=== PATIENT | female | born 1975 | race Caucasian/White ===

== ENCOUNTER 2016-09-03 16:06 | Inpatient (IN) | payer MEDICARE, MEDICAID ==
[2016-09-03] MEDS ORDERED: Tuberculin 5 TU/0.1 mL UD ID ONE ×2 (16:50→17:32)
--- NOTE | 2016-09-03 16:59 | ED Physician Chart ---
Chief Complaint/HPI - Patient Information Date Seen:: 09/03/16 Time Seen:: 16:53 Chief Complaint:: multiple complaints History of Present Illness:: pt has profound MR. was sent from facility for concern about PEG site redness and worry that peg tube is malpositioned?? also staff noted recent blood tinged cough. pt is severe MR and nonverbal and cant communicated through nonverbal means. sev dev limitations. no known fever or weakness. no known melena. red around peg tube site. pt of dr long Allergies:: Allergies Allergy/AdvReac Type Severity Reaction Status Date / Time ceftriaxone Allergy Verified 06/14/16 04:59 tetanus toxoid, adsorbed Allergy Verified 06/14/16 04:59 valproic acid Allergy Verified 06/14/16 04:59 Vitals:: Vital Signs - 8 hr 09/03/16 16:06 Temp 96.6 F HR 62 RR 16 BP 96/60 O2 Sat % 93 Historian:: Medical Records Review:: Transfer documents Reviewed, Patient unable to respond Review of Systems - Review of Systems General/Constitutional: No fever, No chills, No weight loss, No weakness, No diaphoresis, No edema, Other (nonverbal pt w sev limited ros/pmh availability) Skin: Skin lesions, No rash, No bruising Head: No headache, No light-headedness Eyes: No loss of vision, No pain, No diplopia ENT: No earache, No nasal drainage, No sore throat Neck: No neck pain, No swelling, No thyromegaly, No stiffness, No mass noted Cardio Vascular: No chest pain, No palpitations, No PND, No orthopnea, No edema Pulmonary: No SOB, Cough, Sputum, No wheezing, Other (hemoptysis) GI: No nausea, No vomiting, No diarrhea, No pain, No melena, No hematochezia, No constipation, Hematemesis (?) G/U: No dysuria, No frequency, No hematuria Musculoskeletal: No bone or joint pain, No back pain, No muscle pain Endocrine: No polyuria, No polydipsia Psychiatric: No prior psych history, No depression, No anxiety, No suicidal ideation Hematopoietic: No bruising, No lymphadenopathy Allergic/Immuno: No urticaria, No angioedema Neurological: No syncope, No focal symptoms, No weakness, No paresthesia, No headache, No seizure, No dizziness, Confusion, No vertigo Past Medical History - Past Medical History Past Medical History: HTN, PUD/GERD (dysphagia), Seizures, Other (MR, "spastic quad"?, blind, anemia, ) Social History: Care Facility Surgical History: PEG/GTube Medication: Reviewed Family Medical History - Family Member Mother History Unknown: Yes Ethnicity: Unknown Physical Exam - Physical Examination General/Constitutional: Awake, Well-developed, well-nourished, Alert, No distress, Non-toxic appearing Other Gen/Cons comments:: spastic choreoathetoid mvts/resltlessness. nonverbal. nonseptic. alert. no cough heard. no resp distress at present. lungs clear. mild 1 inch redness around peg tube site in luq abd. no active seepage now. Head: Atraumatic Other Head comments:: micorocephalic Eyes: Lids, conjuctiva normal, PERRL, EOMI Skin: Nl inspection, No rash, No skin lesions, No ecchymosis, Well hydrated, No lymphadenopathy ENMT: External ears, nose nl, Nasal exam nl, Lips, teeth, gums nl Neck: Nontender, Full ROM w/o pain, No JVD, No nuchal rigidity, No bruit, No mass, No stridor Respiratory: Nl effort/Exclusion, Clear to Auscultation, No Wheeze/Rhonchi/Rales Cardio Vascular: RRR, No murmur, gallop, rubs, NL S1 S2 GI: No tenderness/rebounding/guarding, No organomegaly, No hernia, Normal BS's, Nondistended, No mass/bruits, No McBurney tenderness : No CVA tenderness Extremities: No tenderness or effusion, Full ROM, normal strength in all extremities, No edema, Normal digits & nails Neuro/Psych: DTR's symmetric Other Neuro/Psych comments:: spastic mvts all limbs/ contractures. nonverbal. Misc: normal gait, Normal back, No paraspinal tenderness Labs/Radiology/EKG Results - Lab Results Results: Laboratory Tests 09/03/16 09/03/16 09/03/16 17:15 17:15 17:15 WBC 9.9 D RBC 5.00 Hgb 14.4 D Hct 43.4 D MCV 86.8 MCH 28.8 MCHC Differential 33.1 RDW 12.4 Plt Count 253 D MPV 8.5 Neutrophils % 67.4 Lymphocytes % 15.0 L Monocytes % 10.1 H Eosinophils % 5.7 H Basophils % 1.8 Sodium 134 L Potassium 4.0 Chloride 102 Carbon Dioxide 22.8 Anion Gap 13.2 BUN 22 Creatinine 0.6 Est GFR ( Amer) > 60.0 Est GFR (Non-Af Amer) > 60.0 BUN/Creatinine Ratio 36.7 Glucose 88 Whole Bld Lactic Acid 2.14 H* Calcium 9.7 Total Bilirubin 0.3 AST 19 ALT 26 Alkaline Phosphatase 94 Total Protein 8.6 H Albumin 4.2 Globulin 4.4 Albumin/Globulin Ratio 1.0 Carbamazepine 09/03/16 17:15 WBC RBC Hgb Hct MCV MCH MCHC Differential RDW Plt Count MPV Neutrophils % Lymphocytes % Monocytes % Eosinophils % Basophils % Sodium Potassium Chloride Carbon Dioxide Anion Gap BUN Creatinine Est GFR ( Amer) Est GFR (Non-Af Amer) BUN/Creatinine Ratio Glucose Whole Bld Lactic Acid Calcium Total Bilirubin AST ALT Alkaline Phosphatase Total Protein Albumin Globulin Albumin/Globulin Ratio Carbamazepine 4.5 - Radiology Results Results: cxr chronic change but no acute process ED Septic Shock - . Is Septic Shock (SBP<90, OR Lactate>4 mmol\\L) present?: No - <6hrs of presentation: Vital Signs: Vital Signs - 8 hr 09/03/16 16:06 Temp 96.6 F HR 62 RR 16 BP 96/60 O2 Sat % 93 Reassessment (Disposition) - Reassessment Reassessment:: brian Long...will admit for upper endoscopy and GI consult to replace presumptively-leaky peg tube. Reassessment Condition:: Unchanged - Diagnosis Diagnosis:: 1 hemoptysis vs upper GI bleed 2 CP patient//severe MR 3 PEG tube problem - Patient Disposition Admitted to:: Med/Surg Condition at Disposition:: Unchanged
[2016-09-03 17:32] LABS: % BASOPHILS 1.8 % (0.0-2.0); % EOSINOPHILS 5.7 % (0.0-5.0); % MONOCYTES 10.1 % (2.0-10.0); % NEUTROPHILS 67.4 % (40.0-80.0); MEAN CELL VOLUME 86.8 fl (81-100); MEAN CORPUSCULAR HEMOGLOBIN 28.8 pg (27.0-31.0); MEAN CORPUSCULAR HGB CONC 33.1 pg (28.0-36.0); MEAN PLATELET VOLUME 8.5 fl; NEUTROPHILE ABSOLUTE 6.6 Th/cmm (1.8-8.0); RED CELL DISTRIBUTION WIDTH 12.4 % (11.5-20.0)
[2016-09-03 17:34] LABS: HEMATOCRIT 43.4 % (35.0-45.0); HEMOGLOBIN 14.4 gm/dL (11.7-15.5); WHITE BLOOD COUNT 9.9 Th/cmm (4.8-10.8)
[2016-09-03 17:35] LABS: PLATELET COUNT 253 Th/cmm (150-400)
[2016-09-03 17:52] LABS: ALKALINE PHOSPHATASE 94 U/L (34-104); ANION GAP 13.2 (7.0-16.0); BILIRUBIN,TOTAL 0.3 mg/dL (0.3-1.0); BUN - UREA NITROGEN 22 mg/dL (7-25); BUN/CREATININE RATIO 36.7; CALCIUM SERUM 9.7 mg/dL (8.6-10.3); CARBON DIOXIDE 22.8 mEq/L (21.0-31.0); CHLORIDE 102 mEq/L (98-107); CREATININE - SERUM 0.6 mg/dL (0.6-1.2); GLUCOSE 88 mg/dL (70-105); SGOT 19 U/L (13-39); SGPT/ALT 26 U/L (7-52); SODIUM SERUM 134 mEq/L (136-145)
--- NOTE | 2016-09-03 22:45 | Admit Criteria Form ---
Admit Criteria Forms - Admit Criteria Diagnosis: GASTROINTESTINAL BLEEDING, UPPER Clinical Indications for Admission to Inpatient Care ( Place 'X' for any and all applicable criteria): Admission is indicated for ANY ONE of the following(1)(2)(3)(4)(5)(6): [ ]I. Active bleeding (eg, fresh voluminous blood in emesis or nasogastric aspirate) [ ]II. Associated conditions requiring hospitalization (eg, perforation, obstruction from ulcer) [X ]III. Inpatient admission required rather than observation care (Also use Gastrointestinal Bleeding, Upper: Observation Care as appropriate) because of ANY ONE of the following: [ ]a) Hemodynamic instability that is severe or persistent [ ]b) Anemia requiring inpatient admission as indicated by ALL of the following: [ ]1) Presence of significant clinical finding indicated by ANY ONE of the following: [ ]A. Tachycardia for age [ ]B. Orthostatic vital sign changes [ ]C. Cognitive impairment [ ]D. Heart failure [ ]E. Chest pain [ ]F. Exertional dyspnea [ ]G. Other findings suggesting inadequate perfusion (eg, peripheral or myocardial ischemia, end organ dysfunction) [ ]2) Initial (eg, emergency department, observation care) treatment with transfusion or volume replacement is judged inappropriate (due to severity of the finding) or has been ineffective [ ]c) Severe pain requiring acute inpatient management [ ]d) High-risk low platelet count [ ]e) IV fluid to replace significant ongoing losses (greater than 3 L/m2 per day) [ ]f) Immediate inpatient surgery [ X]g) Other condition, treatment or monitoring requiring inpatient admission [ ]IV. Severe liver disease (eg, cirrhosis) [ ]V. Significant active comorbid disease [ ]. Anticoagulation therapy [ ]VII. High-risk endoscopic features (arterial bleeding, adherent clot, nonbleeding visible vessel, varices, flat red spots, ulcer size greater than 2 cm, or portal hypertensive gastropathy) [ ]VIII. Previous aortic graft placement or known aortic aneurysm [ ]IX. Coagulopathy [ ]X. Syncope Extended stay beyond goal length of stay may be needed for(1)(2): [ ]a) Emergency surgery [ ]b) Varices [ ]c) Coagulation abnormalities [ ]d) Recurrent, obscure, or persistent bleeding or continued Hemodynamic instability [ ]e) Associated conditions requiring surgery (eg, perforated gastric ulcer, gastric outlet obstruction) [ ]f) Active comorbidities (eg, renal insufficiency, heart failure, pre- existing liver disease) The original [facility] [employer] content created by [facility] [employer] has been revised. The portions of the content which have been revised are identified through the use of italic text or in bold, and [facility] has neither reviewed nor approved the modified material. All other unmodified content is copyright [facility] [employer]. Please see references footnoted in the original [facility] [employer] edition 2016
[2016-09-03] MEDS ORDERED: Fleet Enema 135 mL RC PRN (22:53)
[2016-09-03] MEDS ORDERED: Maalox 30 mL Cup PO PRN (22:56)
[2016-09-03] MEDS: D5-0.45NS 1,000 ML IV SCH (23:27)
[2016-09-04] MEDS: Levofloxacin 500mg/100mL 500 MG/100 ML BAG IV SCH ×2 (02:51→23:43)
[2016-09-04 07:32] LABS: HEMOGLOBIN 13.2 gm/dL (11.7-15.5); MEAN CELL VOLUME 84.6 fl (81-100); MEAN CORPUSCULAR HEMOGLOBIN 28.9 pg (27.0-31.0); MEAN CORPUSCULAR HGB CONC 34.1 pg (28.0-36.0); MEAN PLATELET VOLUME 8.9 fl; PLATELET COUNT 271 Th/cmm (150-400); RED BLOOD COUNT 4.55 Mil/cmm (3.80-5.10); RED CELL DISTRIBUTION WIDTH 12.6 % (11.5-20.0); WHITE BLOOD COUNT 11.2 Th/cmm (4.8-10.8)
[2016-09-04 07:35] LABS: HEMATOCRIT 38.5 % (35.0-45.0)
[2016-09-04] MEDS ORDERED: Ipratropium Neb 0.5 mg/2.5 mL UD HHN PRN (07:35)
[2016-09-04] MEDS ORDERED: Albuterol Nebulizer 2.5mg/3mL HHN PRN (07:35)
[2016-09-04 07:43] LABS: INR 1.1 (0.5-1.4)
[2016-09-04 07:49] LABS: ANION GAP 11.5 (7.0-16.0); BUN - UREA NITROGEN 23 mg/dL (7-25); BUN/CREATININE RATIO 38.3; CALCIUM SERUM 9.3 mg/dL (8.6-10.3); CARBON DIOXIDE 24.2 mEq/L (21.0-31.0); CHLORIDE 102 mEq/L (98-107); CREATININE - SERUM 0.6 mg/dL (0.6-1.2); GLUCOSE 143 mg/dL (70-105); MAGNESIUM 2.2 mg/dL (1.9-2.7); POTASSIUM SERUM 3.7 mEq/L (3.5-5.1); SODIUM SERUM 134 mEq/L (136-145)
[2016-09-04 08:21] LABS: BAND NEUTROPHILE 3 % (0-10); EOSINOPHIL 6 % (0-5); NEUTROPHILS 76 % (40-80); PLATELET ESTIMATE ADEQUATE (NORMAL); TOTAL CELLS COUNTED 100
[2016-09-04 08:22] LABS: PLATELET MORPHOLOGY NORMAL (NORMAL)
[2016-09-04 08:27] LABS: BNP 8.6 pg/mL (5.0-100.0)
[2016-09-04 08:56] LABS: TSH 2.05 uIU/ml (0.34-5.60)
[2016-09-04] MEDS: Multivitamin w/ Minerals Tab GT SCH (08:56)
[2016-09-04] MEDS: Benztropine 1 MG TAB GT SCH ×2 (08:56→16:38)
[2016-09-04] MEDS: carBAMazepine 200 mg/10 mL UDC GT SCH ×3 (08:57→21:56)
[2016-09-04] MEDS: Levetiracetam 500 mg/5mL 5mL UDC GT SCH ×2 (08:57→16:37)
[2016-09-04] MEDS: Potassium Chloride Elixir 20 mEq /15 mL UDC GT SCH (08:57)
[2016-09-04] MEDS: Ferrous Sulfate 300 MG/5 ML UDC GT SCH ×2 (08:57→16:37)
[2016-09-04] MEDS: POLYETHYLENE GLYCOL 3350 17 GM PACK GT SCH (08:58)
[2016-09-04] MEDS ORDERED: Ascorbic Acid 500 mg/5 mL UDC GT SCH (09:00)
--- NOTE | 2016-09-04 09:39 | Diagnostic Imaging Report ---
CHEST X-RAY: AP view INDICATION: Hemoptysis COMPARISON: 06/14/2016 FINDINGS: Mild chronic changes are seen. No focal consolidation or pleural effusions. Heart size is normal. Degenerative changes of the spine are noted. IMPRESSION: Mild chronic lung changes with no focal consolidation identified.
--- NOTE | 2016-09-04 14:13 | Internal Medicine Prog Note ---
Internal Medicine Subjective - Subjective Service Date: 09/04/16 (dc summary [id number]) Internal Medicine Objective - Results Result Diagrams: 09/04/16 06:50 09/04/16 06:50 Recent Labs: Laboratory Last Values WBC 11.2 Th/cmm (4.8-10.8) H 09/04/16 06:50 RBC 4.55 Mil/cmm (3.80-5.10) 09/04/16 06:50 Hgb 13.2 gm/dL (11.7-15.5) 09/04/16 06:50 Hct 38.5 % (35.0-45.0) D 09/04/16 06:50 MCV 84.6 fl (81-100) 09/04/16 06:50 MCH 28.9 pg (27.0-31.0) 09/04/16 06:50 MCHC Differential 34.1 pg (28.0-36.0) 09/04/16 06:50 RDW 12.6 % (11.5-20.0) 09/04/16 06:50 Plt Count 271 Th/cmm (150-400) 09/04/16 06:50 MPV 8.9 fl 09/04/16 06:50 Neutrophils % 67.4 % (40.0-80.0) 09/03/16 17:15 Band Neutrophils % 3 % (0-10) 09/04/16 06:50 Lymphocytes % 15.0 % (20.0-50.0) L 09/03/16 17:15 Monocytes % 10.1 % (2.0-10.0) H 09/03/16 17:15 Eosinophils % 5.7 % (0.0-5.0) H 09/03/16 17:15 Basophils % 1.8 % (0.0-2.0) 09/03/16 17:15 Neutrophils (Manual) 76 % (40-80) 09/04/16 06:50 Lymphocytes 4 % (20-50) L 09/04/16 06:50 Monocytes 11 % (2-10) H 09/04/16 06:50 Eosinophils 6 % (0-5) H 09/04/16 06:50 Platelet Estimate ADEQUATE (NORMAL) 09/04/16 06:50 Platelet Morphology NORMAL (NORMAL) 09/04/16 06:50 RBC Morph Micro Appear NORMAL (NORMAL) 09/04/16 06:50 PT 11.0 SECONDS (9.5-11.5) 09/04/16 06:50 INR 1.10 (0.5-1.4) 09/04/16 06:50 PTT (Actin FS) 26.3 SECONDS (26.0-38.0) 09/04/16 06:50 Sodium 134 mEq/L (136-145) L 09/04/16 06:50 Potassium 3.7 mEq/L (3.5-5.1) 09/04/16 06:50 Chloride 102 mEq/L (98-107) 09/04/16 06:50 Carbon Dioxide 24.2 mEq/L (21.0-31.0) 09/04/16 06:50 Anion Gap 11.5 (7.0-16.0) 09/04/16 06:50 BUN 23 mg/dL (7-25) 09/04/16 06:50 Creatinine 0.6 mg/dL (0.6-1.2) 09/04/16 06:50 Est GFR ( Amer) > 60.0 ml/min 09/04/16 06:50 Est GFR (Non-Af Amer) > 60.0 ml/min 09/04/16 06:50 BUN/Creatinine Ratio 38.3 09/04/16 06:50 Glucose 143 mg/dL (70-105) H 09/04/16 06:50 Whole Bld Lactic Acid 1.00 mmol/L (0.60-2.00) 09/04/16 06:50 Calcium 9.3 mg/dL (8.6-10.3) 09/04/16 06:50 Magnesium 2.2 mg/dL (1.9-2.7) 09/04/16 06:50 Total Bilirubin 0.3 mg/dL (0.3-1.0) 09/03/16 17:15 AST 19 U/L (13-39) 09/03/16 17:15 ALT 26 U/L (7-52) 09/03/16 17:15 Alkaline Phosphatase 94 U/L (34-104) 09/03/16 17:15 Ammonia 58 umol/L (16-53) H 09/04/16 06:50 B-Natriuretic Peptide 8.6 pg/mL (5.0-100.0) 09/04/16 06:50 Total Protein 8.6 gm/dL (6.0-8.3) H 09/03/16 17:15 Albumin 4.2 gm/dL (3.7-5.3) 09/03/16 17:15 Globulin 4.4 gm/dL 09/03/16 17:15 Albumin/Globulin Ratio 1.0 (1.0-1.8) 09/03/16 17:15 TSH 2.05 uIU/ml (0.34-5.60) 09/04/16 06:50 Carbamazepine 4.5 ug/ml (4.0-12.0) 09/03/16 17:15 - Physical Exam Vitals and I&O: Vital Signs Temp 97.8 F 09/04/16 12:23 Pulse 64 09/04/16 12:23 Resp 17 09/04/16 12:23 BP 110/57 09/04/16 12:23 Pulse Ox 95 09/04/16 12:23 Intake & Output 09/03/16 09/04/16 09/04/16 18:59 06:59 18:59 Intake Total 100 Balance 100 Weight (lbs) 87 lb Intake: Intake, IV Amount 100 Levofloxacin 500mg/100mL 100 500 mg In 100 ml @ 100 mls/hr IV Q24HR [facility] Rx#: [id number] Oral 0 Other: # Voids 3 # Bowel Movements 1 Active Medications: Current Medications Acetaminophen (Tylenol) 650 mg GT Q4H PRN PRN Reason: Pain or Fever >101 Stop: 11/02/16 22:52 Al Hydrox/Mg Hydrox/Simethicone (Maalox) 30 ml PO Q6HR PRN PRN Reason: Constipation Stop: 11/02/16 22:55 Albuterol Sulfate (Albuterol 2.5mg/3ml Neb Ud) 2.5 mg HHN Q4H PRN PRN Reason: Shortness of Breath Stop: 11/03/16 07:34 Ascorbic Acid (Vitamin C) 500 mg GT DAILY [facility] Stop: 11/03/16 08:59 Last Admin: 09/04/16 11:05 Dose: Not Given Benztropine Mesylate (Cogentin) 1 mg GT BID [facility] Stop: 11/03/16 08:59 Last Admin: 09/04/16 08:56 Dose: 1 mg Bisacodyl (Dulcolax 10 Mg Supp) 10 mg RC DAILY PRN PRN Reason: Constipation Stop: 11/02/16 23:31 Calcium Carbonate (Tums) 500 mg GT BID JU[facility] Stop: 11/03/16 08:59 Last Admin: 09/04/16 08:56 Dose: 500 mg Carbamazepine (Tegretol) 200 mg GT TID JUANI PRN Reason: Protocol Stop: 11/03/16 08:59 Last Admin: 09/04/16 14:09 Dose: 200 mg Cholecalciferol (Vitamin D3) 1,000 iu GT DAILY [facility] Stop: 11/03/16 08:59 Last Admin: 09/04/16 08:56 Dose: 1,000 iu Ferrous Sulfate (Iron) 450 mg GT BID [facility] Stop: 11/03/16 08:59 Last Admin: 09/04/16 08:57 Dose: 450 mg Glycopyrrolate (Robinul) 2 mg GT DAILY [facility] Stop: 11/03/16 08:59 Last Admin: 09/04/16 08:56 Dose: 2 mg Dextrose/Sodium Chloride (D5-0.45ns) 1,000 mls @ 70 mls/hr IV .[id number] [facility] Stop: 11/02/16 22:59 Last Admin: 09/03/16 23:27 Dose: 70 mls/hr Levofloxacin (Levaquin Pb) 500 mg in 100 mls @ 100 mls/hr IV Q24HR [facility] Stop: 11/02/16 22:59 Last Infusion: 09/04/16 03:51 Dose: Infused Ipratropium Slater (Atrovent Neb 0.5mg/2.5ml) 0.5 mg HHN Q3H PRN PRN Reason: Shortness of Breath Stop: 11/03/16 07:34 Levetiracetam (Keppra) 1,000 mg GT BID [facility] Stop: 11/03/16 08:59 Last Admin: 09/04/16 08:57 Dose: 1,000 mg Loperamide HCl (Imodium 1mg/5ml Suspension) 3 mg GT Q6H PRN PRN Reason: Diarrhea Stop: 11/02/16 23:28 Metoprolol Tartrate (Lopressor) 25 mg GT DAILY [facility] Stop: 11/03/16 08:59 Last Admin: 09/04/16 08:56 Dose: 25 mg Ondansetron HCl (Zofran) 4 mg IV Q8H PRN PRN Reason: Nausea / Vomiting Stop: 11/02/16 22:55 Last Admin: 09/04/16 06:37 Dose: 4 mg Pantoprazole Sodium (Protonix) 40 mg IVP BID [facility]UANI Stop: 11/03/16 08:59 Last Admin: 09/04/16 08:57 Dose: 40 mg Polyethylene Glycol (Miralax) 17 gm GT DAILY [facility] Stop: 11/03/16 08:59 Last Admin: 09/04/16 08:58 Dose: 17 gm Potassium Chloride (Potassium Chloride Elixir) 10 meq GT DAILY [facility] Stop: 11/03/16 08:59 Last Admin: 09/04/16 08:57 Dose: 10 meq Sodium Phosphate (Fleet Enema) 135 ml RC DAILY PRN PRN Reason: Constipation Stop: 11/02/16 22:52 - Procedures Procedures: Procedures Procedure Code Date INSERT INDWELLING CATH 57.94 12/31/09 INSERT PICC CATH 60250 05/18/14 VENOUS CATHETERIZATION NEC 38.93 05/18/14 Internal Medicine Assmt/Plan - Assessment Assessment: Upper Gi Bleed Gtube malfunction fever possible sepsis spastic quadriplegia htn seizures
--- NOTE | 2016-09-04 15:30 | History & Physical ---
CHIEF COMPLAINT: G-tube malfunction. HISTORY OF PRESENT ILLNESS: This is a 41-year-old female who is a resident of [facility] who is brought here to [facility] for G-tube malfunction and also surrounding the G-tube site is noted with redness. Also, per nursing staff at [facility], the patient was noted with blood tinged cough. The patient had no fevers. For this reason, the patient is now admitted to the med/surg unit. PAST MEDICAL HISTORY: Hypertension, GERD, seizures, MR, spastic quadriplegia, anemia. SOCIAL HISTORY: The patient resides at [facility], requiring 24-hour nursing care. PAST SURGICAL HISTORY: PEG. MEDICATIONS: Please see medication reconciliation sheet. REVIEW OF SYSTEMS: Unable to obtain, patient is nonverbal. PHYSICAL EXAMINATION: GENERAL: The patient is well developed, well nourished, no acute distress. VITAL SIGNS: Temperature 97.8, heart rate 64, blood pressure 110/57, respirations 17, O2 95%. HEENT: Head; normocephalic, atraumatic. NECK: Supple. No mass. LUNGS: Few rhonchi bilaterally upon auscultation. CARDIOVASCULAR: Regular rate and rhythm. No murmurs or gallops. SKIN: Intact, warm and dry to touch. ABDOMEN: Soft, nontender, nondistended. Positive bowel sounds in all 4 quadrants. LABORATORY DATA: WBC 11.2, H and H 13.2 and 38.5, platelet of 271. Sodium 134, potassium 3.7, chloride of 102, carbon dioxide 24.2, BUN 23, creatinine 0.6. Whole lactic acid of 1.00. The patient said on admission her whole lactic acid was at 2.14. The patient had a chest x-ray done in the ER and the impression is mild chronic lung changes with no focal consolidation identified. ASSESSMENT: 1. Upper gastrointestinal bleed. 2. G-tube malfunction. 3. Fever, possible sepsis. 4. Hypertension. 5. Spastic quadriplegia. 6. Seizures. PLAN: The patient will be admitted to the med/surg unit. The patient will have a consultation with Dr. Roman. The patient will also have wound care. The patient to be on IV fluids for hydration. The patient will be on IV antibiotics of Levaquin, also Protonix 40 mg IV push. We will monitor the patient's H and H level. We will keep the patient hydrated. We will continue to monitor the patient. JOB# [id number]
[2016-09-04] MEDS: D5-0.45NS 1,000 ML IV SCH (16:48)
[2016-09-04 18:50] LABS: URINE BILIRUBIN NEGATIVE (NEGATIVE); URINE BLOOD TRACE (NEGATIVE); URINE COLOR YELLOW; URINE GLUCOSE (UA) NEGATIVE (NEGATIVE); URINE KETONE NEGATIVE (NEGATIVE)
[2016-09-04 18:51] LABS: URINE BACTERIA NONE SEEN /hpf (NONE SEEN); URINE EPITHELIAL CELLS NONE SEEN /lpf (FEW); URINE PROTEIN 30 mg/dL (NEGATIVE); URINE UROBILINOGEN 0.2 E.U./dL (0.2 - 1.0); URINE WBC NONE SEEN /hpf (0-5)
[2016-09-04] MEDS ORDERED: Menthol/Zinc Oxide Oint 113gm Tube TP PRN (18:57)
[2016-09-05 07:06] LABS: % EOSINOPHILS 3.5 % (0.0-5.0); % LYMPHOCYTES 12.8 % (20.0-50.0); % MONOCYTES 10.6 % (2.0-10.0); % NEUTROPHILS 73.1 % (40.0-80.0); HEMATOCRIT 36.3 % (35.0-45.0); HEMOGLOBIN 12.5 gm/dL (11.7-15.5); MEAN CELL VOLUME 86.9 fl (81-100); MEAN CORPUSCULAR HEMOGLOBIN 29.8 pg (27.0-31.0); MEAN CORPUSCULAR HGB CONC 34.3 pg (28.0-36.0); MEAN PLATELET VOLUME 8.6 fl; NEUTROPHILE ABSOLUTE 8.2 Th/cmm (1.8-8.0); PLATELET COUNT 243 Th/cmm (150-400); RED BLOOD COUNT 4.18 Mil/cmm (3.80-5.10); RED CELL DISTRIBUTION WIDTH 12.3 % (11.5-20.0); WHITE BLOOD COUNT 11.2 Th/cmm (4.8-10.8)
[2016-09-05 07:33] LABS: ANION GAP 11.4 (7.0-16.0); BUN - UREA NITROGEN 14 mg/dL (7-25); CARBON DIOXIDE 21.4 mEq/L (21.0-31.0); CHLORIDE 101 mEq/L (98-107); CREATININE - SERUM 0.5 mg/dL (0.6-1.2); GLUCOSE 118 mg/dL (70-105); POTASSIUM SERUM 3.8 mEq/L (3.5-5.1); SODIUM SERUM 130 mEq/L (136-145)
[2016-09-05 07:34] LABS: CALCIUM SERUM 8.8 mg/dL (8.6-10.3)
--- NOTE | 2016-09-05 09:31 | Consultation ---
REASON FOR CONSULTATION: Malfunctioning G-tube. HISTORY OF PRESENT ILLNESS: This consult was obtained through the courtesy of Dr. Long for this 41-year-old with history of mental retardation, seizure disorder, quadriplegia, anemia, hypertension, admitted to the hospital for malfunctioning G-tube. GI consult was called in for further evaluation. The patient is responsive, but nonverbal, not oriented, unable to provide any history. PAST MEDICAL HISTORY: Hypertension, seizure, mental retardation, spastic quadriplegia, anemia. PAST SURGICAL HISTORY: Not known other than the G-tube, this is endoscopically. SOCIAL HISTORY: Nonsmoker, nonalcoholic, non IV drug abuser. FAMILY HISTORY: Noncontributory. ALLERGIES: ROCEPHIN, TETANUS TOXOID, VALPROIC ACID. MEDICATIONS: Tylenol, Maalox, albuterol, vitamin C, Cogentin, Dulcolax, Tegretol, Tums, vitamin D, iron, Robinul, Atrovent, Keppra, Levaquin, Lopressor, Zofran, Protonix. REVIEW OF SYSTEMS: Unobtainable. PHYSICAL EXAMINATION: GENERAL: The patient is nonverbal. VITAL SIGNS: Blood pressure is 115/64, heart rate 89, respiratory rate 16, temperature is 98.1. HEAD AND NECK: Pupils reactive to light. Extraocular muscles could not be tested. Oral cavity, no lesion. NECK: Supple, no jugular venous distention, no carotid lymph node. CHEST: Good respiratory movements. LUNGS: Showed few rhonchi. CARDIOVASCULAR: Regular rate and rhythm. No murmur or gallop. ABDOMEN: Soft. There is a G-tube in place. EXTREMITIES: Lower extremities, no edema. CENTRAL NERVOUS SYSTEM: Unable to evaluate. LABORATORY DATA: H and H and platelets are normal. PT is normal. Liver enzymes are normal. IMPRESSION: A 41-year-old mentally challenged with malfunctioning gastrostomy tube. ASSESSMENT AND PLAN: Malfunctioning G-tube. The tube itself has a balloon, which seems to have been stuck into the duodenum , so we deflated the tube, pulled it back into the stomach. I then deflated and pulled it out and a new replacement 1 size 24 was inserted through the same hole, balloon was inflated, secured in place. The patient tolerated the procedure well. There were no immediate postoperative complications. RECOMMENDATIONS: Resume feeding. Thank you, Dr. Long, for allowing me to participate in the care of the patient. Regarding her other issues such as mental retardation, seizure disorder, etc. as per your management. JOB# [id number] [email or web address]
[2016-09-05] MEDS: Potassium Chloride Elixir 20 mEq /15 mL UDC GT SCH (10:06)
[2016-09-05] MEDS: Ferrous Sulfate 300 MG/5 ML UDC GT SCH ×2 (10:06→17:10)
[2016-09-05] MEDS: carBAMazepine 200 mg/10 mL UDC GT SCH ×3 (10:07→21:32)
[2016-09-05] MEDS: Multivitamin w/ Minerals Tab GT SCH (10:07)
[2016-09-05] MEDS: Levetiracetam 500 mg/5mL 5mL UDC GT SCH ×2 (10:07→17:10)
[2016-09-05] MEDS: POLYETHYLENE GLYCOL 3350 17 GM PACK GT SCH (10:07)
[2016-09-05] MEDS: Benztropine 1 MG TAB GT SCH ×2 (10:07→17:11)
[2016-09-05] MEDS: D5-0.45NS 1,000 ML IV SCH (10:08)
[2016-09-05 11:12] LABS: FOLIC ACID >20.0 ng/mL (>3.0)
[2016-09-05] MEDS ORDERED: D5-0.45NS 1,000 ML IV SCH (12:52)
--- NOTE | 2016-09-05 12:54 | Internal Medicine Prog Note ---
Internal Medicine Subjective - Subjective Service Date: 09/05/16 Patient seen and examined:: with staff Patient is:: awake Per staff patient is:: no adverse event Internal Medicine Objective - Results Result Diagrams: 09/05/16 06:51 09/05/16 06:51 Recent Labs: Laboratory Last Values WBC 11.2 Th/cmm (4.8-10.8) H 09/05/16 06:51 RBC 4.18 Mil/cmm (3.80-5.10) 09/05/16 06:51 Hgb 12.5 gm/dL (11.7-15.5) 09/05/16 06:51 Hct 36.3 % (35.0-45.0) 09/05/16 06:51 MCV 86.9 fl (81-100) 09/05/16 06:51 MCH 29.8 pg (27.0-31.0) 09/05/16 06:51 MCHC Differential 34.3 pg (28.0-36.0) 09/05/16 06:51 RDW 12.3 % (11.5-20.0) 09/05/16 06:51 Plt Count 243 Th/cmm (150-400) 09/05/16 06:51 MPV 8.6 fl 09/05/16 06:51 Neutrophils % 73.1 % (40.0-80.0) 09/05/16 06:51 Band Neutrophils % 3 % (0-10) 09/04/16 06:50 Lymphocytes % 12.8 % (20.0-50.0) L 09/05/16 06:51 Monocytes % 10.6 % (2.0-10.0) H 09/05/16 06:51 Eosinophils % 3.5 % (0.0-5.0) 09/05/16 06:51 Basophils % 0.0 % (0.0-2.0) 09/05/16 06:51 Neutrophils (Manual) 76 % (40-80) 09/04/16 06:50 Lymphocytes 4 % (20-50) L 09/04/16 06:50 Monocytes 11 % (2-10) H 09/04/16 06:50 Eosinophils 6 % (0-5) H 09/04/16 06:50 Platelet Estimate ADEQUATE (NORMAL) 09/04/16 06:50 Platelet Morphology NORMAL (NORMAL) 09/04/16 06:50 RBC Morph Micro Appear NORMAL (NORMAL) 09/04/16 06:50 PT 11.0 SECONDS (9.5-11.5) 09/04/16 06:50 INR 1.10 (0.5-1.4) 09/04/16 06:50 PTT (Actin FS) 26.3 SECONDS (26.0-38.0) 09/04/16 06:50 Sodium 130 mEq/L (136-145) L 09/05/16 06:51 Potassium 3.8 mEq/L (3.5-5.1) 09/05/16 06:51 Chloride 101 mEq/L (98-107) 09/05/16 06:51 Carbon Dioxide 21.4 mEq/L (21.0-31.0) 09/05/16 06:51 Anion Gap 11.4 (7.0-16.0) 09/05/16 06:51 BUN 14 mg/dL (7-25) 09/05/16 06:51 Creatinine 0.5 mg/dL (0.6-1.2) L 09/05/16 06:51 Est GFR ( Amer) > 60.0 ml/min 09/05/16 06:51 Est GFR (Non-Af Amer) > 60.0 ml/min 09/05/16 06:51 BUN/Creatinine Ratio 28.0 09/05/16 06:51 Glucose 118 mg/dL (70-105) H 09/05/16 06:51 Whole Bld Lactic Acid 1.00 mmol/L (0.60-2.00) 09/04/16 06:50 Calcium 8.8 mg/dL (8.6-10.3) 09/05/16 06:51 Magnesium 2.2 mg/dL (1.9-2.7) 09/04/16 06:50 Total Bilirubin 0.3 mg/dL (0.3-1.0) 09/03/16 17:15 AST 19 U/L (13-39) 09/03/16 17:15 ALT 26 U/L (7-52) 09/03/16 17:15 Alkaline Phosphatase 94 U/L (34-104) 09/03/16 17:15 Ammonia 58 umol/L (16-53) H 09/04/16 06:50 B-Natriuretic Peptide 8.6 pg/mL (5.0-100.0) 09/04/16 06:50 Total Protein 8.6 gm/dL (6.0-8.3) H 09/03/16 17:15 Albumin 4.2 gm/dL (3.7-5.3) 09/03/16 17:15 Globulin 4.4 gm/dL 09/03/16 17:15 Albumin/Globulin Ratio 1.0 (1.0-1.8) 09/03/16 17:15 Vitamin B12 956 pg/mL (211-946) H 09/04/16 06:50 Folic Acid >20.0 ng/mL (>3.0) 09/04/16 06:50 TSH 2.05 uIU/ml (0.34-5.60) 09/04/16 06:50 Urine Source CATH 09/04/16 17:40 Urine Color YELLOW 09/04/16 17:40 Urine Clarity CLEAR (CLEAR) 09/04/16 17:40 Urine pH 7.0 09/04/16 17:40 Ur Specific [place] 1.025 (1.005-1.030) 09/04/16 17:40 Urine Protein 30 mg/dL (NEGATIVE) H 09/04/16 17:40 Urine Glucose (UA) NEGATIVE mg/dL (NEGATIVE) 09/04/16 17:40 Urine Ketones NEGATIVE mg/dL (NEGATIVE) 09/04/16 17:40 Urine Blood TRACE (NEGATIVE) 09/04/16 17:40 Urine Nitrate NEGATIVE (NEGATIVE) 09/04/16 17:40 Urine Bilirubin NEGATIVE (NEGATIVE) 09/04/16 17:40 Urine Urobilinogen 0.2 E.U./dL (0.2 - 1.0) 09/04/16 17:40 Ur Leukocyte Esterase NEGATIVE (NEGATIVE) 09/04/16 17:40 Urine RBC 2-5 /hpf (0-5) 09/04/16 17:40 Urine WBC NONE SEEN /hpf (0-5) 09/04/16 17:40 Ur Epithelial Cells NONE SEEN /lpf (FEW) 09/04/16 17:40 Urine Bacteria NONE SEEN /hpf (NONE SEEN) 09/04/16 17:40 Carbamazepine 4.5 ug/ml (4.0-12.0) 09/03/16 17:15 - Physical Exam Vitals and I&O: Vital Signs Temp 98.4 F 09/05/16 12:14 Pulse 86 09/05/16 12:14 Resp 18 09/05/16 12:14 BP 123/66 09/05/16 12:14 Pulse Ox 99 09/05/16 12:14 Intake & Output 09/04/16 09/05/16 09/05/16 18:59 06:59 18:59 Intake Total 7191 301 5512 Balance 7953 874 9717 Intake: Intake, IV Amount 8020 083 7612 D5-0.45NS 1,000 ml @ 70 1000 1000 mls/hr IV .[id number] [facility] Rx #:[id number] Levofloxacin 500mg/100mL 100 500 mg In 100 ml @ 100 mls/hr IV Q24HR [facility] Rx#: [id number] Oral 0 Tube Feeding 800 Other: # Voids 4 # Bowel Movements 1 Active Medications: Current Medications Acetaminophen (Tylenol) 650 mg GT Q4H PRN PRN Reason: Pain or Fever >101 Stop: 11/02/16 22:52 Al Hydrox/Mg Hydrox/Simethicone (Maalox) 30 ml PO Q6HR PRN PRN Reason: Constipation Stop: 11/02/16 22:55 Albuterol Sulfate (Albuterol 2.5mg/3ml Neb Ud) 2.5 mg HHN Q4H PRN PRN Reason: Shortness of Breath Stop: 11/03/16 07:34 Ascorbic Acid (Vitamin C) 500 mg GT DAILY [facility] Stop: 11/04/16 10:29 Benztropine Mesylate (Cogentin) 1 mg GT BID [facility] Stop: 11/03/16 08:59 Last Admin: 09/05/16 10:07 Dose: 1 mg Bisacodyl (Dulcolax 10 Mg Supp) 10 mg RC DAILY PRN PRN Reason: Constipation Stop: 11/02/16 23:31 Calamine/Phenol (Calmoseptine) 1 appl TP QID PRN PRN Reason: Skin Irritation Stop: 11/03/16 18:56 Calcium Carbonate (Tums) 500 mg GT BID [facility] Stop: 11/03/16 08:59 Last Admin: 09/05/16 10:07 Dose: 500 mg Carbamazepine (Tegretol) 200 mg GT TID [facility] PRN Reason: Protocol Stop: 11/03/16 08:59 Last Admin: 09/05/16 10:07 Dose: 200 mg Cholecalciferol (Vitamin D3) 1,000 iu GT DAILY [facility] Stop: 11/03/16 08:59 Last Admin: 09/05/16 10:07 Dose: 1,000 iu Ferrous Sulfate (Iron) 450 mg GT BID [facility] Stop: 11/03/16 08:59 Last Admin: 09/05/16 10:06 Dose: 450 mg Glycopyrrolate (Robinul) 2 mg GT DAILY [facility] Stop: 11/03/16 08:59 Last Admin: 09/05/16 10:07 Dose: 2 mg Dextrose/Sodium Chloride (D5-0.45ns) 1,000 mls @ 70 mls/hr IV .[id number] [facility] Stop: 11/02/16 22:59 Last Admin: 09/05/16 10:08 Dose: 70 mls/hr Levofloxacin (Levaquin Pb) 500 mg in 100 mls @ 100 mls/hr IV Q24HR [facility] Stop: 11/02/16 22:59 Last Infusion: 09/05/16 01:47 Dose: Infused Ipratropium [place] (Atrovent Neb 0.5mg/2.5ml) 0.5 mg HHN Q3H PRN PRN Reason: Shortness of Breath Stop: 11/03/16 07:34 Levetiracetam (Keppra) 1,000 mg GT BID [facility] Stop: 11/03/16 08:59 Last Admin: 09/05/16 10:07 Dose: 1,000 mg Loperamide HCl (Imodium 1mg/5ml Suspension) 3 mg GT Q6H PRN PRN Reason: Diarrhea Stop: 11/02/16 23:28 Metoprolol Tartrate (Lopressor) 25 mg GT DAILY [facility] Stop: 11/03/16 08:59 Last Admin: 09/05/16 10:08 Dose: Not Given Ondansetron HCl (Zofran) 4 mg IV Q8H PRN PRN Reason: Nausea / Vomiting Stop: 11/02/16 22:55 Last Admin: 09/04/16 06:37 Dose: 4 mg Pantoprazole Sodium (Protonix) 40 mg IVP BID [facility] Stop: 11/03/16 08:59 Last Admin: 09/05/16 09:17 Dose: 40 mg Polyethylene Glycol (Miralax) 17 gm GT DAILY [facility] Stop: 11/03/16 08:59 Last Admin: 09/05/16 10:07 Dose: 17 gm Potassium Chloride (Potassium Chloride Elixir) 10 meq GT DAILY [facility] Stop: 11/03/16 08:59 Last Admin: 09/05/16 10:06 Dose: 10 meq Sodium Phosphate (Fleet Enema) 135 ml RC DAILY PRN PRN Reason: Constipation Stop: 11/02/16 22:52 General: alert HEENT: NC/AT Neck: Supple Lungs: CTAB Cardiovascular: RRR, Normal S1, Normal S2, without murmur Abdomen: soft non-tender, non-distended, positive bowel sound - Procedures Procedures: Procedures Procedure Code Date INSERT INDWELLING CATH 57.94 12/31/09 INSERT PICC CATH [id number] 05/18/14 VENOUS CATHETERIZATION NEC 38.93 05/18/14 Internal Medicine Assmt/Plan - Assessment Assessment: Upper Gi Bleed- h/h improving Gtube malfunction- replaced at bedside by Dr. Montenegro fever possible sepsis spastic quadriplegia htn seizures - Plan Plan: continue ivf for hydration monitor h/h continue ivabx dc planning in am d/w dr. stauffer
[2016-09-05] MEDS: Levofloxacin 500mg/100mL 500 MG/100 ML BAG IV SCH (23:56)
[2016-09-06] MEDS: Levetiracetam 500 mg/5mL 5mL UDC GT SCH ×2 (09:21→17:24)
[2016-09-06] MEDS: POLYETHYLENE GLYCOL 3350 17 GM PACK GT SCH (09:21)
[2016-09-06] MEDS: Ferrous Sulfate 300 MG/5 ML UDC GT SCH ×2 (09:23→17:24)
[2016-09-06] MEDS: carBAMazepine 200 mg/10 mL UDC GT SCH ×2 (09:23→14:46)
[2016-09-06] MEDS: Potassium Chloride Elixir 20 mEq /15 mL UDC GT SCH (09:23)
[2016-09-06] MEDS: Multivitamin w/ Minerals Tab GT SCH (09:26)
[2016-09-06] MEDS: Benztropine 1 MG TAB GT SCH ×2 (09:27→17:24)
--- NOTE | 2016-09-06 12:55 | Internal Medicine Prog Note ---
Internal Medicine Subjective - Subjective Service Date: 09/06/16 (DC SUMMARY [id number]) Internal Medicine Objective - Results Result Diagrams: 09/05/16 06:51 09/05/16 06:51 Recent Labs: Laboratory Last Values WBC 11.2 Th/cmm (4.8-10.8) H 09/05/16 06:51 RBC 4.18 Mil/cmm (3.80-5.10) 09/05/16 06:51 Hgb 12.5 gm/dL (11.7-15.5) 09/05/16 06:51 Hct 36.3 % (35.0-45.0) 09/05/16 06:51 MCV 86.9 fl (81-100) 09/05/16 06:51 MCH 29.8 pg (27.0-31.0) 09/05/16 06:51 MCHC Differential 34.3 pg (28.0-36.0) 09/05/16 06:51 RDW 12.3 % (11.5-20.0) 09/05/16 06:51 Plt Count 243 Th/cmm (150-400) 09/05/16 06:51 MPV 8.6 fl 09/05/16 06:51 Neutrophils % 73.1 % (40.0-80.0) 09/05/16 06:51 Band Neutrophils % 3 % (0-10) 09/04/16 06:50 Lymphocytes % 12.8 % (20.0-50.0) L 09/05/16 06:51 Monocytes % 10.6 % (2.0-10.0) H 09/05/16 06:51 Eosinophils % 3.5 % (0.0-5.0) 09/05/16 06:51 Basophils % 0.0 % (0.0-2.0) 09/05/16 06:51 Neutrophils (Manual) 76 % (40-80) 09/04/16 06:50 Lymphocytes 4 % (20-50) L 09/04/16 06:50 Monocytes 11 % (2-10) H 09/04/16 06:50 Eosinophils 6 % (0-5) H 09/04/16 06:50 Platelet Estimate ADEQUATE (NORMAL) 09/04/16 06:50 Platelet Morphology NORMAL (NORMAL) 09/04/16 06:50 RBC Morph Micro Appear NORMAL (NORMAL) 09/04/16 06:50 PT 11.0 SECONDS (9.5-11.5) 09/04/16 06:50 INR 1.10 (0.5-1.4) 09/04/16 06:50 PTT (Actin FS) 26.3 SECONDS (26.0-38.0) 09/04/16 06:50 Sodium 130 mEq/L (136-145) L 09/05/16 06:51 Potassium 3.8 mEq/L (3.5-5.1) 09/05/16 06:51 Chloride 101 mEq/L (98-107) 09/05/16 06:51 Carbon Dioxide 21.4 mEq/L (21.0-31.0) 09/05/16 06:51 Anion Gap 11.4 (7.0-16.0) 09/05/16 06:51 BUN 14 mg/dL (7-25) 09/05/16 06:51 Creatinine 0.5 mg/dL (0.6-1.2) L 09/05/16 06:51 Est GFR ( Amer) > 60.0 ml/min 09/05/16 06:51 Est GFR (Non-Af Amer) > 60.0 ml/min 09/05/16 06:51 BUN/Creatinine Ratio 28.0 09/05/16 06:51 Glucose 118 mg/dL (70-105) H 09/05/16 06:51 Whole Bld Lactic Acid 1.00 mmol/L (0.60-2.00) 09/04/16 06:50 Calcium 8.8 mg/dL (8.6-10.3) 09/05/16 06:51 Magnesium 2.2 mg/dL (1.9-2.7) 09/04/16 06:50 Total Bilirubin 0.3 mg/dL (0.3-1.0) 09/03/16 17:15 AST 19 U/L (13-39) 09/03/16 17:15 ALT 26 U/L (7-52) 09/03/16 17:15 Alkaline Phosphatase 94 U/L (34-104) 09/03/16 17:15 Ammonia 58 umol/L (16-53) H 09/04/16 06:50 B-Natriuretic Peptide 8.6 pg/mL (5.0-100.0) 09/04/16 06:50 Total Protein 8.6 gm/dL (6.0-8.3) H 09/03/16 17:15 Albumin 4.2 gm/dL (3.7-5.3) 09/03/16 17:15 Globulin 4.4 gm/dL 09/03/16 17:15 Albumin/Globulin Ratio 1.0 (1.0-1.8) 09/03/16 17:15 Vitamin B12 956 pg/mL (211-946) H 09/04/16 06:50 Folic Acid >20.0 ng/mL (>3.0) 09/04/16 06:50 TSH 2.05 uIU/ml (0.34-5.60) 09/04/16 06:50 Urine Source CATH 09/04/16 17:40 Urine Color YELLOW 09/04/16 17:40 Urine Clarity CLEAR (CLEAR) 09/04/16 17:40 Urine pH 7.0 09/04/16 17:40 Ur Specific [place] 1.025 (1.005-1.030) 09/04/16 17:40 Urine Protein 30 mg/dL (NEGATIVE) H 09/04/16 17:40 Urine Glucose (UA) NEGATIVE mg/dL (NEGATIVE) 09/04/16 17:40 Urine Ketones NEGATIVE mg/dL (NEGATIVE) 09/04/16 17:40 Urine Blood TRACE (NEGATIVE) 09/04/16 17:40 Urine Nitrate NEGATIVE (NEGATIVE) 09/04/16 17:40 Urine Bilirubin NEGATIVE (NEGATIVE) 09/04/16 17:40 Urine Urobilinogen 0.2 E.U./dL (0.2 - 1.0) 09/04/16 17:40 Ur Leukocyte Esterase NEGATIVE (NEGATIVE) 09/04/16 17:40 Urine RBC 2-5 /hpf (0-5) 09/04/16 17:40 Urine WBC NONE SEEN /hpf (0-5) 09/04/16 17:40 Ur Epithelial Cells NONE SEEN /lpf (FEW) 09/04/16 17:40 Urine Bacteria NONE SEEN /hpf (NONE SEEN) 09/04/16 17:40 Carbamazepine 4.5 ug/ml (4.0-12.0) 09/03/16 17:15 - Physical Exam Vitals and I&O: Vital Signs Temp 98.1 F 09/06/16 08:00 Pulse 94 09/06/16 09:24 Resp 18 09/06/16 08:00 BP 143/83 09/06/16 09:24 Pulse Ox 98 09/06/16 08:00 Intake & Output 09/05/16 09/06/16 09/06/16 18:59 06:59 18:59 Intake Total 1600 Balance 1600 Intake: Intake, IV Amount 1000 D5-0.45NS 1,000 ml @ 70 1000 mls/hr IV .[id number] [facility] Rx #:[id number] Tube Feeding 600 Other: # Voids 4 # Bowel Movements 2 Stool Characteristics Soft Active Medications: Current Medications Acetaminophen (Tylenol) 650 mg GT Q4H PRN PRN Reason: Pain or Fever >101 Stop: 11/02/16 22:52 Last Admin: 09/05/16 21:32 Dose: 650 mg Albuterol Sulfate (Albuterol 2.5mg/3ml Neb Ud) 2.5 mg HHN Q4H PRN PRN Reason: Shortness of Breath Stop: 11/03/16 07:34 Benztropine Mesylate (Cogentin) 1 mg GT BID [facility] Stop: 11/03/16 08:59 Last Admin: 09/06/16 09:27 Dose: 1 mg Bisacodyl (Dulcolax 10 Mg Supp) 10 mg RC DAILY PRN PRN Reason: Constipation Stop: 11/02/16 23:31 Calcium Carbonate (Tums) 500 mg GT BID [facility] Stop: 11/03/16 08:59 Last Admin: 09/06/16 09:24 Dose: 500 mg Carbamazepine (Tegretol) 200 mg GT TID [facility] PRN Reason: Protocol Stop: 11/03/16 08:59 Last Admin: 09/06/16 09:23 Dose: 200 mg Cholecalciferol (Vitamin D3) 1,000 iu GT DAILY [facility] Stop: 11/03/16 08:59 Last Admin: 09/06/16 09:24 Dose: 1,000 iu Ferrous Sulfate (Iron) 450 mg GT BID [facility] Stop: 11/03/16 08:59 Last Admin: 09/06/16 09:23 Dose: 450 mg Glycopyrrolate (Robinul) 2 mg GT DAILY [facility] Stop: 11/03/16 08:59 Last Admin: 09/06/16 09:27 Dose: 2 mg Ipratropium [place] (Atrovent Neb 0.5mg/2.5ml) 0.5 mg HHN Q3H PRN PRN Reason: Shortness of Breath Stop: 11/03/16 07:34 Levetiracetam (Keppra) 1,000 mg GT BID [facility] Stop: 11/03/16 08:59 Last Admin: 09/06/16 09:21 Dose: 1,000 mg Loperamide HCl (Imodium 1mg/5ml Suspension) 3 mg GT Q6H PRN PRN Reason: Diarrhea Stop: 11/02/16 23:28 Metoprolol Tartrate (Lopressor) 25 mg GT DAILY [facility] Stop: 11/03/16 08:59 Last Admin: 09/06/16 09:24 Dose: 25 mg Polyethylene Glycol (Miralax) 17 gm GT DAILY [facility] Stop: 11/03/16 08:59 Last Admin: 09/06/16 09:21 Dose: 17 gm Potassium Chloride (Potassium Chloride Elixir) 10 meq GT DAILY [facility] Stop: 11/03/16 08:59 Last Admin: 09/06/16 09:23 Dose: 10 meq Sodium Phosphate (Fleet Enema) 135 ml RC DAILY PRN PRN Reason: Constipation Stop: 11/02/16 22:52 - Procedures Procedures: Procedures Procedure Code Date INSERT INDWELLING CATH 57.94 12/31/09 INSERT PICC CATH [id number] 05/18/14 VENOUS CATHETERIZATION NEC 38.93 05/18/14 Internal Medicine Assmt/Plan - Assessment Assessment: Upper Gi Bleed- h/h improving Gtube malfunction- replaced at bedside by Dr. Montenegro fever possible sepsis spastic quadriplegia htn seizures
--- NOTE | 2016-09-06 20:50 | Discharge Summary ---
FINAL DIAGNOSES: 1. G-tube malfunction. 2. Fever, possible sepsis, improved. 3. Hypertension. 4. Spastic quadriplegia. 5. Seizures. HISTORY OF PRESENT ILLNESS: This is a 41-year-old female who is a resident of [facility] who is brought here to [facility] for G-tube malfunction, also surrounding the G-tube site noted with redness. Also per nursing staff at [facility], the patient was noted with blood-tinged cough. The patient had no fevers. For this reason, the patient was admitted. PHYSICAL EXAMINATION: GENERAL: The patient is well developed, well nourished, in no acute distress. VITAL SIGNS: Stable. HEENT: Normocephalic and atraumatic. NECK: Supple. No mass. LUNGS: Clear bilaterally upon auscultation. HEART: Regular rhythm. No murmurs or gallops. SKIN: Intact, warm to touch. ABDOMEN: Soft, nontender, and nondistended. Positive bowel sounds in all 4 quadrants. HOSPITAL COURSE: During the hospital stay, the patient was admitted to the med/surg unit. The patient had a chest x-ray done and the impression is mild chronic lung changes with no focal consolidation identified. The patient also had a consultation with Dr. Montenegro. His plan of care for this patient was to replace G-tube at bedside. Dr. Montenegro replaced the G-tube at bedside ____ size 24, and the patient tolerated the procedure well. The patient was also being treated with IV antibiotics of Levaquin. The patient was on IV fluids for hydration. The patient was tolerating G-tube feedings well. H and H were stable. The patient did not have to have any blood transfusions. For this reason, the patient is stable for discharge. CONDITION UPON DISCHARGE: Fair. DISPOSITION: The patient is going back to [facility]. JOB# [id number]
== END 2016-09-06 20:10 | disposition short-term general hospital (02) | DRG 871 ==
LOC: ER 16:06 → MSI 18:23
PROVIDERS: ADMIT Internal Medicine; ATTEND Internal Medicine
PROC: 0D20XUZ Change Feeding Device in Upper Intestinal Tract, External Approach (ICD-10-PCS; principal; 2016-09-06)
DX: A41.9 Sepsis, unspecified organism (principal); G80.0 Spastic quadriplegic cerebral palsy; K94.23 Gastrostomy malfunction; K92.2 Gastrointestinal hemorrhage, unspecified; I10 Essential (primary) hypertension; G40.909 Epilepsy, unspecified, not intractable, without status epilepticus; F79 Unspecified intellectual disabilities; K21.9 Gastro-esophageal reflux disease without esophagitis; Y92.89 Other specified places as the place of occurrence of the external cause; Y83.3 Surgical operation with formation of external stoma as the cause of abnormal reaction of the patient, or of later complication, without mention of misadventure at the time of the procedure; R13.10 Dysphagia, unspecified; Z88.1 Allergy status to other antibiotic agents; Z88.8 Allergy status to other drugs, medicaments and biological substances; Z88.7 Allergy status to serum and vaccine
CPT/HCPCS: 36415-UA; 71010-TC; 80048-TC; 80053-TC; 80156-TC; 81001-TC; 82140-TC; 82607-90; 82746-90; 83605; 83735-TC; 83880-TC; 84443-TC; 85007-TC; 85025-TC; 85027-TC; 85610-TC; C9113; J1956; J2060; J2405; Z7610

== ENCOUNTER 2016-10-11 13:46 | Inpatient (IN) | payer MEDICARE, MEDICAID ==
[2016-10-11] MEDS ORDERED: Sodium Chloride 0.45% 500 ML IV ONE (14:07)
--- NOTE | 2016-10-11 14:44 | ED Physician Chart ---
Chief Complaint/HPI - Patient Information Date Seen:: 10/11/16 Time Seen:: 14:19 Chief Complaint:: VOMITING History of Present Illness:: THIS IS A SEVERE 41 YO CEREBRAL PALSY FEMALE WITH THE SUDDEN ONSET OF COFFEE GROUND COLORED VOMITING THAT STARTED TO DAY. SHE HAS A G-TUBE. 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 Allergies:: Allergies Allergy/AdvReac Type Severity Reaction Status Date / Time ceftriaxone Allergy Verified 06/14/16 04:59 tetanus toxoid, adsorbed Allergy Verified 06/14/16 04:59 valproic acid Allergy Verified 06/14/16 04:59 Historian:: Medical Records Review:: Nurse's Note Reviewed Review of Systems - Review of Systems General/Constitutional: No fever, No chills, No weight loss, No weakness, No diaphoresis, No edema, No loss of appetite, Other (THIS PATIENT IS UNABLE TO GIVE A REVIEW OF SYSTEMS.) Skin: No skin lesions, No rash, No bruising Head: No headache, No light-headedness Eyes: No loss of vision, No pain, No diplopia ENT: No earache, No nasal drainage, No sore throat, No tinnitus Neck: No neck pain, No swelling, No thyromegaly, No stiffness, No mass noted Cardio Vascular: No chest pain, No palpitations, No PND, No orthopnea, No edema Pulmonary: No SOB, No cough, No sputum, No wheezing GI: No nausea, No vomiting, No diarrhea, No pain, No melena, No hematochezia, No constipation, No hematemesis G/U: No dysuria, No frequency, No hematuria Musculoskeletal: No bone or joint pain, No back pain, No muscle pain Endocrine: No polyuria, No polydipsia Psychiatric: No prior psych history, No depression, No anxiety, No suicidal ideation Hematopoietic: No bruising, No lymphadenopathy Allergic/Immuno: No urticaria, No angioedema Neurological: No syncope, No focal symptoms, No weakness, No paresthesia, No headache, No seizure, No dizziness, No confusion, No vertigo Past Medical History - Past Medical History Obtainable: Yes Past Medical History: PUD/GERD, Dementia Family History: None Social History: Non Smoker, No Alcohol, No Drug Use Surgical History: PEG/GTube Psychiatricy History: Dementia Family Medical History - Family Member Mother History Unknown: Yes Ethnicity: Unknown Physical Exam - Physical Examination General/Constitutional: Awake, Well-developed, well-nourished, Alert, No distress, GCS 15, Non-toxic appearing, Ambulatory Other Gen/Cons comments:: THIS IS AN SEVERE CP WITH MILD CHOREA AND SEVERE MUSCLE WASTING OF ALL FOUR EXTREMITIES. SHE DISORIENTED TIMES FOUR. Head: Atraumatic Eyes: Lids, conjuctiva normal, PERRL, EOMI Other Eyes comments:: THIS PATIENT IS BLIND Skin: Nl inspection, No rash, No skin lesions, No ecchymosis, Well hydrated, No lymphadenopathy ENMT: External ears, nose nl, Nasal exam nl, Lips, teeth, gums nl Neck: Nontender, Full ROM w/o pain, No JVD, No nuchal rigidity, No bruit, No mass, No stridor Respiratory: Nl effort/Exclusion, Clear to Auscultation, No Wheeze/Rhonchi/Rales Cardio Vascular: RRR, No murmur, gallop, rubs, NL S1 S2 GI: No tenderness/rebounding/guarding, No organomegaly, No hernia, Normal BS's, Nondistended, No mass/bruits, No McBurney tenderness Other GI comments:: G-TUBE NOTED IN PLACE AND OPERATING NORMALLY. : No CVA tenderness Extremities: No tenderness or effusion, Full ROM, normal strength in all extremities, No edema, Normal digits & nails Neuro/Psych: DTR's symmetric, Normal sensory exam, Normal motor strength Other Neuro/Psych comments:: DISORIENTED AND WITH PARALYSIS Misc: normal gait, Normal back, No paraspinal tenderness Labs/Radiology/EKG Results - Lab Results Results: Abnormal Lab Results 10/11/16 10/11/16 10/11/16 14:40 14:40 14:40 WBC 19.3 H RBC 4.88 Hgb 14.3 Hct 41.6 D MCV 85.3 MCH 29.3 MCHC Differential 34.4 RDW 12.3 Plt Count 326 D MPV 8.9 Band Neutrophils % 10 Neutrophils (Manual) 81 H Lymphocytes 7 L Monocytes 2 Eosinophils 0 Basophils 0 Platelet Estimate ADEQUATE Platelet Morphology NORMAL RBC Morph Micro Appear NORMAL Sodium 134 L Potassium 3.5 Chloride 103 Carbon Dioxide 21.7 Anion Gap 12.8 BUN 23 Creatinine 0.6 Est GFR ( Amer) > 60.0 Est GFR (Non-Af Amer) > 60.0 BUN/Creatinine Ratio 38.3 Glucose 135 H Calcium 9.5 Total Bilirubin 0.3 AST 19 ALT 15 Alkaline Phosphatase 92 Troponin I Total Protein 8.2 Albumin 4.0 Globulin 4.2 Albumin/Globulin Ratio 1.0 Triglycerides 86 Cholesterol 136 LDL Cholesterol Direct 64 L HDL Cholesterol 59 TSH Carbamazepine 10/11/16 10/11/16 10/11/16 14:40 14:40 14:40 WBC RBC Hgb Hct MCV MCH MCHC Differential RDW Plt Count MPV Band Neutrophils % Neutrophils (Manual) Lymphocytes Monocytes Eosinophils Basophils Platelet Estimate Platelet Morphology RBC Morph Micro Appear Sodium Potassium Chloride Carbon Dioxide Anion Gap BUN Creatinine Est GFR ( Amer) Est GFR (Non-Af Amer) BUN/Creatinine Ratio Glucose Calcium Total Bilirubin AST ALT Alkaline Phosphatase Troponin I < 0.01 L Total Protein Albumin Globulin Albumin/Globulin Ratio Triglycerides Cholesterol LDL Cholesterol Direct HDL Cholesterol TSH 1.07 Carbamazepine 7.3 - Radiology Results Results: CHEST X-RAY = NAD ED Septic Shock - . Is Septic Shock (SBP<90, OR Lactate>4 mmol\L) present?: No Reassessment (Disposition) - Reassessment Reassessment Condition:: Unchanged - Diagnosis Diagnosis:: UPPER GI BLEEDING ELEVATED WHITE COUNT CEREBRAL PALSY - Patient Disposition Admitting Medical Physician:: Blayne Long Condition at Disposition:: Unchanged ED Discharge Plan - Patient Disposition Admit/Discharge/Transfer: Acute Care w/in this hosp Condition at Disposition: Unchanged
[2016-10-11 14:50] LABS: HEMOGLOBIN 14.3 gm/dL (11.7-15.5); MEAN CELL VOLUME 85.3 fl (81-100); MEAN CORPUSCULAR HEMOGLOBIN 29.3 pg (27.0-31.0); MEAN CORPUSCULAR HGB CONC 34.4 pg (28.0-36.0); MEAN PLATELET VOLUME 8.9 fl; RED BLOOD COUNT 4.88 Mil/cmm (3.80-5.10); RED CELL DISTRIBUTION WIDTH 12.3 % (11.5-20.0)
[2016-10-11 15:02] LABS: HEMATOCRIT 41.6 % (35.0-45.0); PLATELET COUNT 326 Th/cmm (150-400); WHITE BLOOD COUNT 19.3 Th/cmm (4.8-10.8)
[2016-10-11 15:05] VITALS: BP 114/68
[2016-10-11 15:12] LABS: ALKALINE PHOSPHATASE 92 U/L (34-104); ANION GAP 12.8 (7.0-16.0); BILIRUBIN,TOTAL 0.3 mg/dL (0.3-1.0); BUN - UREA NITROGEN 23 mg/dL (7-25); BUN/CREATININE RATIO 38.3; CALCIUM SERUM 9.5 mg/dL (8.6-10.3); CARBON DIOXIDE 21.7 mEq/L (21.0-31.0); CHLORIDE 103 mEq/L (98-107); CHOLESTEROL 136 mg/dL (<200); CREATININE - SERUM 0.6 mg/dL (0.6-1.2); GLUCOSE 135 mg/dL (70-105); POTASSIUM SERUM 3.5 mEq/L (3.5-5.1); SGOT 19 U/L (13-39); SGPT/ALT 15 U/L (7-52); SODIUM SERUM 134 mEq/L (136-145); TRIGLYCERIDES 86 mg/dL (<150)
--- NOTE | 2016-10-11 15:27 | Diagnostic Imaging Report ---
Portable chest x-ray History: Shortness of breath Allowing for portable technique the heart size is normal. No focal pulmonary parenchymal processes. No hilar or mediastinal abnormalities. Faint calcification noted in the soft tissues adjacent to the lateral aspect of the left humeral head consistent with calcific tendinitis. Impression: No acute abnormalities.
[2016-10-11] MEDS ORDERED: Azithromycin 500 MG in Sodium Chloride 0.9% 250 ML IV ONE (16:16)
[2016-10-11 17:58] LABS: BAND NEUTROPHILE 10 % (0-10); NEUTROPHILS 81 % (40-80); TOTAL CELLS COUNTED 100
[2016-10-11 17:59] LABS: BASOPHIL 0 % (0-3); EOSINOPHIL 0 % (0-5); PLATELET ESTIMATE ADEQUATE (NORMAL); PLATELET MORPHOLOGY NORMAL (NORMAL)
[2016-10-11] MEDS ORDERED: Albuterol Nebulizer 2.5mg/3mL HHN PRN (20:21)
[2016-10-11] MEDS ORDERED: Fleet Enema 135 mL RC PRN (20:21)
[2016-10-11] MEDS ORDERED: Ipratropium Neb 0.5 mg/2.5 mL UD HHN PRN (20:21)
[2016-10-12] MEDS: D5-0.45NS 1,000 ML IV SCH ×2 (00:46→15:48)
[2016-10-12] MEDS: Levofloxacin 500mg/100mL 500 MG/100 ML BAG IV SCH ×2 (01:00→22:50)
[2016-10-12 07:27] LABS: HEMOGLOBIN 12.7 gm/dL (11.7-15.5); MEAN CELL VOLUME 84.5 fl (81-100); MEAN CORPUSCULAR HGB CONC 34.3 pg (28.0-36.0); MEAN PLATELET VOLUME 9.8 fl; PLATELET COUNT 277 Th/cmm (150-400); RED BLOOD COUNT 4.37 Mil/cmm (3.80-5.10); RED CELL DISTRIBUTION WIDTH 11.9 % (11.5-20.0)
[2016-10-12 07:31] LABS: HEMATOCRIT 36.9 % (35.0-45.0); WHITE BLOOD COUNT 20.6 Th/cmm (4.8-10.8)
[2016-10-12 07:43] LABS: ANION GAP 9.7 (7.0-16.0); BUN - UREA NITROGEN 25 mg/dL (7-25); CALCIUM SERUM 9.1 mg/dL (8.6-10.3); CARBON DIOXIDE 27.6 mEq/L (21.0-31.0); CHLORIDE 103 mEq/L (98-107); CREATININE - SERUM 0.5 mg/dL (0.6-1.2); GLUCOSE 146 mg/dL (70-105); MAGNESIUM 2.1 mg/dL (1.9-2.7); POTASSIUM SERUM 3.3 mEq/L (3.5-5.1); SODIUM SERUM 137 mEq/L (136-145)
[2016-10-12] MEDS: carBAMazepine 200 mg/10 mL UDC GT SCH ×3 (10:07→22:46)
[2016-10-12] MEDS: Ascorbic Acid 500 mg/5 mL UDC GT SCH (10:07)
[2016-10-12] MEDS: Benztropine 1 MG TAB GT SCH ×2 (10:08→17:09)
[2016-10-12] MEDS: Levetiracetam 500 mg/5mL 5mL UDC GT SCH ×2 (10:08→17:09)
[2016-10-12] MEDS: Multivitamin w/ Minerals Tab GT SCH (10:09)
[2016-10-12] MEDS: POLYETHYLENE GLYCOL 3350 17 GM PACK GT SCH (10:09)
[2016-10-12] MEDS ORDERED: Potassium Chloride Elixir 20 mEq /15 mL UDC GT ONE (10:21)
[2016-10-12] MEDS ORDERED: KCL 20mEq/100mL Premix 40 MEQ/200 ML PIGGYBACK IV ONE (12:00)
[2016-10-12 12:19] LABS: BAND NEUTROPHILE 1 % (0-10); NEUTROPHILS 81 % (40-80); PLATELET ESTIMATE ADEQUATE (NORMAL); PLATELET MORPHOLOGY NORMAL (NORMAL); TOTAL CELLS COUNTED 100
--- NOTE | 2016-10-12 15:27 | Internal Medicine Prog Note ---
Internal Medicine Subjective - Subjective Service Date: 10/12/16 ([facility] dictated [id number]) Internal Medicine Objective - Results Result Diagrams: 10/12/16 06:39 10/12/16 06:39 Recent Labs: Laboratory Last Values WBC 20.6 Th/cmm (4.8-10.8) H* 10/12/16 06:39 RBC 4.37 Mil/cmm (3.80-5.10) 10/12/16 06:39 Hgb 12.7 gm/dL (11.7-15.5) 10/12/16 06:39 Hct 36.9 % (35.0-45.0) D 10/12/16 06:39 MCV 84.5 fl (81-100) 10/12/16 06:39 MCH 29.0 pg (27.0-31.0) 10/12/16 06:39 MCHC Differential 34.3 pg (28.0-36.0) 10/12/16 06:39 RDW 11.9 % (11.5-20.0) 10/12/16 06:39 Plt Count 277 Th/cmm (150-400) 10/12/16 06:39 MPV 9.8 fl 10/12/16 06:39 Band Neutrophils % 1 % (0-10) 10/12/16 06:39 Neutrophils (Manual) 81 % (40-80) H 10/12/16 06:39 Lymphocytes 9 % (20-50) L 10/12/16 06:39 Monocytes 8 % (2-10) 10/12/16 06:39 Eosinophils 0 % (0-5) 10/11/16 14:40 Basophils 0 % (0-3) 10/11/16 14:40 Atypical Lymphocytes 1 % 10/12/16 06:39 Platelet Estimate ADEQUATE (NORMAL) 10/12/16 06:39 Platelet Morphology NORMAL (NORMAL) 10/12/16 06:39 RBC Morph Micro Appear NORMAL (NORMAL) 10/12/16 06:39 Sodium 137 mEq/L (136-145) 10/12/16 06:39 Potassium 3.3 mEq/L (3.5-5.1) L 10/12/16 06:39 Chloride 103 mEq/L (98-107) 10/12/16 06:39 Carbon Dioxide 27.6 mEq/L (21.0-31.0) 10/12/16 06:39 Anion Gap 9.7 (7.0-16.0) 10/12/16 06:39 BUN 25 mg/dL (7-25) 10/12/16 06:39 Creatinine 0.5 mg/dL (0.6-1.2) L 10/12/16 06:39 Est GFR ( Amer) > 60.0 ml/min (>90) 10/12/16 06:39 Est GFR (Non-Af Amer) > 60.0 ml/min 10/12/16 06:39 BUN/Creatinine Ratio 50.0 10/12/16 06:39 Glucose 146 mg/dL (70-105) H 10/12/16 06:39 Calcium 9.1 mg/dL (8.6-10.3) 10/12/16 06:39 Magnesium 2.1 mg/dL (1.9-2.7) 10/12/16 06:39 Total Bilirubin 0.3 mg/dL (0.3-1.0) 10/11/16 14:40 AST 19 U/L (13-39) 10/11/16 14:40 ALT 15 U/L (7-52) 10/11/16 14:40 Alkaline Phosphatase 92 U/L (34-104) 10/11/16 14:40 Troponin I < 0.01 ng/mL (0.01-0.05) L 10/11/16 14:40 Total Protein 8.2 gm/dL (6.0-8.3) 10/11/16 14:40 Albumin 4.0 gm/dL (3.7-5.3) 10/11/16 14:40 Globulin 4.2 gm/dL 10/11/16 14:40 Albumin/Globulin Ratio 1.0 (1.0-1.8) 10/11/16 14:40 Triglycerides 86 mg/dL (<150) 10/11/16 14:40 Cholesterol 136 mg/dL (<200) 10/11/16 14:40 LDL Cholesterol Direct 64 mg/dL (75-193) L 10/11/16 14:40 HDL Cholesterol 59 mg/dL (23-92) 10/11/16 14:40 TSH 1.07 uIU/ml (0.34-5.60) 10/11/16 14:40 Carbamazepine 7.3 ug/ml (4.0-12.0) 10/11/16 14:40 RPR NONREACTIVE (NONREACTIVE) 10/11/16 14:40 - Physical Exam Vitals and I&O: Vital Signs Temp 98.7 F 10/12/16 08:00 Pulse 61 10/12/16 08:00 Resp 17 10/12/16 08:00 BP 97/53 10/12/16 08:00 Pulse Ox 93 10/12/16 08:00 Intake & Output 10/11/16 10/12/16 10/12/16 18:59 06:59 18:59 Intake Total 100 Balance 100 Intake: Intake, IV Amount 100 Levofloxacin 500mg/100mL 100 500 mg In 100 ml @ 100 mls/hr IV Q24HR [facility] Rx#: [id number] Other: # Voids 2 # Bowel Movements 0 Active Medications: Current Medications Acetaminophen (Tylenol 650mg/20.3ml Suspension) 650 mg PO Q4H PRN PRN Reason: Pain or Fever >101 Stop: 12/10/16 20:41 Ascorbic Acid (Vitamin C) 500 mg GT DAILY [facility] Stop: 12/11/16 08:59 Last Admin: 10/12/16 10:07 Dose: Not Given Benztropine Mesylate (Cogentin) 1 mg GT BID [facility] Stop: 12/11/16 08:59 Last Admin: 10/12/16 10:08 Dose: Not Given Bisacodyl (Dulcolax 10 Mg Supp) 10 mg RC DAILY PRN PRN Reason: Constipation Stop: 12/10/16 20:48 Carbamazepine (Tegretol) 200 mg GT TID JUANI PRN Reason: Protocol Stop: 12/10/16 20:59 Last Admin: 10/12/16 10:07 Dose: Not Given Cholecalciferol (Vitamin D3) 1,000 iu GT DAILY [facility] Stop: 12/11/16 08:59 Last Admin: 10/12/16 10:08 Dose: Not Given Dextrose/Sodium Chloride (D5-0.45ns) 1,000 mls @ 80 mls/hr IV .[id number] [facility] Stop: 12/10/16 20:29 Last Admin: 10/12/16 00:46 Dose: 80 mls/hr Levofloxacin (Levaquin Pb) 500 mg in 100 mls @ 100 mls/hr IV Q24HR JU[facility] Stop: 12/10/16 21:59 Last Infusion: 10/12/16 02:00 Dose: Infused Potassium Chloride (Potassium Chloride) 40 meq in 200 mls @ 50 mls/hr IV 1200 ONE Stop: 10/12/16 15:59 Last Admin: 10/12/16 12:06 Dose: 50 mls/hr Ibuprofen (Motrin) 400 mg GT Q6H PRN PRN Reason: Pain (Mild) Stop: 12/10/16 20:46 Levetiracetam (Keppra) 1,000 mg GT BID JU[facility] Stop: 12/11/16 08:59 Last Admin: 10/12/16 10:08 Dose: Not Given Loperamide HCl (Imodium 1mg/5ml Suspension) 3 mg GT Q6H PRN PRN Reason: Diarrhea Stop: 12/10/16 20:45 Metoprolol Tartrate (Lopressor) 25 mg GT DAILY [facility] Stop: 12/11/16 08:59 Last Admin: 10/12/16 10:08 Dose: Not Given Miscellaneous (Ipratropium [place] [Atrovent Hfa]) 1 puff INH Q3H PRN PRN Reason: Shortness of Breath Miscellaneous (Calcium Carbonate [Calcium Carbonate]) 5 ml GT BID [facility] Stop: 12/11/16 08:59 Miscellaneous (Albuterol [Proventil]) 0.09 mg IH Q4H PRN PRN Reason: Shortness of Breath Pantoprazole Sodium (Protonix) 40 mg IVP BID [facility] Stop: 12/11/16 08:59 Last Admin: 10/12/16 10:13 Dose: 40 mg Polyethylene Glycol (Miralax) 17 gm GT DAILY [facility] Stop: 12/11/16 08:59 Last Admin: 10/12/16 10:09 Dose: Not Given Sodium Phosphate (Fleet Enema) 135 ml RC DAILY PRN PRN Reason: Constipation Stop: 12/10/16 20:20 - Procedures Procedures: Procedures Procedure Code Date CHANGE FEEDING DEVICE IN UP INTEST TRACT, DIGITAL FORENSIC EXAMINER APPROACH [id number] 09/03/16 INSERT INDWELLING CATH 57.94 12/31/09 INSERT PICC CATH 82106 05/18/14 VENOUS CATHETERIZATION NEC 38.93 05/18/14 Internal Medicine Assmt/Plan - Assessment Assessment: R/O GI BLEED INTRACTABLE VOMITING LEUKOCYTOSIS SPASTIC QUADRIPLEGIA SEIZURES
--- NOTE | 2016-10-12 16:13 | Admit Criteria Form ---
Admit Criteria Forms - Admit Criteria Diagnosis: GASTROINTESTINAL BLEEDING, UPPER Clinical Indications for Admission to Inpatient Care ( Place 'X' for any and all applicable criteria): Admission is indicated for ANY ONE of the following(1)(2)(3)(4)(5)(6): [ ]I. Active bleeding (eg, fresh voluminous blood in emesis or nasogastric aspirate) [ ]II. Associated conditions requiring hospitalization (eg, perforation, obstruction from ulcer) [X ]III. Inpatient admission required rather than observation care (Also use Gastrointestinal Bleeding, Upper: Observation Care as appropriate) because of ANY ONE of the following: [ ]a) Hemodynamic instability that is severe or persistent [ ]b) Anemia requiring inpatient admission as indicated by ALL of the following: [ ]1) Presence of significant clinical finding indicated by ANY ONE of the following: [ ]A. Tachycardia for age [ ]B. Orthostatic vital sign changes [ ]C. Cognitive impairment [ ]D. Heart failure [ ]E. Chest pain [ ]F. Exertional dyspnea [ ]G. Other findings suggesting inadequate perfusion (eg, peripheral or myocardial ischemia, end organ dysfunction) [ ]2) Initial (eg, emergency department, observation care) treatment with transfusion or volume replacement is judged inappropriate (due to severity of the finding) or has been ineffective [ ]c) Severe pain requiring acute inpatient management [ ]d) High-risk low platelet count [ ]e) IV fluid to replace significant ongoing losses (greater than 3 L/m2 per day) [ ]f) Immediate inpatient surgery [ X]g) Other condition, treatment or monitoring requiring inpatient admission [ ]IV. Severe liver disease (eg, cirrhosis) [ ]V. Significant active comorbid disease [ ]. Anticoagulation therapy [ ]VII. High-risk endoscopic features (arterial bleeding, adherent clot, nonbleeding visible vessel, varices, flat red spots, ulcer size greater than 2 cm, or portal hypertensive gastropathy) [ ]VIII. Previous aortic graft placement or known aortic aneurysm [ ]IX. Coagulopathy [ ]X. Syncope Extended stay beyond goal length of stay may be needed for(1)(2): [ ]a) Emergency surgery [ ]b) Varices [ ]c) Coagulation abnormalities [ ]d) Recurrent, obscure, or persistent bleeding or continued Hemodynamic instability [ ]e) Associated conditions requiring surgery (eg, perforated gastric ulcer, gastric outlet obstruction) [ ]f) Active comorbidities (eg, renal insufficiency, heart failure, pre- existing liver disease) The original [facility] [employer] content created by [facility] [employer] has been revised. The portions of the content which have been revised are identified through the use of italic text or in bold, and [facility] has neither reviewed nor approved the modified material. All other unmodified content is copyright [facility] [employer]. Please see references footnoted in the original [facility] [employer] edition 2016 Admit Criteria Met?: Yes
--- NOTE | 2016-10-12 18:36 | History & Physical ---
CHIEF COMPLAINT: Coffee ground emesis. HISTORY OF PRESENT ILLNESS: This is a 41-year-old female who is a resident of [facility], who is brought here to [facility] for 1 day history of coffee-ground emesis. The patient currently has a gastrostomy tube. The patient was recently here on 09/03/2016 for G-tube malfunction. PAST MEDICAL HISTORY: Hypertension, GERD, seizures. MR, spastic quadriplegia, anemia. SOCIAL HISTORY: The patient resides at [facility], requiring 24-hour nursing care. PAST SURGICAL HISTORY: PEG. MEDICATIONS: Please see medication reconciliation sheet. REVIEW OF SYSTEMS: Unable to obtain. The patient is nonverbal. PHYSICAL EXAMINATION: GENERAL: The patient is well developed, well nourished, in no heparin distress. VITAL SIGNS: Temperature 98.7, heart rate 61, blood pressure 197/63, respirations 17, O2 93%. HEENT: Head: Normocephalic, atraumatic. NECK: Supple. No mass. LUNGS: Clear bilaterally upon auscultation. CARDIOVASCULAR: Regular rhythm. No murmurs or gallops. SKIN: Intact, warm and dry to touch. ABDOMEN: Soft, nontender, nondistended. Positive bowel sounds in all 4 quadrants. LABORATORY DATA: WBC 20.6, H and H 12.7 and 36.9. Sodium 137, potassium 3.3, chloride 103, carbon dioxide 27.6, BUN 25, creatinine 0.5. DIAGNOSTIC DATA: The patient had a chest x-ray done, impression is no acute abnormalities. ASSESSMENT: 1. Rule out gastrointestinal bleed. 2. Intractable vomiting. 3. Leukocytosis. 4. Spastic quadriplegia. 5. Seizures. 6. Hypokalemia. PLAN: We will get a GI consultation. We will get the patient on IV fluids for hydration, as needed Zofran. Also, we will monitor the patient's H and H. We will continue to monitor the patient. JOB# [id number]
[2016-10-13 08:02] LABS: ANION GAP 10.2 (7.0-16.0); BUN - UREA NITROGEN 20 mg/dL (7-25); CALCIUM SERUM 9.2 mg/dL (8.6-10.3); CARBON DIOXIDE 23.3 mEq/L (21.0-31.0); CHLORIDE 104 mEq/L (98-107); CREATININE - SERUM 0.5 mg/dL (0.6-1.2); GLUCOSE 133 mg/dL (70-105); POTASSIUM SERUM 3.5 mEq/L (3.5-5.1); SODIUM SERUM 134 mEq/L (136-145)
[2016-10-13 08:07] LABS: HEMATOCRIT 36.2 % (35.0-45.0); HEMOGLOBIN 12.6 gm/dL (11.7-15.5); MEAN CORPUSCULAR HEMOGLOBIN 29.5 pg (27.0-31.0); MEAN CORPUSCULAR HGB CONC 34.7 pg (28.0-36.0); MEAN PLATELET VOLUME 9.8 fl; PLATELET COUNT 250 Th/cmm (150-400); RED BLOOD COUNT 4.26 Mil/cmm (3.80-5.10); RED CELL DISTRIBUTION WIDTH 12.2 % (11.5-20.0); WHITE BLOOD COUNT 17.3 Th/cmm (4.8-10.8)
[2016-10-13 08:44] LABS: NEUTROPHILS 90 % (40-80); TOTAL CELLS COUNTED 100
[2016-10-13 08:45] LABS: PLATELET ESTIMATE ADEQUATE (NORMAL); PLATELET MORPHOLOGY NORMAL (NORMAL)
[2016-10-13] MEDS: carBAMazepine 200 mg/10 mL UDC GT SCH ×4 (09:48→21:31)
[2016-10-13] MEDS: POLYETHYLENE GLYCOL 3350 17 GM PACK GT SCH (09:49)
[2016-10-13] MEDS: Levetiracetam 500 mg/5mL 5mL UDC GT SCH ×2 (09:49→19:37)
[2016-10-13] MEDS: Multivitamin w/ Minerals Tab GT SCH (09:49)
[2016-10-13] MEDS: Ascorbic Acid 500 mg/5 mL UDC GT SCH (09:49)
[2016-10-13] MEDS: Benztropine 1 MG TAB GT SCH ×2 (09:49→19:37)
[2016-10-13 10:52] LABS: INR 1.21 (0.5-1.4); PROTHROMBIN TIME (TEST) 12.1 SECONDS (9.5-11.5)
--- NOTE | 2016-10-13 12:51 | Internal Medicine Prog Note ---
Internal Medicine Subjective - Subjective Service Date: 10/13/16 (gt noted with redness) Patient seen and examined:: with staff Patient is:: awake Per staff patient is:: no adverse event Internal Medicine Objective - Results Result Diagrams: 10/13/16 06:44 10/13/16 06:44 Recent Labs: Laboratory Last Values WBC 17.3 Th/cmm (4.8-10.8) H 10/13/16 06:44 RBC 4.26 Mil/cmm (3.80-5.10) 10/13/16 06:44 Hgb 12.6 gm/dL (11.7-15.5) 10/13/16 06:44 Hct 36.2 % (35.0-45.0) 10/13/16 06:44 MCV 85.0 fl (81-100) 10/13/16 06:44 MCH 29.5 pg (27.0-31.0) 10/13/16 06:44 MCHC Differential 34.7 pg (28.0-36.0) 10/13/16 06:44 RDW 12.2 % (11.5-20.0) 10/13/16 06:44 Plt Count 250 Th/cmm (150-400) 10/13/16 06:44 MPV 9.8 fl 10/13/16 06:44 Band Neutrophils % 1 % (0-10) 10/12/16 06:39 Neutrophils (Manual) 90 % (40-80) H 10/13/16 06:44 Lymphocytes 5 % (20-50) L 10/13/16 06:44 Monocytes 5 % (2-10) 10/13/16 06:44 Eosinophils 0 % (0-5) 10/11/16 14:40 Basophils 0 % (0-3) 10/11/16 14:40 Atypical Lymphocytes 1 % 10/12/16 06:39 Platelet Estimate ADEQUATE (NORMAL) 10/13/16 06:44 Platelet Morphology NORMAL (NORMAL) 10/13/16 06:44 RBC Morph Micro Appear NORMAL (NORMAL) 10/13/16 06:44 PT 12.1 SECONDS (9.5-11.5) H 10/13/16 10:27 INR 1.21 (0.5-1.4) 10/13/16 10:27 PTT (Actin FS) 25.8 SECONDS (26.0-38.0) L 10/13/16 10:27 Sodium 134 mEq/L (136-145) L 10/13/16 06:44 Potassium 3.5 mEq/L (3.5-5.1) 10/13/16 06:44 Chloride 104 mEq/L (98-107) 10/13/16 06:44 Carbon Dioxide 23.3 mEq/L (21.0-31.0) 10/13/16 06:44 Anion Gap 10.2 (7.0-16.0) 10/13/16 06:44 BUN 20 mg/dL (7-25) 10/13/16 06:44 Creatinine 0.5 mg/dL (0.6-1.2) L 10/13/16 06:44 Est GFR ( Amer) > 60.0 ml/min (>90) 10/13/16 06:44 Est GFR (Non-Af Amer) > 60.0 ml/min 10/13/16 06:44 BUN/Creatinine Ratio 40.0 10/13/16 06:44 Glucose 133 mg/dL (70-105) H 10/13/16 06:44 Calcium 9.2 mg/dL (8.6-10.3) 10/13/16 06:44 Magnesium 2.1 mg/dL (1.9-2.7) 10/12/16 06:39 Total Bilirubin 0.3 mg/dL (0.3-1.0) 10/11/16 14:40 AST 19 U/L (13-39) 10/11/16 14:40 ALT 15 U/L (7-52) 10/11/16 14:40 Alkaline Phosphatase 92 U/L (34-104) 10/11/16 14:40 Troponin I < 0.01 ng/mL (0.01-0.05) L 10/11/16 14:40 Total Protein 8.2 gm/dL (6.0-8.3) 10/11/16 14:40 Albumin 4.0 gm/dL (3.7-5.3) 10/11/16 14:40 Globulin 4.2 gm/dL 10/11/16 14:40 Albumin/Globulin Ratio 1.0 (1.0-1.8) 10/11/16 14:40 Triglycerides 86 mg/dL (<150) 10/11/16 14:40 Cholesterol 136 mg/dL (<200) 10/11/16 14:40 LDL Cholesterol Direct 64 mg/dL (75-193) L 10/11/16 14:40 HDL Cholesterol 59 mg/dL (23-92) 10/11/16 14:40 TSH 1.07 uIU/ml (0.34-5.60) 10/11/16 14:40 Carbamazepine 7.3 ug/ml (4.0-12.0) 10/11/16 14:40 RPR NONREACTIVE (NONREACTIVE) 10/11/16 14:40 - Physical Exam Vitals and I&O: Vital Signs Temp 98.4 F 10/13/16 08:00 Pulse 53 10/13/16 08:00 Resp 16 10/13/16 08:00 BP 112/58 10/13/16 08:00 Pulse Ox 98 10/13/16 08:00 Intake & Output 10/12/16 10/13/16 10/13/16 18:59 06:59 18:59 Intake Total 1000 Balance 1000 Weight (lbs) 87 lb Intake: Intake, IV Amount 1000 D5-0.45NS 1,000 ml @ 80 1000 mls/hr IV .[id number] [facility] Rx #:[id number] Other: # Voids 4 Stool Characteristics Soft Active Medications: Current Medications Acetaminophen (Tylenol 650mg/20.3ml Suspension) 650 mg PO Q4H PRN PRN Reason: Pain or Fever >101 Stop: 12/10/16 20:41 Ascorbic Acid (Vitamin C) 500 mg GT DAILY [facility] Stop: 12/11/16 08:59 Last Admin: 10/13/16 09:49 Dose: Not Given Benztropine Mesylate (Cogentin) 1 mg GT BID [facility] Stop: 12/11/16 08:59 Last Admin: 10/13/16 09:49 Dose: Not Given Bisacodyl (Dulcolax 10 Mg Supp) 10 mg RC DAILY PRN PRN Reason: Constipation Stop: 12/10/16 20:48 Carbamazepine (Tegretol) 200 mg GT TID JUANI PRN Reason: Protocol Stop: 12/10/16 20:59 Last Admin: 10/13/16 09:48 Dose: Not Given Cholecalciferol (Vitamin D3) 1,000 iu GT DAILY [facility] Stop: 12/11/16 08:59 Last Admin: 10/13/16 09:49 Dose: Not Given Dextrose/Sodium Chloride (D5-0.45ns) 1,000 mls @ 80 mls/hr IV .[id number] [facility] Stop: 12/10/16 20:29 Last Admin: 10/12/16 15:48 Dose: 80 mls/hr Levofloxacin (Levaquin Pb) 500 mg in 100 mls @ 100 mls/hr IV Q24HR [facility] Stop: 12/10/16 21:59 Last Admin: 10/12/16 22:50 Dose: 100 mls/hr Ibuprofen (Motrin) 400 mg GT Q6H PRN PRN Reason: Pain (Mild) Stop: 12/10/16 20:46 Levetiracetam (Keppra) 1,000 mg GT BID [facility] Stop: 12/11/16 08:59 Last Admin: 10/13/16 09:49 Dose: Not Given Loperamide HCl (Imodium 1mg/5ml Suspension) 3 mg GT Q6H PRN PRN Reason: Diarrhea Stop: 12/10/16 20:45 Metoprolol Tartrate (Lopressor) 25 mg GT DAILY [facility] Stop: 12/11/16 08:59 Last Admin: 10/13/16 09:49 Dose: Not Given Miscellaneous (Ipratropium [place] [Atrovent Hfa]) 1 puff INH Q3H PRN PRN Reason: Shortness of Breath Miscellaneous (Calcium Carbonate [Calcium Carbonate]) 5 ml GT BID [facility] Stop: 12/11/16 08:59 Miscellaneous (Albuterol [Proventil]) 0.09 mg IH Q4H PRN PRN Reason: Shortness of Breath Miscellaneous (Vancomycin Iv Per Pharmacy) 1 ea MC PRN [facility] Stop: 12/12/16 00:14 Ondansetron HCl (Zofran) 4 mg IV Q6H PRN PRN Reason: Nausea / Vomiting Stop: 12/11/16 15:27 Last Admin: 10/12/16 15:57 Dose: 4 mg Pantoprazole Sodium (Protonix) 40 mg IVP BID [facility] Stop: 12/11/16 08:59 Last Admin: 10/13/16 09:49 Dose: Not Given Polyethylene Glycol (Miralax) 17 gm GT DAILY [facility] Stop: 12/11/16 08:59 Last Admin: 10/13/16 09:49 Dose: Not Given Sodium Phosphate (Fleet Enema) 135 ml RC DAILY PRN PRN Reason: Constipation Stop: 12/10/16 20:20 General: weak HEENT: NC/AT, PERRLA Lungs: CTAB Cardiovascular: RRR, Normal S1, Normal S2, without murmur Abdomen: soft non-tender, non-distended, +GT - Procedures Procedures: Procedures Procedure Code Date CHANGE FEEDING DEVICE IN UP INTEST TRACT, SHOPPER'S AIDE APPROACH [id number] 09/03/16 INSERT INDWELLING CATH 57.94 12/31/09 INSERT PICC CATH 51900 05/18/14 VENOUS CATHETERIZATION NEC 38.93 05/18/14 Internal Medicine Assmt/Plan - Assessment Assessment: R/O GI BLEED INTRACTABLE VOMITING LEUKOCYTOSIS SPASTIC QUADRIPLEGIA SEIZURES GT CELLULITIS - Plan Plan: f/u labs ivf for hydration gi f/u ivabx
[2016-10-14] MEDS: Levofloxacin 500mg/100mL 500 MG/100 ML BAG IV SCH ×2 (00:02→23:29)
[2016-10-14] MEDS: D5-0.45NS 1,000 ML IV SCH (00:09)
[2016-10-14 07:48] LABS: INR 1.26 (0.5-1.4); PROTHROMBIN TIME (TEST) 12.7 SECONDS (9.5-11.5)
[2016-10-14 07:49] LABS: ANION GAP 9.3 (7.0-16.0); BUN - UREA NITROGEN 24 mg/dL (7-25); CALCIUM SERUM 8.9 mg/dL (8.6-10.3); CARBON DIOXIDE 22.9 mEq/L (21.0-31.0); CHLORIDE 106 mEq/L (98-107); CREATININE - SERUM 0.5 mg/dL (0.6-1.2); GLUCOSE 124 mg/dL (70-105); POTASSIUM SERUM 3.2 mEq/L (3.5-5.1); SODIUM SERUM 135 mEq/L (136-145)
[2016-10-14 08:36] LABS: HEMOGLOBIN 12.3 gm/dL (11.7-15.5); MEAN CORPUSCULAR HEMOGLOBIN 29.6 pg (27.0-31.0); RED CELL DISTRIBUTION WIDTH 12.1 % (11.5-20.0); WHITE BLOOD COUNT 15.7 Th/cmm (4.8-10.8)
[2016-10-14 08:41] LABS: % BASOPHILS 0.3 % (0.0-2.0); % EOSINOPHILS 0.2 % (0.0-5.0); % LYMPHOCYTES 10.8 % (20.0-50.0); % MONOCYTES 9.1 % (2.0-10.0); % NEUTROPHILS 79.6 % (40.0-80.0); HEMATOCRIT 35.7 % (35.0-45.0); MEAN CELL VOLUME 85.8 fl (81-100); MEAN CORPUSCULAR HGB CONC 34.5 pg (28.0-36.0); MEAN PLATELET VOLUME 9.6 fl; NEUTROPHILE ABSOLUTE 12.6 Th/cmm (1.8-8.0); PLATELET COUNT 243 Th/cmm (150-400); RED BLOOD COUNT 4.16 Mil/cmm (3.80-5.10)
[2016-10-14] MEDS: Ascorbic Acid 500 mg/5 mL UDC GT SCH (10:20)
[2016-10-14] MEDS: Levetiracetam 500 mg/5mL 5mL UDC GT SCH ×2 (10:21→17:03)
[2016-10-14] MEDS: carBAMazepine 200 mg/10 mL UDC GT SCH ×3 (10:21→23:06)
[2016-10-14] MEDS: Benztropine 1 MG TAB GT SCH ×2 (10:21→17:04)
[2016-10-14] MEDS: Multivitamin w/ Minerals Tab GT SCH (10:22)
[2016-10-14] MEDS: POLYETHYLENE GLYCOL 3350 17 GM PACK GT SCH (10:22)
--- NOTE | 2016-10-14 12:05 | Diagnostic Imaging Report ---
Portable chest x-ray HISTORY: Shortness of breath, vascular catheter placement Compared with prior exam of August 10, 2017, a right-sided vascular catheter has been inserted. The tip is near the junction of the superior vena cava and right atrium. No focal pulmonary processes. IMPRESSION: 1. New vascular catheter placement as noted above 2. No focal pulmonary processes
[2016-10-14] MEDS ORDERED: Potassium Chloride 20 mEq ER Tab PO ONE (12:13)
[2016-10-14] MEDS ORDERED: Lidocaine 2% Gel 5 mL TP ONE (12:15)
--- NOTE | 2016-10-14 13:49 | Operative Report ---
PROCEDURE: Esophagogastroduodenoscopy with G-tube replacement. PREOPERATIVE DIAGNOSES: 1. Dysphagia and G-tube malposition. 2. Upper gastrointestinal bleed. POSTOPERATIVE DIAGNOSES: 1. Mild reflux esophagitis, probable cause of recent upper gastrointestinal bleed, now stopped. 2. Small hiatal hernia. 3. Malpositioned G-tube with balloon tip likely in duodenal bulb, status post G-tube removal and replacement with new G-tube. INDICATIONS: A 41-year-old female with mental retardation, seizure disorder with existing G-tube that was malpositioned. She also has nausea, vomiting and coffee ground emesis. CONSENT: Informed consent was obtained from the patient's durable power of deputy attorney general prior to procedure after explaining risks, benefits and alternatives including but not limited to infection, bleeding, perforation and . SEDATION: Monitored anesthesia care per Dr. Eagle. DESCRIPTION OF PROCEDURE AND FINDINGS: The procedure took place as an inpatient in the GI Suite of [facility]. The patient was kept in the left lateral decubitus position. Adequate sedation was achieved with above medications. An Olympus diagnostic upper endoscope was advanced via the patient's mouth into the esophagus. There was mild distal reflux esophagitis. The Z-line was noted at 32 cm from the gum. Retroflexion of stomach revealed a small hiatal hernia. No GE junction masses were identified. The G-tube balloon tip was noted in the duodenal bulb. The G-tube balloon tip was deflated using a syringe and brought out of the patient. Using the same gastrocutaneous fistula site, a new 24-Japanese replacement G-tube was inserted into the stomach. The balloon tip was noted endoscopically in the gastric lumen and inflated using 15 mL of sterile water. It was noted to be in good position. The patient tolerated the procedure well and there were no complications anticipated. The rest of the stomach appeared normal including the gastric antrum and duodenal bulb and second portion. RECOMMENDATIONS: 1. May restart G-tube feedings as tolerated. 2. Protonix and antiemetics. 3. Monitor hemoglobin. Thank you, Dr. Blayne Long for involving us in the care of the patient. If you have any further questions, please call us. JOB# [id number] [facility]
[2016-10-14] MEDS: Vancomycin HCl 500 MG in Sodium Chloride 0.9% 100 ML IV SCH ×2 (13:58→22:00)
--- NOTE | 2016-10-14 15:05 | Consultation ---
REFERRING PHYSICIAN: Blayne Long D.O. REASON FOR CONSULTATION: Upper GI bleed. HISTORY OF PRESENT ILLNESS: A 41-year-old female, mentally challenged, admitted for coffee ground emesis. She also had dysphagia and G-tube malfunction. PAST MEDICAL HISTORY: As above, seizure disorder and change in bowel habits. MEDICATIONS: Here Tylenol, albuterol, vitamin C, Cogentin, Dulcolax suppository as needed, Tums, Tegretol, vitamin D3, ibuprofen p.r.n., Atrovent, Keppra, Levaquin, Imodium p.r.n., Lopressor, IV vancomycin, Zofran, Protonix, MiraLax, Fleet Enema p.r.n. ALLERGIES: ROCEPHIN, TETANUS AND VALPROIC ACID. SOCIAL HISTORY: correction resident. No known tobacco, alcohol or drugs. FAMILY HISTORY: Noncontributory. REVIEW OF SYSTEMS: As per present illness, otherwise unobtainable. PHYSICAL EXAMINATION: VITAL SIGNS: Temperature of 97.1, blood pressure is 140/81, pulse of 67, respirations 18, O2 sat 95%. GENERAL: The patient is a well-developed, small statured female who is confused, in no acute distress. HEENT: Sclerae nonicteric. Oropharynx is clear. CARDIOVASCULAR: Regular rate and rhythm. LUNGS: Occasional rhonchi at the bases. ABDOMEN: Soft, nontender, intact 24-Hebrew replacement G-tube quite far into the stomach. RECTAL: Deferred. LABORATORY DATA AND IMAGING: WBC initially of 20.6, hemoglobin 12.7, platelet count is 277, creatinine is 0.5. ASSESSMENT: 1. Upper gastrointestinal bleed, rule out esophagitis, gastritis, peptic ulcer disease, etc. 2. Dysphagia with G-tube malfunction and malposition. 3. History of mental retardation and cerebral palsy. 4. History of seizure disorder. 5. Leukocytosis, rule out sepsis. RECOMMENDATIONS: 1. Antibiotics. 2. Monitor hemoglobin, transfuse as necessary. 3. Protonix. 4. Upper endoscopy with G-tube placement tomorrow pending consent. Thank you, Dr. Blayne Long for involving us in the care of your patient. If you have any questions, please call us. JOB# [id number]
[2016-10-15 05:33] LABS: FOLIC ACID 19.5 ng/mL (>3.0)
[2016-10-15 07:07] LABS: % BASOPHILS 0.8 % (0.0-2.0); % EOSINOPHILS 0.8 % (0.0-5.0); % LYMPHOCYTES 11.8 % (20.0-50.0); % MONOCYTES 9.6 % (2.0-10.0); HEMOGLOBIN 13.1 gm/dL (11.7-15.5); MEAN CELL VOLUME 85.9 fl (81-100); MEAN CORPUSCULAR HEMOGLOBIN 29.5 pg (27.0-31.0); MEAN CORPUSCULAR HGB CONC 34.4 pg (28.0-36.0); MEAN PLATELET VOLUME 9.5 fl; NEUTROPHILE ABSOLUTE 8.5 Th/cmm (1.8-8.0); PLATELET COUNT 219 Th/cmm (150-400); RED BLOOD COUNT 4.43 Mil/cmm (3.80-5.10); RED CELL DISTRIBUTION WIDTH 11.8 % (11.5-20.0)
[2016-10-15 07:24] LABS: WHITE BLOOD COUNT 11.1 Th/cmm (4.8-10.8)
[2016-10-15 07:36] LABS: ANION GAP 3.1 (7.0-16.0); BUN - UREA NITROGEN 12 mg/dL (7-25); CALCIUM SERUM 8.1 mg/dL (8.6-10.3); CARBON DIOXIDE 23.5 mEq/L (21.0-31.0); CHLORIDE 107 mEq/L (98-107); CREATININE - SERUM 0.5 mg/dL (0.6-1.2); GLUCOSE 110 mg/dL (70-105); SODIUM SERUM 131 mEq/L (136-145)
[2016-10-15 07:48] LABS: POTASSIUM SERUM 2.6 mEq/L (3.5-5.1)
[2016-10-15] MEDS: Vancomycin HCl 500 MG in Sodium Chloride 0.9% 100 ML IV SCH (09:38)
[2016-10-15] MEDS: Ascorbic Acid 500 mg/5 mL UDC GT SCH (10:57)
[2016-10-15] MEDS: Benztropine 1 MG TAB GT SCH ×2 (10:57→17:34)
[2016-10-15] MEDS: carBAMazepine 200 mg/10 mL UDC GT SCH ×2 (10:58→13:57)
[2016-10-15] MEDS: Levetiracetam 500 mg/5mL 5mL UDC GT SCH ×2 (10:58→17:34)
[2016-10-15] MEDS: Multivitamin w/ Minerals Tab GT SCH (11:00)
[2016-10-15] MEDS: POLYETHYLENE GLYCOL 3350 17 GM PACK GT SCH (11:00)
--- NOTE | 2016-10-15 11:37 | Internal Medicine Prog Note ---
Internal Medicine Subjective - Subjective Service Date: 10/15/16 (s/p peg placement) Patient seen and examined:: with staff Patient is:: awake, non-interactive Internal Medicine Objective - Results Result Diagrams: 10/15/16 06:15 10/15/16 06:15 Recent Labs: Laboratory Last Values WBC 11.1 Th/cmm (4.8-10.8) H D 10/15/16 06:15 RBC 4.43 Mil/cmm (3.80-5.10) 10/15/16 06:15 Hgb 13.1 gm/dL (11.7-15.5) 10/15/16 06:15 Hct 38.0 % (35.0-45.0) 10/15/16 06:15 MCV 85.9 fl (81-100) 10/15/16 06:15 MCH 29.5 pg (27.0-31.0) 10/15/16 06:15 MCHC Differential 34.4 pg (28.0-36.0) 10/15/16 06:15 RDW 11.8 % (11.5-20.0) 10/15/16 06:15 Plt Count 219 Th/cmm (150-400) 10/15/16 06:15 MPV 9.5 fl 10/15/16 06:15 Neutrophils % 77.0 % (40.0-80.0) 10/15/16 06:15 Band Neutrophils % 1 % (0-10) 10/12/16 06:39 Lymphocytes % 11.8 % (20.0-50.0) L 10/15/16 06:15 Monocytes % 9.6 % (2.0-10.0) 10/15/16 06:15 Eosinophils % 0.8 % (0.0-5.0) 10/15/16 06:15 Basophils % 0.8 % (0.0-2.0) 10/15/16 06:15 Neutrophils (Manual) 90 % (40-80) H 10/13/16 06:44 Lymphocytes 5 % (20-50) L 10/13/16 06:44 Monocytes 5 % (2-10) 10/13/16 06:44 Eosinophils 0 % (0-5) 10/11/16 14:40 Basophils 0 % (0-3) 10/11/16 14:40 Atypical Lymphocytes 1 % 10/12/16 06:39 Platelet Estimate ADEQUATE (NORMAL) 10/13/16 06:44 Platelet Morphology NORMAL (NORMAL) 10/13/16 06:44 RBC Morph Micro Appear NORMAL (NORMAL) 10/13/16 06:44 PT 12.7 SECONDS (9.5-11.5) H 10/14/16 06:00 INR 1.26 (0.5-1.4) 10/14/16 06:00 PTT (Actin FS) 25.8 SECONDS (26.0-38.0) L 10/13/16 10:27 Sodium 131 mEq/L (136-145) L 10/15/16 06:15 Potassium 2.6 mEq/L (3.5-5.1) L* 10/15/16 06:15 Chloride 107 mEq/L (98-107) 10/15/16 06:15 Carbon Dioxide 23.5 mEq/L (21.0-31.0) 10/15/16 06:15 Anion Gap 3.1 (7.0-16.0) L 10/15/16 06:15 BUN 12 mg/dL (7-25) 10/15/16 06:15 Creatinine 0.5 mg/dL (0.6-1.2) L 10/15/16 06:15 Est GFR ( Amer) > 60.0 ml/min (>90) 10/15/16 06:15 Est GFR (Non-Af Amer) > 60.0 ml/min 10/15/16 06:15 BUN/Creatinine Ratio 24.0 10/15/16 06:15 Glucose 110 mg/dL (70-105) H 10/15/16 06:15 Calcium 8.1 mg/dL (8.6-10.3) L 10/15/16 06:15 Magnesium 2.1 mg/dL (1.9-2.7) 10/12/16 06:39 Total Bilirubin 0.3 mg/dL (0.3-1.0) 10/11/16 14:40 AST 19 U/L (13-39) 10/11/16 14:40 ALT 15 U/L (7-52) 10/11/16 14:40 Alkaline Phosphatase 92 U/L (34-104) 10/11/16 14:40 Troponin I < 0.01 ng/mL (0.01-0.05) L 10/11/16 14:40 Total Protein 8.2 gm/dL (6.0-8.3) 10/11/16 14:40 Albumin 4.0 gm/dL (3.7-5.3) 10/11/16 14:40 Globulin 4.2 gm/dL 10/11/16 14:40 Albumin/Globulin Ratio 1.0 (1.0-1.8) 10/11/16 14:40 Triglycerides 86 mg/dL (<150) 10/11/16 14:40 Cholesterol 136 mg/dL (<200) 10/11/16 14:40 LDL Cholesterol Direct 64 mg/dL (75-193) L 10/11/16 14:40 HDL Cholesterol 59 mg/dL (23-92) 10/11/16 14:40 Vitamin B12 777 pg/mL (211-946) 10/12/16 06:39 Folic Acid 19.5 ng/mL (>3.0) 10/12/16 06:39 TSH 1.07 uIU/ml (0.34-5.60) 10/11/16 14:40 Vancomycin Trough 12.1 ug/mL (10-20) 10/15/16 06:15 Carbamazepine 7.3 ug/ml (4.0-12.0) 10/11/16 14:40 RPR NONREACTIVE (NONREACTIVE) 10/11/16 14:40 - Physical Exam Vitals and I&O: Vital Signs Temp 98.8 F 10/15/16 04:35 Pulse 71 10/15/16 10:58 Resp 18 10/15/16 04:35 BP 100/64 10/15/16 10:58 Pulse Ox 96 10/15/16 04:35 Intake & Output 10/14/16 10/15/16 10/15/16 18:59 06:59 18:59 Intake Total 110 350 Balance 110 350 Intake: Intake, IV Amount 100 200 Levofloxacin 500mg/100mL 100 500 mg In 100 ml @ 100 mls/hr IV Q24HR JUANI Rx#: [id number] Vancomycin HCl 500 mg In 100 100 Sodium Chloride 0.9% 100 ml @ 100 mls/hr IV Q12HR JUANI Rx#:[id number] Oral 150 Tube Feeding 10 Other: # Voids 3 3 # Bowel Movements 1 Stool Characteristics Soft Soft Active Medications: Current Medications Acetaminophen (Tylenol 650mg/20.3ml Suspension) 650 mg PO Q4H PRN PRN Reason: Pain or Fever >101 Stop: 12/10/16 20:41 Albuterol Sulfate (Albuterol 2.5mg/3ml Neb Ud) 2.5 mg HHN Q4H PRN PRN Reason: Shortness of Breath Ascorbic Acid (Vitamin C) 500 mg GT DAILY JUANI Stop: 12/11/16 08:59 Last Admin: 10/15/16 10:57 Dose: 500 mg Benztropine Mesylate (Cogentin) 1 mg GT BID JUANI Stop: 12/11/16 08:59 Last Admin: 10/15/16 10:57 Dose: 1 mg Bisacodyl (Dulcolax 10 Mg Supp) 10 mg RC DAILY PRN PRN Reason: Constipation Stop: 12/10/16 20:48 Calcium Carbonate (Tums) 500 mg GT BID JUANI Stop: 12/13/16 08:59 Last Admin: 10/15/16 10:58 Dose: 500 mg Carbamazepine (Tegretol) 200 mg GT TID JUANI PRN Reason: Protocol Stop: 12/10/16 20:59 Last Admin: 10/15/16 10:58 Dose: 200 mg Cholecalciferol (Vitamin D3) 1,000 iu GT DAILY JU[facility] Stop: 12/11/16 08:59 Last Admin: 10/15/16 10:58 Dose: 1,000 iu Dextrose/Sodium Chloride (D5-0.45ns) 1,000 mls @ 80 mls/hr IV .[id number] JUANI Stop: 12/10/16 20:29 Last Admin: 10/14/16 00:09 Dose: 80 mls/hr Levofloxacin (Levaquin Pb) 500 mg in 100 mls @ 100 mls/hr IV Q24HR JUANI Stop: 12/10/16 21:59 Last Infusion: 10/15/16 00:29 Dose: Infused Vancomycin HCl 500 mg/ Sodium (Chloride) 100 mls @ 100 mls/hr IV Q12HR JUANI Stop: 10/15/16 12:00 Last Admin: 10/15/16 09:38 Dose: 100 mls/hr Potassium Chloride 30 meq/ (Sodium Chloride) 265 mls @ 88.333 mls/hr IV X1 ONE Stop: 10/15/16 11:59 Vancomycin HCl 0.75 gm/ Sodium (Chloride) 250 mls @ 165 mls/hr IV Q12H [facility] Stop: 12/14/16 20:59 Ibuprofen (Motrin) 400 mg GT Q6H PRN PRN Reason: Pain (Mild) Stop: 12/10/16 20:46 Ipratropium [place] (Atrovent Neb 0.5mg/2.5ml) 0.5 mg HHN Q3H PRN PRN Reason: Shortness of Breath Levetiracetam (Keppra) 1,000 mg GT BID JUANI Stop: 12/11/16 08:59 Last Admin: 10/15/16 10:58 Dose: 1,000 mg Loperamide HCl (Imodium 1mg/5ml Suspension) 3 mg GT Q6H PRN PRN Reason: Diarrhea Stop: 12/10/16 20:45 Metoprolol Tartrate (Lopressor) 25 mg GT DAILY JUANI Stop: 12/11/16 08:59 Last Admin: 10/15/16 10:58 Dose: Not Given Miscellaneous (Vancomycin Iv Per Pharmacy) 1 ea MC PRN JUANI Stop: 12/12/16 00:14 Ondansetron HCl (Zofran) 4 mg IV Q6H PRN PRN Reason: Nausea / Vomiting Stop: 12/11/16 15:27 Last Admin: 10/12/16 15:57 Dose: 4 mg Pantoprazole Sodium (Protonix) 40 mg IVP BID JUANI Stop: 12/11/16 08:59 Last Admin: 10/14/16 17:03 Dose: 40 mg Polyethylene Glycol (Miralax) 17 gm GT DAILY JUANI Stop: 12/11/16 08:59 Last Admin: 10/15/16 11:00 Dose: 17 gm Sodium Phosphate (Fleet Enema) 135 ml RC DAILY PRN PRN Reason: Constipation Stop: 12/10/16 20:20 General: weak HEENT: NC/AT Neck: Supple Lungs: CTAB Cardiovascular: Normal S1, Normal S2, without murmur Abdomen: soft non-tender - Procedures Procedures: Procedures Procedure Code Date CHANGE FEEDING DEVICE IN UP INTEST TRACT, VINEYARD TENDER APPROACH [id number] 09/03/16 INSERT INDWELLING CATH 57.94 12/31/09 INSERT PICC CATH [id number] 05/18/14 VENOUS CATHETERIZATION NEC 38.93 05/18/14 Internal Medicine Assmt/Plan - Assessment Assessment: R/O GI BLEED INTRACTABLE VOMITING LEUKOCYTOSIS SPASTIC QUADRIPLEGIA SEIZURES GT CELLULITIS - Plan Plan: f/u labs ivf for hydration ivabx dc planning once tolerate gtf
[2016-10-15] MEDS ORDERED: Potassium Chloride Elixir 20 mEq /15 mL UDC GT SCH (13:00)
--- NOTE | 2016-10-15 13:06 | General Progress Note ---
Subjective - Review of Systems Service Date: 10/15/16 Subjective: EVENTS NOTED. CHACHA GT FEEDS 20. Objective - Results Result Diagrams: 10/15/16 06:15 10/15/16 06:15 Recent Labs: Laboratory Last Values WBC 11.1 Th/cmm (4.8-10.8) H D 10/15/16 06:15 RBC 4.43 Mil/cmm (3.80-5.10) 10/15/16 06:15 Hgb 13.1 gm/dL (11.7-15.5) 10/15/16 06:15 Hct 38.0 % (35.0-45.0) 10/15/16 06:15 MCV 85.9 fl (81-100) 10/15/16 06:15 MCH 29.5 pg (27.0-31.0) 10/15/16 06:15 MCHC Differential 34.4 pg (28.0-36.0) 10/15/16 06:15 RDW 11.8 % (11.5-20.0) 10/15/16 06:15 Plt Count 219 Th/cmm (150-400) 10/15/16 06:15 MPV 9.5 fl 10/15/16 06:15 Neutrophils % 77.0 % (40.0-80.0) 10/15/16 06:15 Band Neutrophils % 1 % (0-10) 10/12/16 06:39 Lymphocytes % 11.8 % (20.0-50.0) L 10/15/16 06:15 Monocytes % 9.6 % (2.0-10.0) 10/15/16 06:15 Eosinophils % 0.8 % (0.0-5.0) 10/15/16 06:15 Basophils % 0.8 % (0.0-2.0) 10/15/16 06:15 Neutrophils (Manual) 90 % (40-80) H 10/13/16 06:44 Lymphocytes 5 % (20-50) L 10/13/16 06:44 Monocytes 5 % (2-10) 10/13/16 06:44 Eosinophils 0 % (0-5) 10/11/16 14:40 Basophils 0 % (0-3) 10/11/16 14:40 Atypical Lymphocytes 1 % 10/12/16 06:39 Platelet Estimate ADEQUATE (NORMAL) 10/13/16 06:44 Platelet Morphology NORMAL (NORMAL) 10/13/16 06:44 RBC Morph Micro Appear NORMAL (NORMAL) 10/13/16 06:44 PT 12.7 SECONDS (9.5-11.5) H 10/14/16 06:00 INR 1.26 (0.5-1.4) 10/14/16 06:00 PTT (Actin FS) 25.8 SECONDS (26.0-38.0) L 10/13/16 10:27 Sodium 131 mEq/L (136-145) L 10/15/16 06:15 Potassium 2.6 mEq/L (3.5-5.1) L* 10/15/16 06:15 Chloride 107 mEq/L (98-107) 10/15/16 06:15 Carbon Dioxide 23.5 mEq/L (21.0-31.0) 10/15/16 06:15 Anion Gap 3.1 (7.0-16.0) L 10/15/16 06:15 BUN 12 mg/dL (7-25) 10/15/16 06:15 Creatinine 0.5 mg/dL (0.6-1.2) L 10/15/16 06:15 Est GFR ( Amer) > 60.0 ml/min (>90) 10/15/16 06:15 Est GFR (Non-Af Amer) > 60.0 ml/min 10/15/16 06:15 BUN/Creatinine Ratio 24.0 10/15/16 06:15 Glucose 110 mg/dL (70-105) H 10/15/16 06:15 Calcium 8.1 mg/dL (8.6-10.3) L 10/15/16 06:15 Magnesium 2.1 mg/dL (1.9-2.7) 10/12/16 06:39 Total Bilirubin 0.3 mg/dL (0.3-1.0) 10/11/16 14:40 AST 19 U/L (13-39) 10/11/16 14:40 ALT 15 U/L (7-52) 10/11/16 14:40 Alkaline Phosphatase 92 U/L (34-104) 10/11/16 14:40 Troponin I < 0.01 ng/mL (0.01-0.05) L 10/11/16 14:40 Total Protein 8.2 gm/dL (6.0-8.3) 10/11/16 14:40 Albumin 4.0 gm/dL (3.7-5.3) 10/11/16 14:40 Globulin 4.2 gm/dL 10/11/16 14:40 Albumin/Globulin Ratio 1.0 (1.0-1.8) 10/11/16 14:40 Triglycerides 86 mg/dL (<150) 10/11/16 14:40 Cholesterol 136 mg/dL (<200) 10/11/16 14:40 LDL Cholesterol Direct 64 mg/dL (75-193) L 10/11/16 14:40 HDL Cholesterol 59 mg/dL (23-92) 10/11/16 14:40 Vitamin B12 777 pg/mL (211-946) 10/12/16 06:39 Folic Acid 19.5 ng/mL (>3.0) 10/12/16 06:39 TSH 1.07 uIU/ml (0.34-5.60) 10/11/16 14:40 Vancomycin Trough 12.1 ug/mL (10-20) 10/15/16 06:15 Carbamazepine 7.3 ug/ml (4.0-12.0) 10/11/16 14:40 RPR NONREACTIVE (NONREACTIVE) 10/11/16 14:40 - Physical Exam Vitals and I&O: Vital Signs Temp 98.8 F 10/15/16 04:35 Pulse 71 10/15/16 10:58 Resp 18 10/15/16 04:35 BP 100/64 10/15/16 10:58 Pulse Ox 96 10/15/16 04:35 Intake & Output 10/14/16 10/15/16 10/15/16 18:59 06:59 18:59 Intake Total 110 350 Balance 110 350 Weight (lbs) 41.232 kg Intake: Intake, IV Amount 100 200 Levofloxacin 500mg/100mL 100 500 mg In 100 ml @ 100 mls/hr IV Q24HR [facility] Rx#: [id number] Vancomycin HCl 500 mg In 100 100 Sodium Chloride 0.9% 100 ml @ 100 mls/hr IV Q12HR [facility] Rx#:[id number] Oral 150 Tube Feeding 10 Other: # Voids 3 3 # Bowel Movements 1 Stool Characteristics Soft Soft Active Medications: Current Medications Acetaminophen (Tylenol 650mg/20.3ml Suspension) 650 mg PO Q4H PRN PRN Reason: Pain or Fever >101 Stop: 12/10/16 20:41 Albuterol Sulfate (Albuterol 2.5mg/3ml Neb Ud) 2.5 mg HHN Q4H PRN PRN Reason: Shortness of Breath Ascorbic Acid (Vitamin C) 500 mg GT DAILY JUANI Stop: 12/11/16 08:59 Last Admin: 10/15/16 10:57 Dose: 500 mg Benztropine Mesylate (Cogentin) 1 mg GT BID JUANI Stop: 12/11/16 08:59 Last Admin: 10/15/16 10:57 Dose: 1 mg Bisacodyl (Dulcolax 10 Mg Supp) 10 mg RC DAILY PRN PRN Reason: Constipation Stop: 12/10/16 20:48 Calcium Carbonate (Tums) 500 mg GT BID JUANI Stop: 12/13/16 08:59 Last Admin: 10/15/16 10:58 Dose: 500 mg Carbamazepine (Tegretol) 200 mg GT TID JUANI PRN Reason: Protocol Stop: 12/10/16 20:59 Last Admin: 10/15/16 10:58 Dose: 200 mg Cholecalciferol (Vitamin D3) 1,000 iu GT DAILY [facility] Stop: 12/11/16 08:59 Last Admin: 10/15/16 10:58 Dose: 1,000 iu Ipratropium [place] (Atrovent Neb 0.5mg/2.5ml) 0.5 mg HHN Q3H PRN PRN Reason: Shortness of Breath Levetiracetam (Keppra) 1,000 mg GT BID [facility] Stop: 12/11/16 08:59 Last Admin: 10/15/16 10:58 Dose: 1,000 mg Levofloxacin (Levaquin) 500 mg PO DAILY [facility] Stop: 10/21/16 08:59 Loperamide HCl (Imodium 1mg/5ml Suspension) 3 mg GT Q6H PRN PRN Reason: Diarrhea Stop: 12/10/16 20:45 Metoprolol Tartrate (Lopressor) 25 mg GT DAILY [facility] Stop: 12/11/16 08:59 Last Admin: 10/15/16 10:58 Dose: Not Given Ondansetron HCl (Zofran) 4 mg IV Q6H PRN PRN Reason: Nausea / Vomiting Stop: 12/11/16 15:27 Last Admin: 10/12/16 15:57 Dose: 4 mg Pantoprazole Sodium (Protonix) 40 mg PO BID [facility] Stop: 12/14/16 16:59 Polyethylene Glycol (Miralax) 17 gm GT DAILY JUANI Stop: 12/11/16 08:59 Last Admin: 10/15/16 11:00 Dose: 17 gm Potassium Chloride (Potassium Chloride Elixir) 20 meq GT DAILY [facility] Stop: 12/15/16 08:59 Sodium Phosphate (Fleet Enema) 135 ml RC DAILY PRN PRN Reason: Constipation Stop: 12/10/16 20:20 General: No acute distress HEENT: Atraumatic Neck: Supple Cardiovascular: Regular rate Lungs: Clear to auscultation Abdomen: Bowel sounds, Soft, Catheter (INTACT GT), no Tender - Procedures Procedures: Procedures Procedure Code Date CHANGE FEEDING DEVICE IN UP INTEST TRACT, JOB SERVICE CONSULTANT APPROACH [id number] 09/03/16 INSERT INDWELLING CATH 57.94 12/31/09 INSERT PICC CATH [id number] 05/18/14 VENOUS CATHETERIZATION NEC 38.93 05/18/14 Assessment/Plan - Problem List Patient Problems: All Active Problems Seizure (Active 06/15/15) R56.9 Allergen injection reaction (Acute) T80.89XA Observed seizure-like activity (Acute) R56.9 Systemic inflammatory response syndrome (Acute) 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 DYSPHAGIA WITH GT MALFUNCTION, S/P GT REPLACEMENT. 2. UGIB DUE TO ESOPHAGITIS. 3. MR/CP. - Plan Plan: 1. ADVANCE TUBE FEEDS CHACHA. 2. PROTONIX. 3. ANTIEMETICS PRN. 4. MONITOR HGB. GI SILVA STABLE ONCE FEEDS AT GOAL RATE.
[2016-10-15] MEDS ORDERED: Pantoprazole 40 mg EC Tab PO SCH (17:00)
--- NOTE | 2016-12-08 22:36 | Discharge Summary ---
FINAL DIAGNOSES: Rule out gastrointestinal bleed, intractable vomiting, leukocytosis, spastic quadriplegia, seizures and hypokalemia. HISTORY OF PRESENT ILLNESS: A 41-year-old female who is a resident of [facility] who was brought to [facility] for a 1-day history of coffee-ground emesis. The patient currently has a gastrostomy tube. PHYSICAL EXAMINATION: GENERAL: The patient is well developed, well nourished, in no acute distress. VITAL SIGNS: Stable. HEENT: Head normocephalic, atraumatic. NECK: Supple. No mass. LUNGS: Clear bilaterally. HEART: Regular rate and rhythm. ABDOMEN: Soft, nontender. HOSPITAL COURSE: During the hospital stay, the patient was admitted to the med/surg unit. The patient had a consultation with GI. The patient was kept on IV fluids for hydration. Also, the patient's H and H were being monitored as well. The patient had a consultation with Dr. Roman and his plan of care for this patient was to do upper endoscopy with G-tube placement as well. On 10/14/2016, the patient had an EGD with PEG placement and a postoperative diagnosis of mild reflux esophagitis, small hiatal hernia. The patient tolerated the procedure well. The patient's electrolytes were being monitored. Potassium was replaced. The patient's H and H was stable within the hospital stay. For this reason, the patient was stable for discharge. CONDITION UPON DISCHARGE: Fair. DISPOSITION: [facility]. JOB# [id number]
== END 2016-10-15 18:45 | DRG 377 ==
LOC: ER 13:46 → MSI 20:01
PROVIDERS: ADMIT Internal Medicine; ATTEND Internal Medicine
PROC: 0DH68UZ Insertion of Feeding Device into Stomach, Via Natural or Artificial Opening Endoscopic (ICD-10-PCS; principal; 2016-10-14)
PROC: 02H633Z Insertion of Infusion Device into Right Atrium, Percutaneous Approach (ICD-10-PCS; 2016-10-14)
DX: K92.2 Gastrointestinal hemorrhage, unspecified (principal); G80.0 Spastic quadriplegic cerebral palsy; F03.90 Unspecified dementia, unspecified severity, without behavioral disturbance, psychotic disturbance, mood disturbance, and anxiety; K94.22 Gastrostomy infection; L03.311 Cellulitis of abdominal wall; K20.9 Esophagitis, unspecified; G40.909 Epilepsy, unspecified, not intractable, without status epilepticus; E87.6 Hypokalemia; F79 Unspecified intellectual disabilities; I10 Essential (primary) hypertension; K21.9 Gastro-esophageal reflux disease without esophagitis; D64.9 Anemia, unspecified; Y83.8 Other surgical procedures as the cause of abnormal reaction of the patient, or of later complication, without mention of misadventure at the time of the procedure; Y92.89 Other specified places as the place of occurrence of the external cause; K44.9 Diaphragmatic hernia without obstruction or gangrene; Z88.1 Allergy status to other antibiotic agents; Z88.8 Allergy status to other drugs, medicaments and biological substances
CPT/HCPCS: 36415-UA; 71010-TC; 80048-TC; 80053-TC; 80061-TC; 80156-TC; 80202-TC; 82607-90; 82746-90; 83735-TC; 84443-TC; 84484-TC; 85007-TC; 85025-TC; 85027-TC; 85610-TC; 85730-TC; 86592-TC; 94760; C1751; C9113; J0456; J0696; J1956; J2405; J2704; J2930; J3370; J3480; Z7506; Z7610

== ENCOUNTER 2017-04-10 12:38 | Inpatient (IN) | payer MEDICARE, MEDICAID ==
--- NOTE | 2017-04-10 12:58 | ED Physician Chart ---
Chief Complaint/HPI - Patient Information Date Seen:: 04/10/17 Time Seen:: 12:45 Chief Complaint:: seizure History of Present Illness:: At her half-way facility the patient had a 3 minute seizure. No further description of the seizure is known by the ballast cleaning machine operator or accompanies the transfer documents. Allergies:: Allergies Allergy/AdvReac Type Severity Reaction Status Date / Time ceftriaxone Allergy Verified 06/14/16 04:59 tetanus toxoid, adsorbed Allergy Verified 06/14/16 04:59 valproic acid Allergy Verified 06/14/16 04:59 Historian:: EMS Review:: Transfer documents Reviewed Review of Systems - Review of Systems General/Constitutional: No fever, No chills Skin: No skin lesions ENT: No earache Neck: No neck pain Cardio Vascular: No chest pain, No palpitations Pulmonary: No SOB GI: No nausea, No vomiting G/U: No dysuria Psychiatric: No prior psych history Hematopoietic: No bruising Allergic/Immuno: No urticaria Neurological: No syncope, No focal symptoms, Seizure Past Medical History - Past Medical History Past Medical History: HTN, Other (cerebral palsy; spastic quadriplegia; GERD; microcephaly; blindness; status post bilateral pneumonia) Family History: Other (not available) Social History: Care Facility Surgical History: PEG/GTube Psychiatricy History: Other (see history) Medication: Reviewed Family Medical History - Family Member Mother History Unknown: Yes Ethnicity: Unknown Physical Exam - Physical Examination General/Constitutional: Awake, No distress Other Gen/Cons comments:: Restless; nonverbal Head: Atraumatic Eyes: Lids, conjuctiva normal Skin: Nl inspection ENMT: External ears, nose nl, Nasal exam nl Neck: No nuchal rigidity Cardio Vascular: RRR GI: No tenderness/rebounding/guarding, No organomegaly : No CVA tenderness Extremities: Normal digits & nails Neuro/Psych: No focal deficits Misc: Normal back Labs/Radiology/EKG Results - Lab Results Comments:: Laboratory Results - last 24 hr 04/10/17 04/10/17 04/10/17 12:59 12:59 12:59 WBC 20.3 H* D RBC 4.64 Hgb 13.4 Hct 40.2 MCV 86.8 MCH 28.8 MCHC Differential 33.2 RDW 12.5 Plt Count 253 MPV 9.7 Band Neutrophils % 3 Neutrophils (Manual) 88 H Lymphocytes 3 L Monocytes 5 Eosinophils 1 Platelet Estimate ADEQUATE Platelet Morphology NORMAL RBC Morph Micro Appear NORMAL Sodium 134 L Potassium 3.7 Chloride 106 Carbon Dioxide 22.0 Anion Gap 9.7 BUN 25 Creatinine 0.6 Est GFR ( Amer) > 60.0 Est GFR (Non-Af Amer) > 60.0 BUN/Creatinine Ratio 41.7 Glucose 118 H Whole Bld Lactic Acid Calcium 9.6 Urine Source Urine Color Urine Clarity Urine pH Ur Specific [place] Urine Protein Urine Glucose (UA) Urine Ketones Urine Blood Urine Nitrate Urine Bilirubin Urine Urobilinogen Ur Leukocyte Esterase Urine RBC Urine WBC Ur Epithelial Cells Urine Bacteria Urine Mucus Carbamazepine 5.4 04/10/17 04/10/17 12:59 14:17 WBC RBC Hgb Hct MCV MCH MCHC Differential RDW Plt Count MPV Band Neutrophils % Neutrophils (Manual) Lymphocytes Monocytes Eosinophils Platelet Estimate Platelet Morphology RBC Morph Micro Appear Sodium Potassium Chloride Carbon Dioxide Anion Gap BUN Creatinine Est GFR ( Amer) Est GFR (Non-Af Amer) BUN/Creatinine Ratio Glucose Whole Bld Lactic Acid 1.45 Calcium Urine Source CATH Urine Color YELLOW Urine Clarity SLIGHT CLOUDY Urine pH 7.0 Ur Specific Dunn 1.020 Urine Protein 100 H Urine Glucose (UA) NEGATIVE Urine Ketones NEGATIVE Urine Blood NEGATIVE Urine Nitrate NEGATIVE Urine Bilirubin NEGATIVE Urine Urobilinogen 0.2 Ur Leukocyte Esterase TRACE H Urine RBC 0-2 Urine WBC 25-50 H Ur Epithelial Cells FEW Urine Bacteria FEW Urine Mucus FEW Carbamazepine Assessment - Assessment General Assessment: At 1315 I talked to an individual at the patient's care facility who witnessed her seizure. She stated this seizure was generalized and lasted about 3 minutes. She said that the patient's last seizure was about 2 years ago. She states the patient has not had a recent fever. Spoke to Katharina (Dr. Long's KITCHEN HAND) at 1630. ED Septic Shock - . Is Septic Shock (SBP<90, OR Lactate>4 mmol\L) present?: No Reassessment (Disposition) - Reassessment Reassessment Condition:: Improved - Diagnosis Diagnosis:: Seizure; acute febrile illness; urinary tract infection; profound mental disability - Patient Disposition Admitted to:: Telemetry Admitting Medical Physician:: Blayne Long Condition at Disposition:: Stable, Improved
[2017-04-10 13:18] LABS: HEMATOCRIT 40.2 % (35.0-45.0); HEMOGLOBIN 13.4 gm/dL (11.7-15.5); MEAN CELL VOLUME 86.8 fl (81-100); MEAN CORPUSCULAR HEMOGLOBIN 28.8 pg (27.0-31.0); MEAN CORPUSCULAR HGB CONC 33.2 pg (28.0-36.0); MEAN PLATELET VOLUME 9.7 fl; PLATELET COUNT 253 Th/cmm (150-400); RED BLOOD COUNT 4.64 Mil/cmm (3.80-5.10); RED CELL DISTRIBUTION WIDTH 12.5 % (11.5-20.0)
[2017-04-10 13:21] LABS: WHITE BLOOD COUNT 20.3 Th/cmm (4.8-10.8)
[2017-04-10 13:26] LABS: ANION GAP 9.7 (7.0-16.0); BUN - UREA NITROGEN 25 mg/dL (7-25); BUN/CREATININE RATIO 41.7; CALCIUM SERUM 9.6 mg/dL (8.6-10.3); CHLORIDE 106 mEq/L (98-107); CREATININE - SERUM 0.6 mg/dL (0.6-1.2); GLUCOSE 118 mg/dL (70-105); POTASSIUM SERUM 3.7 mEq/L (3.5-5.1); SODIUM SERUM 134 mEq/L (136-145)
[2017-04-10 13:33] LABS: BAND NEUTROPHILE 3 % (0-10); EOSINOPHIL 1 % (0-5); NEUTROPHILS 88 % (40-80); TOTAL CELLS COUNTED 100
[2017-04-10 13:34] LABS: PLATELET ESTIMATE ADEQUATE (NORMAL); PLATELET MORPHOLOGY NORMAL (NORMAL)
--- NOTE | 2017-04-10 13:57 | Diagnostic Imaging Report ---
CHEST X-RAY: AP view INDICATION: Fever and pneumonia COMPARISON: Chest x-ray 10/13/2016 FINDINGS: Prior right sided vascular catheter has been removed. Suboptimal lung are noted with no focal consolidation or effusions. Heart size is normal. Degenerative changes of the spine and shoulders are noted. IMPRESSION: No focal consolidation identified.
[2017-04-10 15:20] LABS: URINE BILIRUBIN NEGATIVE (NEGATIVE); URINE BLOOD NEGATIVE (NEGATIVE); URINE GLUCOSE (UA) NEGATIVE (NEGATIVE); URINE KETONE NEGATIVE (NEGATIVE); URINE PROTEIN 100 mg/dL (NEGATIVE); URINE UROBILINOGEN 0.2 E.U./dL (0.2 - 1.0)
[2017-04-10 15:28] LABS: URINE BACTERIA FEW /hpf (NONE SEEN); URINE COLOR YELLOW; URINE EPITHELIAL CELLS FEW /lpf (FEW); URINE RBC 0-2 /hpf (0-5)
[2017-04-10 15:29] LABS: URINE WBC 25-50 /hpf (0-5)
[2017-04-10] MEDS ORDERED: Sodium Chloride 0.9% 1,000 ML IV ONE (15:31)
[2017-04-10] MEDS ORDERED: Levofloxacin 500mg/100mL 500 MG/100 ML BAG IV ONE ×2 (15:35→15:39)
[2017-04-10] MEDS ORDERED: Sodium Chloride 0.9% 500 ML IV ONE ×2 (17:40→19:33)
[2017-04-11] MEDS ORDERED: Levofloxacin 500mg/100mL 500 MG/100 ML BAG IV SCH (12:00)
[2017-04-11] MEDS ORDERED: carBAMazepine 200 mg/10 mL UDC PO SCH (14:00)
[2017-04-11] MEDS ORDERED: Ipratropium Neb 0.5 mg/2.5 mL UD HHN PRN (15:08)
[2017-04-11] MEDS ORDERED: Magnesium Hydroxide (MOM) 30 mL UDC GT PRN (15:08)
[2017-04-11] MEDS ORDERED: Fleet Enema 135 mL RC PRN (15:08)
--- NOTE | 2017-04-11 15:08 | Internal Medicine Prog Note ---
Internal Medicine Subjective - Subjective Service Date: 04/11/17 ([facility] [id number]) Internal Medicine Objective - Results Result Diagrams: 04/10/17 12:59 04/10/17 12:59 Recent Labs: Laboratory Last Values WBC 20.3 Th/cmm (4.8-10.8) H* D 04/10/17 12:59 RBC 4.64 Mil/cmm (3.80-5.10) 04/10/17 12:59 Hgb 13.4 gm/dL (11.7-15.5) 04/10/17 12:59 Hct 40.2 % (35.0-45.0) 04/10/17 12:59 MCV 86.8 fl (81-100) 04/10/17 12:59 MCH 28.8 pg (27.0-31.0) 04/10/17 12:59 MCHC Differential 33.2 pg (28.0-36.0) 04/10/17 12:59 RDW 12.5 % (11.5-20.0) 04/10/17 12:59 Plt Count 253 Th/cmm (150-400) 04/10/17 12:59 MPV 9.7 fl 04/10/17 12:59 Band Neutrophils % 3 % (0-10) 04/10/17 12:59 Neutrophils (Manual) 88 % (40-80) H 04/10/17 12:59 Lymphocytes 3 % (20-50) L 04/10/17 12:59 Monocytes 5 % (2-10) 04/10/17 12:59 Eosinophils 1 % (0-5) 04/10/17 12:59 Platelet Estimate ADEQUATE (NORMAL) 04/10/17 12:59 Platelet Morphology NORMAL (NORMAL) 04/10/17 12:59 RBC Morph Micro Appear NORMAL (NORMAL) 04/10/17 12:59 Sodium 134 mEq/L (136-145) L 04/10/17 12:59 Potassium 3.7 mEq/L (3.5-5.1) 04/10/17 12:59 Chloride 106 mEq/L (98-107) 04/10/17 12:59 Carbon Dioxide 22.0 mEq/L (21.0-31.0) 04/10/17 12:59 Anion Gap 9.7 (7.0-16.0) 04/10/17 12:59 BUN 25 mg/dL (7-25) 04/10/17 12:59 Creatinine 0.6 mg/dL (0.6-1.2) 04/10/17 12:59 Est GFR ( Amer) > 60.0 ml/min (>90) 04/10/17 12:59 Est GFR (Non-Af Amer) > 60.0 ml/min 04/10/17 12:59 BUN/Creatinine Ratio 41.7 04/10/17 12:59 Glucose 118 mg/dL (70-105) H 04/10/17 12:59 Whole Bld Lactic Acid 1.45 mmol/L (0.60-1.99) 04/10/17 12:59 Calcium 9.6 mg/dL (8.6-10.3) 04/10/17 12:59 Urine Source CATH 04/10/17 14:17 Urine Color YELLOW 04/10/17 14:17 Urine Clarity SLIGHT CLOUDY (CLEAR) 04/10/17 14:17 Urine pH 7.0 (4.6 - 8.0) 04/10/17 14:17 Ur Specific [place] 1.020 (1.005-1.030) 04/10/17 14:17 Urine Protein 100 mg/dL (NEGATIVE) H 04/10/17 14:17 Urine Glucose (UA) NEGATIVE mg/dL (NEGATIVE) 04/10/17 14:17 Urine Ketones NEGATIVE mg/dL (NEGATIVE) 04/10/17 14:17 Urine Blood NEGATIVE (NEGATIVE) 04/10/17 14:17 Urine Nitrate NEGATIVE (NEGATIVE) 04/10/17 14:17 Urine Bilirubin NEGATIVE (NEGATIVE) 04/10/17 14:17 Urine Urobilinogen 0.2 E.U./dL (0.2 - 1.0) 04/10/17 14:17 Ur Leukocyte Esterase TRACE (NEGATIVE) H 04/10/17 14:17 Urine RBC 0-2 /hpf (0-5) 04/10/17 14:17 Urine WBC 25-50 /hpf (0-5) H 04/10/17 14:17 Ur Epithelial Cells FEW /lpf (FEW) 04/10/17 14:17 Urine Bacteria FEW /hpf (NONE SEEN) 04/10/17 14:17 Urine Mucus FEW /lpf (FEW) 04/10/17 14:17 Carbamazepine 5.4 ug/ml (4.0-12.0) 04/10/17 12:59 - Physical Exam Vitals and I&O: Vital Signs Temp 97 F 04/11/17 13:50 Pulse 101 04/11/17 13:50 Resp 16 04/11/17 13:50 BP 138/75 04/11/17 13:50 Pulse Ox 97 04/11/17 13:50 Intake & Output 04/10/17 04/11/17 04/11/17 18:59 06:59 18:59 Intake Total 500 530 100 Balance 500 530 100 Weight (lbs) 81 lb 8 oz Intake: Intake, IV Amount 500 100 Levofloxacin 500mg/100mL 100 500 mg In 100 ml @ 100 mls/hr IV Q24H [facility] Rx#: [id number] Tube Feeding 530 Other: # Voids 2 # Bowel Movements 1 Stool Characteristics Liquid Active Medications: Current Medications Carbamazepine (Tegretol) 200 mg PO TID [facility] PRN Reason: Protocol Stop: 06/10/17 13:59 Last Admin: 04/11/17 13:16 Dose: 200 mg Levofloxacin (Levaquin Pb) 500 mg in 100 mls @ 100 mls/hr IV Q24H [facility] Stop: 06/10/17 11:59 Last Infusion: 04/11/17 13:16 Dose: Infused Gentamicin Sulfate 80 mg/ (Sodium Chloride) 102 mls @ 200 mls/hr IV Q12H [facility] Stop: 06/10/17 13:59 Levetiracetam (Keppra) 1,000 mg PO BID [facility] Stop: 06/10/17 11:59 Last Admin: 04/11/17 11:53 Dose: 1,000 mg Miscellaneous (Gentamicin Iv Per Pharmacy) 1 [facility] PRN [facility] Stop: 06/10/17 12:44 - Procedures Procedures: Procedures Procedure Code Date CHANGE FEEDING DEVICE IN UP INTEST TRACT, REGULATORY LEAD APPROACH [id number] 09/03/16 INSERT INDWELLING CATH 57.94 12/31/09 INSERT PICC CATH [id number] 05/18/14 INSERTION OF FEEDING DEVICE INTO STOMACH, ENDO [id number] 10/11/16 INSERTION OF INFUSION DEVICE INTO R [facility], PERC APPROACH 31R487M 10/11/16 VENOUS CATHETERIZATION NEC 38.93 05/18/14 Internal Medicine Assmt/Plan - Assessment Assessment: acute uti seizures cerebral palsy spastic quadriplegia GERD microcephaly blindness
[2017-04-11] MEDS ORDERED: guaiFENesin 200 MG/10 ML UDC PO PRN (15:11)
[2017-04-11] MEDS ORDERED: Albuterol Nebulizer 2.5mg/3mL IH PRN (15:11)
--- NOTE | 2017-04-11 16:48 | History & Physical ---
ADMIT DATE: 04/11/2017 CHIEF COMPLAINT: Seizures. HISTORY OF PRESENT ILLNESS: This is a 41-year-old female, resident of [facility], who is brought here to [facility] for 3 ____ episode of seizure. For this reason, the patient was admitted to the telemetry unit. In the ER, the patient was noted to have sinus tachycardia, heart rate about 100. PAST MEDICAL HISTORY: Cerebral palsy, spastic quadriplegia, GERD, macrocephaly, blindness, status post bilateral pneumonia, and hypertension. SOCIAL HISTORY: The patient is a senior living resident, requiring 24-hour nursing care. FAMILY HISTORY: Noncontributory. PAST SURGICAL HISTORY: PEG. MEDICATIONS: Please see medication reconciliation sheet. REVIEW OF SYSTEMS: Unable to obtain due to patient's mental status. PHYSICAL EXAMINATION: GENERAL: The patient is well developed, well nourished, no acute distress. VITAL SIGNS: Temperature 97, heart rate 101, blood pressure ____/75, respirations 16, O2 97%. HEENT: Head; normocephalic, atraumatic. NECK: Supple. No mass. LUNGS: Clear bilaterally. HEART: Regular rate and rhythm. ABDOMEN: Soft, nontender. LABORATORY DATA: WBC 20.3, H and H 13.4 and 40.2, platelet of 253. Sodium 134, potassium 3.7, chloride 106, BUN 25, creatinine 0.6. Urinalysis done. The patient is positive for UTI. DIAGNOSTICS: The patient had a chest x-ray done and the impression is no focal consolidation identified. ASSESSMENT: 1. Seizures. 2. Acute urinary tract infection. 3. Leukocytosis. 4. Cerebral palsy. 5. Spastic quadriplegia. 6. Gastroesophageal reflux disease. 7. Macrocephaly. 8. Blindness. PLAN: The patient to be admitted to the telemetry unit. The patient will be kept on empiric antibiotics of Levaquin, IV fluids for hydration. We will get urine culture and a.m. labs. We will continue to monitor this patient. JOB# [id number]
[2017-04-11] MEDS ORDERED: LEVOFLOXACIN 500 MG/100 ML IV SCH (17:00)
[2017-04-11] MEDS: Pantoprazole 40 mg/Packet GT SCH (17:06)
[2017-04-11] MEDS: Levetiracetam 500 mg/5mL 5mL UDC GT SCH (17:06)
[2017-04-11] MEDS: Ferrous Sulfate 300 MG/5 ML UDC GT SCH (17:06)
[2017-04-11] MEDS: Benztropine 1 MG TAB GT SCH (17:06)
[2017-04-11] MEDS: D5-0.45NS 1,000 ML IV SCH (17:07)
[2017-04-11] MEDS: carBAMazepine 200 mg/10 mL UDC GT SCH (21:31)
[2017-04-12 07:36] LABS: % BASOPHILS 0.6 % (0.0-2.0); % EOSINOPHILS 2.1 % (0.0-5.0); % LYMPHOCYTES 20.9 % (20.0-50.0); % MONOCYTES 10.5 % (2.0-10.0); % NEUTROPHILS 65.9 % (40.0-80.0); HEMOGLOBIN 12.2 gm/dL (11.7-15.5); MEAN CELL VOLUME 87.3 fl (81-100); MEAN CORPUSCULAR HEMOGLOBIN 30.1 pg (27.0-31.0); MEAN CORPUSCULAR HGB CONC 34.4 pg (28.0-36.0); MEAN PLATELET VOLUME 9.8 fl; NEUTROPHILE ABSOLUTE 5.9 Th/cmm (1.8-8.0); RED BLOOD COUNT 4.05 Mil/cmm (3.80-5.10); RED CELL DISTRIBUTION WIDTH 12.4 % (11.5-20.0)
[2017-04-12 08:00] LABS: BUN - UREA NITROGEN 8 mg/dL (7-25); CALCIUM SERUM 8.6 mg/dL (8.6-10.3); CARBON DIOXIDE 22.4 mEq/L (21.0-31.0); CHLORIDE 107 mEq/L (98-107); CREATININE - SERUM 0.5 mg/dL (0.6-1.2); GLUCOSE 117 mg/dL (70-105); POTASSIUM SERUM 3.4 mEq/L (3.5-5.1); SODIUM SERUM 134 mEq/L (136-145)
[2017-04-12 08:20] LABS: HEMATOCRIT 35.4 % (35.0-45.0); PLATELET COUNT 189 Th/cmm (150-400); WHITE BLOOD COUNT 9.1 Th/cmm (4.8-10.8)
--- NOTE | 2017-04-12 08:35 | Consultation ---
DATE OF CONSULTATION: 04/11/2017 ADDENDUM MEDICATIONS: Keppra 1000 q. 12 hours, Ativan p.r.n. PHYSICAL EXAMINATION: VITAL SIGNS: 96.5, blood pressure 130/70, pulse is 90. NECK: Supple. No bruits. HEART: Sounds S1, S2. LUNGS: Clear. ABDOMEN: G-tube. NEUROLOGIC: The patient in bed, eyes open. She kind of moves her arms spontaneously. Pupils are about 3 mm, reactive to light, clear, difficult for me to know the vision. The patient not much ____. IMPRESSION: 1. Seizures. 2. Cerebral palsy, spastic quadriplegia. 3. Acute urinary tract infection. 4. Blindness. 5. Dysphagia. PLAN: Continue present treatment. Monitor levels. JOB# [id number]
--- NOTE | 2017-04-12 08:39 | Consultation ---
DATE OF CONSULTATION: 04/11/2017 Neurologic consultation. A 41-year-old female. The patient with recurrent seizures. Since admission here, the patient is better. No repeat seizure. PAST MEDICAL HISTORY: Cerebral palsy, spastic quadriplegia, mental retardation. The patient with blindness. The patient with hypertension and pneumonia. SOCIAL HISTORY: The patient in a facility. PAST SURGICAL HISTORY: PEG. MEDICATIONS: As per reconciliation, the patient is on Cogentin, gentamicin, Keppra 1000 G-tube b.i.d., Dictation ends here JOB# [id number]
--- NOTE | 2017-04-12 08:42 | Diagnostic Imaging Report ---
CT abdomen and pelvis without intravenous contrast Indication: Fever Comparison: CT abdomen and pelvis on 06/14/2016, and ultrasound on 06/15/2016 Technique: Axial images were obtained from the lung bases to the bilateral proximal femurs without IV contrast. Coronal reconstructions were made. total DLP: 291, CTDI6 FINDINGS: Focal left basal infiltrate is noted with trace left pleural fluid. Exam is limited due to lack of IV contrast and motion. No evidence of focal hepatic lesions. Mild hepatomegaly is noted. Markedly distended gallbladder is seen. No radiopaque gallstones identified. No focal splenic lesions. Limited assessment of the pancreas demonstrates no focal abnormalities. Peripancreatic haziness has resolved. Percutaneous gastric feeding tube is noted. A 1.3 cm left renal cyst is noted. Additional subcentimeter bilateral renal low-density lesions are seen to small to characterize but suggestive of cysts. The urinary bladder is grossly unremarkable. Moderate stool is noted. No evidence of bowel obstruction. The appendix is not well-visualized. No evidence of free air or free fluid. Spinal scoliosis is seen. Deformity of the pelvis is noted with probable mild developmental dysplasia of the right hip joint. IMPRESSION: Markedly distended gallbladder. No evidence of radiopaque gallstones. Resolving previously seen peripancreatic inflammatory changes suggestive of resolving pancreatitis. Please correlate with clinical findings. Percutaneous gastric feeding tube noted. Left renal cysts and additional low density lesions too small to characterize but suggestive of cysts. Focal left basal infiltrates. Spinal scoliosis and deformity of the pelvis, possibly congenital. 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
[2017-04-12] MEDS ORDERED: Potassium Chloride 20 mEq ER Tab PO ONE (08:50)
--- NOTE | 2017-04-12 08:50 | Internal Medicine Prog Note ---
Internal Medicine Subjective - Subjective Service Date: 04/12/17 Patient seen and examined:: with staff Patient is:: awake, non-verbal Per staff patient has:: tolerating meds Internal Medicine Objective - Results Result Diagrams: 04/12/17 07:00 04/12/17 07:00 Recent Labs: Laboratory Last Values WBC 9.1 Th/cmm (4.8-10.8) D 04/12/17 07:00 RBC 4.05 Mil/cmm (3.80-5.10) 04/12/17 07:00 Hgb 12.2 gm/dL (11.7-15.5) 04/12/17 07:00 Hct 35.4 % (35.0-45.0) D 04/12/17 07:00 MCV 87.3 fl (81-100) 04/12/17 07:00 MCH 30.1 pg (27.0-31.0) 04/12/17 07:00 MCHC Differential 34.4 pg (28.0-36.0) 04/12/17 07:00 RDW 12.4 % (11.5-20.0) 04/12/17 07:00 Plt Count 189 Th/cmm (150-400) D 04/12/17 07:00 MPV 9.8 fl 04/12/17 07:00 Neutrophils % 65.9 % (40.0-80.0) 04/12/17 07:00 Band Neutrophils % 3 % (0-10) 04/10/17 12:59 Lymphocytes % 20.9 % (20.0-50.0) 04/12/17 07:00 Monocytes % 10.5 % (2.0-10.0) H 04/12/17 07:00 Eosinophils % 2.1 % (0.0-5.0) 04/12/17 07:00 Basophils % 0.6 % (0.0-2.0) 04/12/17 07:00 Neutrophils (Manual) 88 % (40-80) H 04/10/17 12:59 Lymphocytes 3 % (20-50) L 04/10/17 12:59 Monocytes 5 % (2-10) 04/10/17 12:59 Eosinophils 1 % (0-5) 04/10/17 12:59 Platelet Estimate ADEQUATE (NORMAL) 04/10/17 12:59 Platelet Morphology NORMAL (NORMAL) 04/10/17 12:59 RBC Morph Micro Appear NORMAL (NORMAL) 04/10/17 12:59 Sodium 134 mEq/L (136-145) L 04/12/17 07:00 Potassium 3.4 mEq/L (3.5-5.1) L 04/12/17 07:00 Chloride 107 mEq/L (98-107) 04/12/17 07:00 Carbon Dioxide 22.4 mEq/L (21.0-31.0) 04/12/17 07:00 Anion Gap 8.0 (7.0-16.0) 04/12/17 07:00 BUN 8 mg/dL (7-25) 04/12/17 07:00 Creatinine 0.5 mg/dL (0.6-1.2) L 04/12/17 07:00 Est GFR ( Amer) > 60.0 ml/min (>90) 04/12/17 07:00 Est GFR (Non-Af Amer) > 60.0 ml/min 04/12/17 07:00 BUN/Creatinine Ratio 16.0 04/12/17 07:00 Glucose 117 mg/dL (70-105) H 04/12/17 07:00 Whole Bld Lactic Acid 1.45 mmol/L (0.60-1.99) 04/10/17 12:59 Calcium 8.6 mg/dL (8.6-10.3) 04/12/17 07:00 Urine Source CATH 04/10/17 14:17 Urine Color YELLOW 04/10/17 14:17 Urine Clarity SLIGHT CLOUDY (CLEAR) 04/10/17 14:17 Urine pH 7.0 (4.6 - 8.0) 04/10/17 14:17 Ur Specific [place] 1.020 (1.005-1.030) 04/10/17 14:17 Urine Protein 100 mg/dL (NEGATIVE) H 04/10/17 14:17 Urine Glucose (UA) NEGATIVE mg/dL (NEGATIVE) 04/10/17 14:17 Urine Ketones NEGATIVE mg/dL (NEGATIVE) 04/10/17 14:17 Urine Blood NEGATIVE (NEGATIVE) 04/10/17 14:17 Urine Nitrate NEGATIVE (NEGATIVE) 04/10/17 14: Urine Bilirubin NEGATIVE (NEGATIVE) 04/10/17 14:17 Urine Urobilinogen 0.2 E.U./dL (0.2 - 1.0) 04/10/17 14:17 Ur Leukocyte Esterase TRACE (NEGATIVE) H 04/10/17 14:17 Urine RBC 0-2 /hpf (0-5) 04/10/17 14:17 Urine WBC 25-50 /hpf (0-5) H 04/10/17 14:17 Ur Epithelial Cells FEW /lpf (FEW) 04/10/17 14:17 Urine Bacteria FEW /hpf (NONE SEEN) 04/10/17 14:17 Urine Mucus FEW /lpf (FEW) 04/10/17 14:17 Carbamazepine 5.4 ug/ml (4.0-12.0) 04/10/17 12:59 - Physical Exam Vitals and I&O: Vital Signs Temp 98.3 F 04/12/17 04:00 Pulse 88 04/12/17 07:40 Resp 18 04/12/17 07:40 BP 95/57 04/12/17 04:00 Pulse Ox 98 04/12/17 07:40 Intake & Output 04/11/17 04/12/17 04/12/17 18:59 06:59 18:59 Intake Total 262 882 Balance 262 882 Weight (lbs) 81 lb 8 oz 79 lb 8 oz Intake: Intake, IV Amount 202 102 Gentamicin 80 mg In 102 102 Sodium Chloride 0.9% 100 ml @ 200 mls/hr IV Q12H [facility] Rx#:[id number] Levofloxacin 500mg/100mL 100 500 mg In 100 ml @ 100 mls/hr IV Q24H [facility] Rx#: [id number] Tube Feeding 60 530 Other 250 Other: # Voids 3 2 # Bowel Movements 2 2 Stool Characteristics Liquid Soft Active Medications: Current Medications Acetaminophen (Tylenol 650mg/20.3ml Suspension) 650 mg GT Q4H PRN PRN Reason: mild pain or >100.1 Stop: 06/10/17 15:07 Albuterol Sulfate (Albuterol 2.5mg/3ml Neb Ud) 2.5 mg IH Q2HR PRN PRN Reason: Shortness of Breath or Wheeze Stop: 06/10/17 15:10 Ascorbic Acid (Vitamin C) 500 mg GT DAILY [facility] Stop: 06/11/17 08:59 Aspirin (Aspirin Chewable) 81 mg GT DAILY [facility] Stop: 06/11/17 08:59 Benztropine Mesylate (Cogentin) 1 mg GT BID [facility] Stop: 06/10/17 16:59 Last Admin: 04/11/17 17:06 Dose: 1 mg Calcium Carbonate (Tums) 500 mg GT TID [facility] Stop: 06/10/17 15:59 Last Admin: 04/11/17 21:31 Dose: 500 mg Carbamazepine (Tegretol) 200 mg GT TID [facility] PRN Reason: Protocol Stop: 06/10/17 20:59 Last Admin: 04/11/17 21:31 Dose: 200 mg Cholecalciferol (Vitamin D3) 1,000 iu GT DAILY [facility] Stop: 06/11/17 08:59 Ferrous Sulfate (Iron) 300 mg GT BID [facility] Stop: 06/10/17 16:59 Last Admin: 04/11/17 17:06 Dose: 300 mg Glycopyrrolate (Robinul) 2 mg GT DAILY [facility] Stop: 06/11/17 08:59 Guaifenesin (Robitussin) 100 mg PO Q4H PRN PRN Reason: Cough or Congestion Stop: 06/10/17 15:10 Levofloxacin (Levaquin Pb) 500 mg in 100 mls @ 100 mls/hr IV Q24H [facility] Stop: 06/10/17 11:59 Last Infusion: 04/11/17 13:16 Dose: Infused Gentamicin Sulfate 80 mg/ (Sodium Chloride) 102 mls @ 200 mls/hr IV Q12H [facility] Stop: 06/10/17 13:59 Last Infusion: 04/12/17 02:26 Dose: Infused Dextrose/Sodium Chloride (D5-0.45ns) 1,000 mls @ 70 mls/hr IV .[id number] [facility] Stop: 06/10/17 15:14 Last Admin: 04/11/17 17:07 Dose: 70 mls/hr Ibuprofen (Motrin) 400 mg GT Q6H PRN PRN Reason: Pain (Mild) IF APAP INEFFECTIV Ipratropium [place] (Atrovent Neb 0.5mg/2.5ml) 0.5 mg HHN Q3H PRN PRN Reason: Shortness of Breath Levetiracetam (Keppra) 1,000 mg GT BID [facility] Stop: 06/10/17 16:59 Last Admin: 04/11/17 17:06 Dose: 1,000 mg Loperamide HCl (Imodium 1mg/5ml Suspension) 2 mg GT Q6H PRN PRN Reason: Diarrhea Lorazepam (Ativan) 0.5 mg IV Q4HR PRN; Protocol PRN Reason: Seizure Stop: 06/10/17 15:10 Magnesium Hydroxide (Milk Of Magnesia) 30 ml GT PRN PRN PRN Reason: no BM after 3 days Stop: 06/10/17 15:07 Metoprolol Tartrate (Lopressor) 25 mg GT DAILY [facility] Stop: 06/10/17 16:59 Last Admin: 04/11/17 17:06 Dose: Not Given Miscellaneous (Gentamicin Iv Per Pharmacy) 1 ea [facility] PRN [facility] Stop: 06/10/17 12:44 Pantoprazole Sodium (Protonix) 40 mg GT DAILY [facility] Stop: 06/10/17 16:59 Last Admin: 04/11/17 17:06 Dose: 40 mg Polyethylene Glycol (Miralax) 17 gm GT DAILY [facility] Stop: 06/11/17 08:59 Potassium Chloride (Potassium Chloride Elixir) 20 meq GT DAILY [facility] Stop: 06/11/17 08:59 Sodium Phosphate (Fleet Enema) 135 ml RC DAILY PRN PRN Reason: Constipation Stop: 06/10/17 15:07 General: weak, alert HEENT: NC/AT, PERRLA Neck: Supple Lungs: CTAB Cardiovascular: RRR, Normal S1, Normal S2, without murmur Abdomen: soft, non-tender, non-distended Extremities: excoriation Neurological: alert - Procedures Procedures: Procedures Procedure Code Date CHANGE FEEDING DEVICE IN UP INTEST TRACT, APPLICATION SECURITY SPECIALIST APPROACH [id number] 09/03/16 INSERT INDWELLING CATH 57.94 12/31/09 INSERT PICC CATH [id number] 05/18/14 INSERTION OF FEEDING DEVICE INTO STOMACH, ENDO [id number] 10/11/16 INSERTION OF INFUSION DEVICE INTO R [facility], PERC APPROACH 17N261S 10/11/16 VENOUS CATHETERIZATION NEC 38.93 05/18/14 Internal Medicine Assmt/Plan - Assessment Assessment: acute uti seizures cerebral palsy spastic quadriplegia GERD microcephaly blindness - Plan Plan: continue empiric ivabx am labs ivf for hydration seizure precautions Nutritional Asmnt/Malnutr-PDOC - Dietary Evaluation Malnutrition Findings (Please click <Entered> for more info): Nutritional Asmnt/Malnutrition Start: 04/11/17 12: 57 Text: Status: Complete Freq: Document 04/11/17 15:31 [facility] (Rec: 04/11/17 16:01 [facility] [id number]) Nutritional Asmnt/Malnutrition Patient General Information Nutritional Screening Consult Diagnosis Seizure Pertinent Medical Hx/Surgical Hx HTN, cerebral palsy, spastic quadriplegia, GERD, microcephaly, blindness, s/p bilateral pneumonia, PEG Subjective Information Nutrition Consult for Marc 12 and gtube received and completed. Pt is a 41-year-old female from [facility] admitted with chief complaint of seizure. Pt is nonverbal and a poor historian . Tube feeding off during time of visit at 1346, per order. Pt appears well nourished with no signs of muscle or fat depletion. Teeth intact. Per chart, pt has had downward wt trend since June 2016 (88.8 #). Last wt measured at facility was 81.8# on 04/01. Current Diet Order/ Nutrition Support Fibersource HN at 53 ml/hr x 16 hours =1018kcal,46gm protein,687 ml H2O Patient / S.O Can't verbalize diet edu Pertinent Medications Vitamin C, Gentamicin, Levaquin, KCl Elixir Pertinent Labs Reviewed Nutritional Hx/Data Height 4 ft 7 in Height (Calculated Centimeters) 139.7 Current Weight (lbs) 81 lb 8 oz Weight (Calculated Kilograms) 37.0 Weight (Calculated Grams) 97668.8 Usual body Weight (lbs) 88 % Usual Body Weight 93 [place] Body Weight N/A Recent Weight Change Yes Weight Status Approriate GI Symptoms GI Symptoms None Difficult in: Chewing Swallowing Food Allergies No Usual diet at home Jevity 1.2 at 53 ml/hr x 16 hours between 9102-2019 Skin Integrity/Comment: Marc 14. Rash to abdomen but no skin breakdown. Estimated Nutritional Goals Calories/Kcals/Kg Using UBW 40 kg for wt maintenance: Kcals Calculated 4450-8949 kcals/day (25-30 kcals/k) Protein g/kg: Using UBW 40 kg with consideration of bedbound status: Protein Calculated 40-52 gm/day (1-1.3 gm/kg) Fluid: ml 6459-4223 ml/day (1 ml/kcal) Nutritional Problem 1. Problem Problem Unintentional wt loss related to Etiology possible imbalance of energy intake vs expenditure as evidenced by Signs/Symptoms: 5.6% body wt loss in 6 months. Malnutrition Alert Interpretation of weight loss Non-Severe up to 10% in 6 months (mod) Protein-Calorie Malnutrition N/A Is there a minimum of two criteria No selected? Query Text:Check all the applicable criteria. A minimum of two criteria are recommended for diagnosis of either severe or non-severe malnutrition. Malnutrition Related to Morbid Obesity Malnutrition related to morbid obesity No Intervention/Recommendation Comments 1. Recommend increase Fibersource HN to 63 ml/hr x 16 hours to run between 1600- 0800 to meet higher ends of estimated nutritional needs to prevent further wt loss. Tube feeding to provide 1210 kcals , 52 gm protein, and 816 ml free water per day. Expected Outcomes/Goals Expected Outcomes/Goals Provide pt with 100% of estimated nutritional needs to wt maintenance.
[2017-04-12] MEDS: Potassium Chloride Elixir 20 mEq /15 mL UDC GT SCH (08:56)
[2017-04-12] MEDS: Levetiracetam 500 mg/5mL 5mL UDC GT SCH ×2 (08:56→17:16)
[2017-04-12] MEDS: Ferrous Sulfate 300 MG/5 ML UDC GT SCH ×2 (08:57→17:16)
[2017-04-12] MEDS: Ascorbic Acid 500 mg/5 mL UDC GT SCH (08:57)
[2017-04-12] MEDS: Aspirin 81mg Chewable Tab GT SCH (08:57)
[2017-04-12] MEDS: Pantoprazole 40 mg/Packet GT SCH (08:57)
[2017-04-12] MEDS: Benztropine 1 MG TAB GT SCH ×2 (08:57→17:16)
[2017-04-12] MEDS: Multivitamin w/ Minerals Tab GT SCH (08:57)
[2017-04-12] MEDS: carBAMazepine 200 mg/10 mL UDC GT SCH ×3 (08:57→20:52)
[2017-04-12] MEDS: POLYETHYLENE GLYCOL 3350 17 GM PACK GT SCH (09:27)
--- NOTE | 2017-04-12 13:37 | Consultation ---
DATE OF CONSULTATION: 04/11/2017 PRIMARY PHYSICIAN: Dr. Long. REASON FOR CONSULTATION: UTI. HISTORY OF PRESENT ILLNESS: This is a 41-year-old female who was brought to the Emergency Room with complaint of seizures. The patient was found to have UTI. Infectious consultation was called and she is unable to provide any meaningful history. Old chart reviewed. Pertinent information obtained. PAST MEDICAL HISTORY: Blindness, cerebral palsy, peptic ulcer disease. FAMILY HISTORY: Negative. PAST SURGICAL HISTORY: EGD and PEG placement. ALLERGIES: ROCEPHIN, TETANUS TOXOID AND VALPROIC ACID. REVIEW OF SYSTEMS: Fourteen point review of systems unable to obtain. No fall, trauma, HIV, hepatitis or bleeding. The patient did have seizure as mentioned above. PHYSICAL EXAMINATION: GENERAL: Young female, nonverbal without any communication skills, blind. VITAL SIGNS: Temperature 98.3, pulse 70, respiration 18, blood pressure 93/62. HEENT: Mild pallor, no icterus. NECK: Supple. No thyromegaly. LUNGS: Breath sounds bilateral vesicular. CARDIOVASCULAR: Regular 1, S2. ABDOMEN: Soft, bowel sounds present. LYMPHATICS: No ____ cervical lymph nodes. LABORATORY DATA: White count 20,000, hemoglobin ____, platelets 253. UA positive for UTI. Cultures pending. DIAGNOSIS: Urinary tract infection. The patient already on Levaquin. We will add gentamicin . Repeat labs tomorrow. Supportive care. Regarding seizures, the patient on [facility], Neurology evaluation, Dr. Preston, cerebral palsy and blindness, nursing care. Thank you Dr. Long for this consultation. JOB# [id number]
[2017-04-12] MEDS: D5-0.45NS 1,000 ML IV SCH (14:38)
[2017-04-13] MEDS: D5-0.45NS 1,000 ML IV SCH ×2 (07:02→23:33)
--- NOTE | 2017-04-13 08:01 | Internal Medicine Prog Note ---
Internal Medicine Subjective - Subjective Service Date: 04/13/17 Patient seen and examined:: with staff Patient is:: awake, non-verbal Per staff patient has:: no adverse event, tolerating meds Internal Medicine Objective - Results Result Diagrams: 04/12/17 07:00 04/12/17 07:00 Recent Labs: Laboratory Last Values WBC 9.1 Th/cmm (4.8-10.8) D 04/12/17 07:00 RBC 4.05 Mil/cmm (3.80-5.10) 04/12/17 07:00 Hgb 12.2 gm/dL (11.7-15.5) 04/12/17 07:00 Hct 35.4 % (35.0-45.0) D 04/12/17 07:00 MCV 87.3 fl (81-100) 04/12/17 07:00 MCH 30.1 pg (27.0-31.0) 04/12/17 07:00 MCHC Differential 34.4 pg (28.0-36.0) 04/12/17 07:00 RDW 12.4 % (11.5-20.0) 04/12/17 07:00 Plt Count 189 Th/cmm (150-400) D 04/12/17 07:00 MPV 9.8 fl 04/12/17 07:00 Neutrophils % 65.9 % (40.0-80.0) 04/12/17 07:00 Band Neutrophils % 3 % (0-10) 04/10/17 12:59 Lymphocytes % 20.9 % (20.0-50.0) 04/12/17 07:00 Monocytes % 10.5 % (2.0-10.0) H 04/12/17 07:00 Eosinophils % 2.1 % (0.0-5.0) 04/12/17 07:00 Basophils % 0.6 % (0.0-2.0) 04/12/17 07:00 Neutrophils (Manual) 88 % (40-80) H 04/10/17 12:59 Lymphocytes 3 % (20-50) L 04/10/17 12:59 Monocytes 5 % (2-10) 04/10/17 12:59 Eosinophils 1 % (0-5) 04/10/17 12:59 Platelet Estimate ADEQUATE (NORMAL) 04/10/17 12:59 Platelet Morphology NORMAL (NORMAL) 04/10/17 12:59 RBC Morph Micro Appear NORMAL (NORMAL) 04/10/17 12:59 Sodium 134 mEq/L (136-145) L 04/12/17 07:00 Potassium 3.4 mEq/L (3.5-5.1) L 04/12/17 07:00 Chloride 107 mEq/L (98-107) 04/12/17 07:00 Carbon Dioxide 22.4 mEq/L (21.0-31.0) 04/12/17 07:00 Anion Gap 8.0 (7.0-16.0) 04/12/17 07:00 BUN 8 mg/dL (7-25) 04/12/17 07:00 Creatinine 0.5 mg/dL (0.6-1.2) L 04/12/17 07:00 Est GFR ( Amer) > 60.0 ml/min (>90) 04/12/17 07:00 Est GFR (Non-Af Amer) > 60.0 ml/min 04/12/17 07:00 BUN/Creatinine Ratio 16.0 04/12/17 07:00 Glucose 117 mg/dL (70-105) H 04/12/17 07:00 Whole Bld Lactic Acid 1.45 mmol/L (0.60-1.99) 04/10/17 12:59 Calcium 8.6 mg/dL (8.6-10.3) 04/12/17 07:00 Urine Source CATH 04/10/17 14:17 Urine Color YELLOW 04/10/17 14:17 Urine Clarity SLIGHT CLOUDY (CLEAR) 04/10/17 14:17 Urine pH 7.0 (4.6 - 8.0) 04/10/17 14:17 Ur Specific [place] 1.020 (1.005-1.030) 04/10/17 14:17 Urine Protein 100 mg/dL (NEGATIVE) H 04/10/17 14:17 Urine Glucose (UA) NEGATIVE mg/dL (NEGATIVE) 04/10/17 14:17 Urine Ketones NEGATIVE mg/dL (NEGATIVE) 04/10/17 14:17 Urine Blood NEGATIVE (NEGATIVE) 04/10/17 14:17 Urine Nitrate NEGATIVE (NEGATIVE) 04/10/17 14:17 Urine Bilirubin NEGATIVE (NEGATIVE) 04/10/17 14:17 Urine Urobilinogen 0.2 E.U./dL (0.2 - 1.0) 04/10/17 14:17 Ur Leukocyte Esterase TRACE (NEGATIVE) H 04/10/17 14:17 Urine RBC 0-2 /hpf (0-5) 04/10/17 14:17 Urine WBC 25-50 /hpf (0-5) H 04/10/17 14:17 Ur Epithelial Cells FEW /lpf (FEW) 04/10/17 14:17 Urine Bacteria FEW /hpf (NONE SEEN) 04/10/17 14:17 Urine Mucus FEW /lpf (FEW) 04/10/17 14:17 Gentamicin Peak 7.1 ug/ml (4.0-8.0) 04/12/17 15:59 Gentamicin Trough 1.0 ug/ml (0.2-2.0) 04/12/17 13:10 Carbamazepine 5.4 ug/ml (4.0-12.0) 04/10/17 12:59 - Physical Exam Vitals and I&O: Vital Signs Temp 98 F 04/13/17 04:00 Pulse 66 04/13/17 07:28 Resp 18 04/13/17 07:28 BP 89/55 04/13/17 04:00 Pulse Ox 99 04/13/17 07:28 Intake & Output 04/12/17 04/13/17 04/13/17 18:59 06:59 18:59 Intake Total 1102 1750 Balance 1102 1750 Weight (lbs) 79 lb 8 oz 79 lb 8 oz Intake: Intake, IV Amount 1102 1050 Aztreonam 1 gm In 50 Dextrose 5% 50 ml @ 100 mls/hr IV Q8HR [facility] Rx#: [id number] D5-0.45NS 1,000 ml @ 70 1000 1000 mls/hr IV .[id number] [facility] Rx #:[id number] Gentamicin 80 mg In 102 Sodium Chloride 0.9% 100 ml @ 200 mls/hr IV Q12H [facility] Rx#:[id number] Tube Feeding 500 Other 200 Other: # Voids 2 # Bowel Movements 2 Stool Characteristics Soft Soft Liquid Liquid Active Medications: Current Medications Acetaminophen (Tylenol 650mg/20.3ml Suspension) 650 mg GT Q4H PRN PRN Reason: mild pain or >100.1 Stop: 06/10/17 15:07 Last Admin: 04/12/17 20:52 Dose: 650 mg Albuterol Sulfate (Albuterol 2.5mg/3ml Neb Ud) 2.5 mg IH Q2HR PRN PRN Reason: Shortness of Breath or Wheeze Stop: 06/10/17 15:10 Ascorbic Acid (Vitamin C) 500 mg GT DAILY [facility] Stop: 06/11/17 08:59 Last Admin: 04/12/17 08:57 Dose: 500 mg Aspirin (Aspirin Chewable) 81 mg GT DAILY [facility] Stop: 06/11/17 08:59 Last Admin: 04/12/17 08:57 Dose: 81 mg Benztropine Mesylate (Cogentin) 1 mg GT BID [facility] Stop: 06/10/17 16:59 Last Admin: 04/12/17 17:16 Dose: 1 mg Calcium Carbonate (Tums) 500 mg GT TID [facility] Stop: 06/10/17 15:59 Last Admin: 04/12/17 20:52 Dose: 500 mg Carbamazepine (Tegretol) 200 mg GT TID [facility] PRN Reason: Protocol Stop: 06/10/17 20:59 Last Admin: 04/12/17 20:52 Dose: 200 mg Cholecalciferol (Vitamin D3) 1,000 iu GT DAILY [facility] Stop: 06/11/17 08:59 Last Admin: 04/12/17 08:57 Dose: 1,000 iu Ferrous Sulfate (Iron) 300 mg GT BID [facility] Stop: 06/10/17 16:59 Last Admin: 04/12/17 17:16 Dose: 300 mg Glycopyrrolate (Robinul) 2 mg GT DAILY [facility] Stop: 06/11/17 08:59 Last Admin: 04/12/17 08:57 Dose: 2 mg Guaifenesin (Robitussin) 100 mg PO Q4H PRN PRN Reason: Cough or Congestion Stop: 06/10/17 15:10 Gentamicin Sulfate 80 mg/ (Sodium Chloride) 102 mls @ 200 mls/hr IV Q12H [facility] Stop: 06/10/17 13:59 Last Admin: 04/13/17 01:50 Dose: 200 mls/hr Dextrose/Sodium Chloride (D5-0.45ns) 1,000 mls @ 70 mls/hr IV .[id number] [facility] Stop: 06/10/17 15:14 Last Admin: 04/13/17 07:02 Dose: 70 mls/hr Aztreonam 1 gm/ Dextrose 50 mls @ 100 mls/hr IV Q8HR [facility] Stop: 06/11/17 20:59 Last Admin: 04/13/17 05:27 Dose: 100 mls/hr Ibuprofen (Motrin) 400 mg GT Q6H PRN PRN Reason: Pain (Mild) IF APAP INEFFECTIV Ipratropium [place] (Atrovent Neb 0.5mg/2.5ml) 0.5 mg HHN Q3H PRN PRN Reason: Shortness of Breath Levetiracetam (Keppra) 1,000 mg GT BID [facility] Stop: 06/10/17 16:59 Last Admin: 04/12/17 17:16 Dose: 1,000 mg Loperamide HCl (Imodium 1mg/5ml Suspension) 2 mg GT Q6H PRN PRN Reason: Diarrhea Lorazepam (Ativan) 0.5 mg IV Q4HR PRN; Protocol PRN Reason: Seizure Stop: 06/10/17 15:10 Magnesium Hydroxide (Milk Of Magnesia) 30 ml GT PRN PRN PRN Reason: no BM after 3 days Stop: 06/10/17 15:07 Metoprolol Tartrate (Lopressor) 25 mg GT DAILY [facility] Stop: 06/10/17 16:59 Last Admin: 04/12/17 08:58 Dose: Not Given Miscellaneous (Gentamicin Iv Per Pharmacy) 1 ea MC PRN [facility] Stop: 06/10/17 12:44 Pantoprazole Sodium (Protonix) 40 mg GT DAILY [facility] Stop: 06/10/17 16:59 Last Admin: 04/12/17 08:57 Dose: 40 mg Polyethylene Glycol (Miralax) 17 gm GT DAILY [facility] Stop: 06/11/17 08:59 Last Admin: 04/12/17 09:27 Dose: Not Given Potassium Chloride (Potassium Chloride Elixir) 20 meq GT DAILY [facility] Stop: 06/11/17 08:59 Last Admin: 04/12/17 08:56 Dose: 20 meq Sodium Phosphate (Fleet Enema) 135 ml RC DAILY PRN PRN Reason: Constipation Stop: 06/10/17 15:07 General: weak, alert HEENT: NC/AT, PERRLA Neck: Supple Lungs: CTAB Cardiovascular: RRR, Normal S1, Normal S2, without murmur Abdomen: soft, non-tender, non-distended Extremities: excoriation Neurological: alert - Procedures Procedures: Procedures Procedure Code Date CHANGE FEEDING DEVICE IN UP INTEST TRACT, SIZE MIXER APPROACH [id number] 09/03/16 INSERT INDWELLING CATH 57.94 12/31/09 INSERT PICC CATH 39445 05/18/14 INSERTION OF FEEDING DEVICE INTO STOMACH, ENDO [id number] 10/11/16 INSERTION OF INFUSION DEVICE INTO R ATRIUM, PERC APPROACH [id number] 10/11/16 VENOUS CATHETERIZATION NEC 38.93 05/18/14 Internal Medicine Assmt/Plan - Assessment Assessment: acute uti seizures cerebral palsy spastic quadriplegia GERD microcephaly blindness - Plan Plan: continue empiric ivabx am labs ivf for hydration seizure precautions Nutritional Asmnt/Malnutr-PDOC - Dietary Evaluation Malnutrition Findings (Please click <Entered> for more info): Nutritional Asmnt/Malnutrition Start: 04/11/17 12: 57 Text: Status: Complete Freq: Document 04/11/17 15:31 [facility] (Rec: 04/11/17 16:01 [facility] [email or web address]) Nutritional Asmnt/Malnutrition Patient General Information Nutritional Screening Consult Diagnosis Seizure Pertinent Medical Hx/Surgical Hx HTN, cerebral palsy, spastic quadriplegia, GERD, microcephaly, blindness, s/p bilateral pneumonia, PEG Subjective Information Nutrition Consult for Marc 12 and gtube received and completed. Pt is a 41-year-old female from [facility] admitted with chief complaint of seizure. Pt is nonverbal and a poor historian . Tube feeding off during time of visit at 1346, per order. Pt appears well nourished with no signs of muscle or fat depletion. Teeth intact. Per chart, pt has had downward wt trend since June 2016 (88.8 #). Last wt measured at facility was 81.8# on 04/01. Current Diet Order/ Nutrition Support Fibersource HN at 53 ml/hr x 16 hours =1018kcal,46gm protein,687 ml H2O Patient / S.O Can't verbalize diet edu Pertinent Medications Vitamin C, Gentamicin, Levaquin, KCl Elixir Pertinent Labs Reviewed Nutritional Hx/Data Height 4 ft 7 in Height (Calculated Centimeters) 139.7 Current Weight (lbs) 81 lb 8 oz Weight (Calculated Kilograms) 37.0 Weight (Calculated Grams) 18137.8 Usual body Weight (lbs) 88 % Usual Body Weight 93 [place] Body Weight N/A Recent Weight Change Yes Weight Status Approriate GI Symptoms GI Symptoms None Difficult in: Chewing Swallowing Food Allergies No Usual diet at home Jevity 1.2 at 53 ml/hr x 16 hours between 6718-8110 Skin Integrity/Comment: Marc 14. Rash to abdomen but no skin breakdown. Estimated Nutritional Goals Calories/Kcals/Kg Using UBW 40 kg for wt maintenance: Kcals Calculated 2158-8562 kcals/day (25-30 kcals/k) Protein g/kg: Using UBW 40 kg with consideration of bedbound status: Protein Calculated 40-52 gm/day (1-1.3 gm/kg) Fluid: ml 3984-4643 ml/day (1 ml/kcal) Nutritional Problem 1. Problem Problem Unintentional wt loss related to Etiology possible imbalance of energy intake vs expenditure as evidenced by Signs/Symptoms: 5.6% body wt loss in 6 months. Malnutrition Alert Interpretation of weight loss Non-Severe up to 10% in 6 months (mod) Protein-Calorie Malnutrition N/A Is there a minimum of two criteria No selected? Query Text:Check all the applicable criteria. A minimum of two criteria are recommended for diagnosis of either severe or non-severe malnutrition. Malnutrition Related to Morbid Obesity Malnutrition related to morbid obesity No Intervention/Recommendation Comments 1. Recommend increase Fibersource HN to 63 ml/hr x 16 hours to run between 1600- 0800 to meet higher ends of estimated nutritional needs to prevent further wt loss. Tube feeding to provide 1210 kcals , 52 gm protein, and 816 ml free water per day. Expected Outcomes/Goals Expected Outcomes/Goals Provide pt with 100% of estimated nutritional needs to wt maintenance.
[2017-04-13] MEDS: Levetiracetam 500 mg/5mL 5mL UDC GT SCH ×2 (09:26→17:23)
[2017-04-13] MEDS: Potassium Chloride Elixir 20 mEq /15 mL UDC GT SCH (09:27)
[2017-04-13] MEDS: Ascorbic Acid 500 mg/5 mL UDC GT SCH (09:27)
[2017-04-13] MEDS: Pantoprazole 40 mg/Packet GT SCH (09:27)
[2017-04-13] MEDS: POLYETHYLENE GLYCOL 3350 17 GM PACK GT SCH (09:27)
[2017-04-13] MEDS: Ferrous Sulfate 300 MG/5 ML UDC GT SCH ×2 (09:27→17:23)
[2017-04-13] MEDS: Benztropine 1 MG TAB GT SCH ×2 (09:28→17:23)
[2017-04-13] MEDS: Aspirin 81mg Chewable Tab GT SCH (09:28)
[2017-04-13] MEDS: carBAMazepine 200 mg/10 mL UDC GT SCH ×3 (09:28→21:31)
[2017-04-13] MEDS: Multivitamin w/ Minerals Tab GT SCH (09:28)
[2017-04-13 16:48] LABS: HEMATOCRIT 35.2 % (35.0-45.0); HEMOGLOBIN 11.9 gm/dL (11.7-15.5); MEAN CELL VOLUME 87.4 fl (81-100); MEAN CORPUSCULAR HEMOGLOBIN 29.4 pg (27.0-31.0); MEAN CORPUSCULAR HGB CONC 33.7 pg (28.0-36.0); MEAN PLATELET VOLUME 9.3 fl; RED BLOOD COUNT 4.03 Mil/cmm (3.80-5.10); RED CELL DISTRIBUTION WIDTH 12.2 % (11.5-20.0); WHITE BLOOD COUNT 10.2 Th/cmm (4.8-10.8)
[2017-04-13 16:52] LABS: PLATELET COUNT 241 Th/cmm (150-400)
[2017-04-13 17:02] LABS: ANION GAP 8.6 (7.0-16.0); BUN - UREA NITROGEN 6 mg/dL (7-25); CALCIUM SERUM 8.7 mg/dL (8.6-10.3); CARBON DIOXIDE 22.3 mEq/L (21.0-31.0); CHLORIDE 107 mEq/L (98-107); CREATININE - SERUM 0.5 mg/dL (0.6-1.2); GLUCOSE 104 mg/dL (70-105); POTASSIUM SERUM 3.9 mEq/L (3.5-5.1); SODIUM SERUM 134 mEq/L (136-145)
--- NOTE | 2017-04-13 17:04 | Infectious Disease Prog Note ---
Infectious Disease Subjective - Review of Systems Service Date: 04/13/17 Subjective: cc uti hpi pt wbc normalized ros no fevr o/e blind vss cjest clear abd soft ext pulse dx uti gent Infectious Disease Objective - Results Result Diagrams: 04/13/17 16:39 04/12/17 07:00 Recent Labs: Laboratory Last Values WBC 10.2 Th/cmm (4.8-10.8) 04/13/17 16:39 RBC 4.03 Mil/cmm (3.80-5.10) 04/13/17 16:39 Hgb 11.9 gm/dL (11.7-15.5) 04/13/17 16:39 Hct 35.2 % (35.0-45.0) 04/13/17 16:39 MCV 87.4 fl (81-100) 04/13/17 16:39 MCH 29.4 pg (27.0-31.0) 04/13/17 16:39 MCHC Differential 33.7 pg (28.0-36.0) 04/13/17 16:39 RDW 12.2 % (11.5-20.0) 04/13/17 16:39 Plt Count 241 Th/cmm (150-400) D 04/13/17 16:39 MPV 9.3 fl 04/13/17 16:39 Neutrophils % 65.9 % (40.0-80.0) 04/12/17 07:00 Band Neutrophils % 3 % (0-10) 04/10/17 12:59 Lymphocytes % 20.9 % (20.0-50.0) 04/12/17 07:00 Monocytes % 10.5 % (2.0-10.0) H 04/12/17 07:00 Eosinophils % 2.1 % (0.0-5.0) 04/12/17 07:00 Basophils % 0.6 % (0.0-2.0) 04/12/17 07:00 Neutrophils (Manual) 88 % (40-80) H 04/10/17 12:59 Lymphocytes 3 % (20-50) L 04/10/17 12:59 Monocytes 5 % (2-10) 04/10/17 12:59 Eosinophils 1 % (0-5) 04/10/17 12:59 Platelet Estimate ADEQUATE (NORMAL) 04/10/17 12:59 Platelet Morphology NORMAL (NORMAL) 04/10/17 12:59 RBC Morph Micro Appear NORMAL (NORMAL) 04/10/17 12:59 Sodium 134 mEq/L (136-145) L 04/12/17 07:00 Potassium 3.4 mEq/L (3.5-5.1) L 04/12/17 07:00 Chloride 107 mEq/L (98-107) 04/12/17 07:00 Carbon Dioxide 22.4 mEq/L (21.0-31.0) 04/12/17 07:00 Anion Gap 8.0 (7.0-16.0) 04/12/17 07:00 BUN 8 mg/dL (7-25) 04/12/17 07:00 Creatinine 0.5 mg/dL (0.6-1.2) L 04/12/17 07:00 Est GFR ( Amer) > 60.0 ml/min (>90) 04/12/17 07:00 Est GFR (Non-Af Amer) > 60.0 ml/min 04/12/17 07:00 BUN/Creatinine Ratio 16.0 04/12/17 07:00 Glucose 117 mg/dL (70-105) H 04/12/17 07:00 Whole Bld Lactic Acid 1.45 mmol/L (0.60-1.99) 04/10/17 12:59 Calcium 8.6 mg/dL (8.6-10.3) 04/12/17 07:00 Urine Source CATH 04/10/17 14:17 Urine Color YELLOW 04/10/17 14:17 Urine Clarity SLIGHT CLOUDY (CLEAR) 04/10/17 14:17 Urine pH 7.0 (4.6 - 8.0) 04/10/17 14:17 Ur Specific [place] 1.020 (1.005-1.030) 04/10/17 14:17 Urine Protein 100 mg/dL (NEGATIVE) H 04/10/17 14:17 Urine Glucose (UA) NEGATIVE mg/dL (NEGATIVE) 04/10/17 14:17 Urine Ketones NEGATIVE mg/dL (NEGATIVE) 04/10/17 14:17 Urine Blood NEGATIVE (NEGATIVE) 04/10/17 14:17 Urine Nitrate NEGATIVE (NEGATIVE) 04/10/17 14: Urine Bilirubin NEGATIVE (NEGATIVE) 04/10/17 14:17 Urine Urobilinogen 0.2 E.U./dL (0.2 - 1.0) 04/10/17 14:17 Ur Leukocyte Esterase TRACE (NEGATIVE) H 04/10/17 14:17 Urine RBC 0-2 /hpf (0-5) 04/10/17 14:17 Urine WBC 25-50 /hpf (0-5) H 04/10/17 14:17 Ur Epithelial Cells FEW /lpf (FEW) 04/10/17 14:17 Urine Bacteria FEW /hpf (NONE SEEN) 04/10/17 14:17 Urine Mucus FEW /lpf (FEW) 04/10/17 14:17 Gentamicin Peak 7.1 ug/ml (4.0-8.0) 04/12/17 15:59 Gentamicin Trough 1.0 ug/ml (0.2-2.0) 04/12/17 13:10 Carbamazepine 5.4 ug/ml (4.0-12.0) 04/10/17 12:59 - Physical Exam Vitals and I&O: Vital Signs Temp 97.2 F 04/13/17 16:00 Pulse 89 04/13/17 16:00 Resp 18 04/13/17 16:00 BP 102/62 04/13/17 16:00 Pulse Ox 97 04/13/17 16:00 Intake & Output 04/12/17 04/13/17 04/13/17 18:59 06:59 18:59 Intake Total 1102 1800 50 Balance 1102 1800 50 Weight (lbs) 36.061 kg 36.061 kg 36.061 kg Intake: Intake, IV Amount 1102 1100 50 Aztreonam 1 gm In 100 50 Dextrose 5% 50 ml @ 100 mls/hr IV Q8HR [facility] Rx#: [id number] D5-0.45NS 1,000 ml @ 70 1000 1000 mls/hr IV .[id number] [facility] Rx #:[id number] Gentamicin 80 mg In 102 Sodium Chloride 0.9% 100 ml @ 200 mls/hr IV Q12H [facility] Rx#:[id number] Tube Feeding 500 Other 200 Other: # Voids 2 # Bowel Movements 2 Stool Characteristics Soft Soft Liquid Liquid Active Medications: Current Medications Acetaminophen (Tylenol 650mg/20.3ml Suspension) 650 mg GT Q4H PRN PRN Reason: mild pain or >100.1 Stop: 06/10/17 15:07 Last Admin: 04/13/17 12:29 Dose: 650 mg Albuterol Sulfate (Albuterol 2.5mg/3ml Neb Ud) 2.5 mg IH Q2HR PRN PRN Reason: Shortness of Breath or Wheeze Stop: 06/10/17 15:10 Ascorbic Acid (Vitamin C) 500 mg GT DAILY [facility] Stop: 06/11/17 08:59 Last Admin: 04/13/17 09:27 Dose: 500 mg Aspirin (Aspirin Chewable) 81 mg GT DAILY [facility] Stop: 06/11/17 08:59 Last Admin: 04/13/17 09:28 Dose: 81 mg Benztropine Mesylate (Cogentin) 1 mg GT BID [facility] Stop: 06/10/17 16:59 Last Admin: 04/13/17 09:28 Dose: 1 mg Calcium Carbonate (Tums) 500 mg GT TID [facility] Stop: 06/10/17 15:59 Last Admin: 04/13/17 13:56 Dose: 500 mg Carbamazepine (Tegretol) 200 mg GT TID [facility] PRN Reason: Protocol Stop: 06/10/17 20:59 Last Admin: 04/13/17 13:56 Dose: 200 mg Cholecalciferol (Vitamin D3) 1,000 iu GT DAILY [facility] Stop: 06/11/17 08:59 Last Admin: 04/13/17 09:28 Dose: 1,000 iu Ferrous Sulfate (Iron) 300 mg GT BID [facility] Stop: 06/10/17 16:59 Last Admin: 04/13/17 09:27 Dose: 300 mg Glycopyrrolate (Robinul) 2 mg GT DAILY [facility] Stop: 06/11/17 08:59 Last Admin: 04/13/17 09:28 Dose: 2 mg Guaifenesin (Robitussin) 100 mg PO Q4H PRN PRN Reason: Cough or Congestion Stop: 06/10/17 15:10 Gentamicin Sulfate 80 mg/ (Sodium Chloride) 102 mls @ 200 mls/hr IV Q12H [facility] Stop: 06/10/17 13:59 Last Admin: 04/13/17 01:50 Dose: 200 mls/hr Dextrose/Sodium Chloride (D5-0.45ns) 1,000 mls @ 70 mls/hr IV .[id number] [facility] Stop: 06/10/17 15:14 Last Admin: 04/13/17 07:02 Dose: 70 mls/hr Aztreonam 1 gm/ Dextrose 50 mls @ 100 mls/hr IV Q8HR [facility] Stop: 06/11/17 20:59 Last Infusion: 04/13/17 13:15 Dose: Infused Ibuprofen (Motrin) 400 mg GT Q6H PRN PRN Reason: Pain (Mild) IF APAP INEFFECTIV Ipratropium [place] (Atrovent Neb 0.5mg/2.5ml) 0.5 mg HHN Q3H PRN PRN Reason: Shortness of Breath Levetiracetam (Keppra) 1,000 mg GT BID [facility] Stop: 06/10/17 16:59 Last Admin: 04/13/17 09:26 Dose: 1,000 mg Loperamide HCl (Imodium 1mg/5ml Suspension) 2 mg GT Q6H PRN PRN Reason: Diarrhea Lorazepam (Ativan) 0.5 mg IV Q4HR PRN; Protocol PRN Reason: Seizure Stop: 06/10/17 15:10 Magnesium Hydroxide (Milk Of Magnesia) 30 ml GT PRN PRN PRN Reason: no BM after 3 days Stop: 06/10/17 15:07 Metoprolol Tartrate (Lopressor) 25 mg GT DAILY [facility] Stop: 06/10/17 16:59 Last Admin: 04/13/17 09:29 Dose: Not Given Miscellaneous (Gentamicin Iv Per Pharmacy) 1 ea MC PRN [facility] Stop: 06/10/17 12:44 Pantoprazole Sodium (Protonix) 40 mg GT DAILY [facility] Stop: 06/10/17 16:59 Last Admin: 04/13/17 09:27 Dose: 40 mg Polyethylene Glycol (Miralax) 17 gm GT DAILY [facility] Stop: 06/11/17 08:59 Last Admin: 04/13/17 09:27 Dose: 17 gm Potassium Chloride (Potassium Chloride Elixir) 20 meq GT DAILY [facility] Stop: 06/11/17 08:59 Last Admin: 04/13/17 09:27 Dose: 20 meq Sodium Phosphate (Fleet Enema) 135 ml RC DAILY PRN PRN Reason: Constipation Stop: 06/10/17 15:07 - Procedures Procedures: Procedures Procedure Code Date CHANGE FEEDING DEVICE IN UP INTEST TRACT, PRINTED [employer] 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 APPROACH [id number] 09/03/16 INSERT INDWELLING CATH 57.94 12/31/09 INSERT PICC CATH [id number] 05/18/14 INSERTION OF FEEDING DEVICE INTO STOMACH, ENDO [id number] 10/11/16 INSERTION OF INFUSION DEVICE INTO R ATRIUM, PERC APPROACH 95P461H 10/11/16 VENOUS CATHETERIZATION NEC 38.93 05/18/14 Infectious Disease Assmt/Plan - Problem List Patient Problems: All Active Problems Seizure (Active 06/15/15) R56.9 Allergen injection reaction (Acute) T80.89XA Observed seizure-like activity (Acute) R56.9 Systemic inflammatory response syndrome (Acute) R65.10 Blindness - both eyes (Chronic) H54.0 Cerebral palsy (Chronic) G80.9 Microcephalus (Chronic) Q02 spastic quadriplegia (Chronic) Nutritional Asmnt/Malnutr-PDOC - Dietary Evaluation Malnutrition Findings (Please click <Entered> for more info): Nutritional Asmnt/Malnutrition Start: 04/11/17 12: 57 Text: Status: Complete Freq: Document 04/11/17 15:31 [facility] (Rec: 04/11/17 16:01 [facility] [id number]) Nutritional Asmnt/Malnutrition Patient General Information Nutritional Screening Consult Diagnosis Seizure Pertinent Medical Hx/Surgical Hx HTN, cerebral palsy, spastic quadriplegia, GERD, microcephaly, blindness, s/p bilateral pneumonia, PEG Subjective Information Nutrition Consult for Marc 12 and gtube received and completed. Pt is a 41-year-old female from [facility] admitted with chief complaint of seizure. Pt is nonverbal and a poor historian . Tube feeding off during time of visit at 1346, per order. Pt appears well nourished with no signs of muscle or fat depletion. Teeth intact. Per chart, pt has had downward wt trend since June 2016 (88.8 #). Last wt measured at facility was 81.8# on 04/01. Current Diet Order/ Nutrition Support Fibersource HN at 53 ml/hr x 16 hours =1018kcal,46gm protein,687 ml H2O Patient / S.O Can't verbalize diet edu Pertinent Medications Vitamin C, Gentamicin, Levaquin, KCl Elixir Pertinent Labs Reviewed Nutritional Hx/Data Height 1.4 m Height (Calculated Centimeters) 139.7 Current Weight (lbs) 36.968 kg Weight (Calculated Kilograms) 37.0 Weight (Calculated Grams) 51343.8 Usual body Weight (lbs) 88 % Usual Body Weight 93 [place] Body Weight N/A Recent Weight Change Yes Weight Status Approriate GI Symptoms GI Symptoms None Difficult in: Chewing Swallowing Food Allergies No Usual diet at home Jevity 1.2 at 53 ml/hr x 16 hours between 4407-1419 Skin Integrity/Comment: Marc 14. Rash to abdomen but no skin breakdown. Estimated Nutritional Goals Calories/Kcals/Kg Using UBW 40 kg for wt maintenance: Kcals Calculated 9293-7760 kcals/day (25-30 kcals/k) Protein g/kg: Using UBW 40 kg with consideration of bedbound status: Protein Calculated 40-52 gm/day (1-1.3 gm/kg) Fluid: ml 8323-3112 ml/day (1 ml/kcal) Nutritional Problem 1. Problem Problem Unintentional wt loss related to Etiology possible imbalance of energy intake vs expenditure as evidenced by Signs/Symptoms: 5.6% body wt loss in 6 months. Malnutrition Alert Interpretation of weight loss Non-Severe up to 10% in 6 months (mod) Protein-Calorie Malnutrition N/A Is there a minimum of two criteria No selected? Query Text:Check all the applicable criteria. A minimum of two criteria are recommended for diagnosis of either severe or non-severe malnutrition. Malnutrition Related to Morbid Obesity Malnutrition related to morbid obesity No Intervention/Recommendation Comments 1. Recommend increase Fibersource HN to 63 ml/hr x 16 hours to run between 1600- 0800 to meet higher ends of estimated nutritional needs to prevent further wt loss. Tube feeding to provide 1210 kcals , 52 gm protein, and 816 ml free water per day. Expected Outcomes/Goals Expected Outcomes/Goals Provide pt with 100% of estimated nutritional needs to wt maintenance.
[2017-04-13 17:09] LABS: BASOPHIL 2 % (0-3); EOSINOPHIL 6 % (0-5); NEUTROPHILS 64 % (40-80); PLATELET ESTIMATE ADEQUATE (NORMAL); TOTAL CELLS COUNTED 100
[2017-04-14 07:08] LABS: % BASOPHILS 0.6 % (0.0-2.0); % EOSINOPHILS 4.9 % (0.0-5.0); % LYMPHOCYTES 24.5 % (20.0-50.0); % MONOCYTES 10.5 % (2.0-10.0); % NEUTROPHILS 59.5 % (40.0-80.0); HEMATOCRIT 35.6 % (35.0-45.0); HEMOGLOBIN 12.1 gm/dL (11.7-15.5); MEAN CELL VOLUME 87.3 fl (81-100); MEAN CORPUSCULAR HEMOGLOBIN 29.6 pg (27.0-31.0); MEAN CORPUSCULAR HGB CONC 33.9 pg (28.0-36.0); MEAN PLATELET VOLUME 9.5 fl; NEUTROPHILE ABSOLUTE 4.2 Th/cmm (1.8-8.0); PLATELET COUNT 220 Th/cmm (150-400); RED BLOOD COUNT 4.08 Mil/cmm (3.80-5.10); RED CELL DISTRIBUTION WIDTH 12.5 % (11.5-20.0)
[2017-04-14 07:36] LABS: WHITE BLOOD COUNT 7.2 Th/cmm (4.8-10.8)
[2017-04-14 07:44] LABS: ANION GAP 8.7 (7.0-16.0); BUN - UREA NITROGEN 6 mg/dL (7-25); CALCIUM SERUM 8.6 mg/dL (8.6-10.3); CARBON DIOXIDE 23.1 mEq/L (21.0-31.0); CHLORIDE 108 mEq/L (98-107); CREATININE - SERUM 0.5 mg/dL (0.6-1.2); GLUCOSE 102 mg/dL (70-105); POTASSIUM SERUM 3.8 mEq/L (3.5-5.1); SODIUM SERUM 136 mEq/L (136-145)
[2017-04-14] MEDS: Multivitamin w/ Minerals Tab GT SCH (09:08)
[2017-04-14] MEDS: Aspirin 81mg Chewable Tab GT SCH (09:08)
[2017-04-14] MEDS: carBAMazepine 200 mg/10 mL UDC GT SCH ×2 (09:09→14:03)
[2017-04-14] MEDS: Pantoprazole 40 mg/Packet GT SCH (09:09)
[2017-04-14] MEDS: Benztropine 1 MG TAB GT SCH ×2 (09:09→17:11)
[2017-04-14] MEDS: POLYETHYLENE GLYCOL 3350 17 GM PACK GT SCH (09:09)
[2017-04-14] MEDS: Ferrous Sulfate 300 MG/5 ML UDC GT SCH ×2 (09:09→17:10)
[2017-04-14] MEDS: Potassium Chloride Elixir 20 mEq /15 mL UDC GT SCH (09:10)
[2017-04-14] MEDS: Levetiracetam 500 mg/5mL 5mL UDC GT SCH ×2 (09:11→17:10)
[2017-04-14] MEDS: Ascorbic Acid 500 mg/5 mL UDC GT SCH (09:11)
--- NOTE | 2017-04-14 12:29 | Internal Medicine Prog Note ---
Internal Medicine Subjective - Subjective Service Date: 04/14/17 Patient seen and examined:: with staff Patient is:: awake, non-verbal Per staff patient has:: no adverse event, tolerating meds Internal Medicine Objective - Results Result Diagrams: 04/14/17 06:30 04/14/17 06:30 Recent Labs: Laboratory Last Values WBC 7.2 Th/cmm (4.8-10.8) D 04/14/17 06:30 RBC 4.08 Mil/cmm (3.80-5.10) 04/14/17 06:30 Hgb 12.1 gm/dL (11.7-15.5) 04/14/17 06:30 Hct 35.6 % (35.0-45.0) 04/14/17 06:30 MCV 87.3 fl (81-100) 04/14/17 06:30 MCH 29.6 pg (27.0-31.0) 04/14/17 06:30 MCHC Differential 33.9 pg (28.0-36.0) 04/14/17 06:30 RDW 12.5 % (11.5-20.0) 04/14/17 06:30 Plt Count 220 Th/cmm (150-400) 04/14/17 06:30 MPV 9.5 fl 04/14/17 06:30 Neutrophils % 59.5 % (40.0-80.0) 04/14/17 06:30 Band Neutrophils % 3 % (0-10) 04/10/17 12:59 Lymphocytes % 24.5 % (20.0-50.0) 04/14/17 06:30 Monocytes % 10.5 % (2.0-10.0) H 04/14/17 06:30 Eosinophils % 4.9 % (0.0-5.0) 04/14/17 06:30 Basophils % 0.6 % (0.0-2.0) 04/14/17 06:30 Neutrophils (Manual) 64 % (40-80) 04/13/17 16:39 Lymphocytes 24 % (20-50) 04/13/17 16:39 Monocytes 4 % (2-10) 04/13/17 16:39 Eosinophils 6 % (0-5) H 04/13/17 16:39 Basophils 2 % (0-3) 04/13/17 16:39 Platelet Estimate ADEQUATE (NORMAL) 04/13/17 16:39 Platelet Morphology NORMAL (NORMAL) 04/10/17 12:59 RBC Morph Micro Appear NORMAL (NORMAL) 04/10/17 12:59 Sodium 136 mEq/L (136-145) 04/14/17 06:30 Potassium 3.8 mEq/L (3.5-5.1) 04/14/17 06:30 Chloride 108 mEq/L (98-107) H 04/14/17 06:30 Carbon Dioxide 23.1 mEq/L (21.0-31.0) 04/14/17 06:30 Anion Gap 8.7 (7.0-16.0) 04/14/17 06:30 BUN 6 mg/dL (7-25) L 04/14/17 06:30 Creatinine 0.5 mg/dL (0.6-1.2) L 04/14/17 06:30 Est GFR ( Amer) > 60.0 ml/min (>90) 04/14/17 06:30 Est GFR (Non-Af Amer) > 60.0 ml/min 04/14/17 06:30 BUN/Creatinine Ratio 12.0 04/14/17 06:30 Glucose 102 mg/dL (70-105) 04/14/17 06:30 Whole Bld Lactic Acid 1.45 mmol/L (0.60-1.99) 04/10/17 12:59 Calcium 8.6 mg/dL (8.6-10.3) 04/14/17 06:30 Urine Source CATH 04/10/17 14:17 Urine Color YELLOW 04/10/17 14:17 Urine Clarity SLIGHT CLOUDY (CLEAR) 04/10/17 14:17 Urine pH 7.0 (4.6 - 8.0) 04/10/17 14:17 Ur Specific [place] 1.020 (1.005-1.030) 04/10/17 14:17 Urine Protein 100 mg/dL (NEGATIVE) H 04/10/17 14:17 Urine Glucose (UA) NEGATIVE mg/dL (NEGATIVE) 04/10/17 14:17 Urine Ketones NEGATIVE mg/dL (NEGATIVE) 04/10/17 14:17 Urine Blood NEGATIVE (NEGATIVE) 04/10/17 14: Urine Nitrate NEGATIVE (NEGATIVE) 04/10/17 14:17 Urine Bilirubin NEGATIVE (NEGATIVE) 04/10/17 14:17 Urine Urobilinogen 0.2 E.U./dL (0.2 - 1.0) 04/10/17 14:17 Ur Leukocyte Esterase TRACE (NEGATIVE) H 04/10/17 14:17 Urine RBC 0-2 /hpf (0-5) 04/10/17 14:17 Urine WBC 25-50 /hpf (0-5) H 04/10/17 14:17 Ur Epithelial Cells FEW /lpf (FEW) 04/10/17 14:17 Urine Bacteria FEW /hpf (NONE SEEN) 04/10/17 14:17 Urine Mucus FEW /lpf (FEW) 04/10/17 14:17 Gentamicin Peak 7.1 ug/ml (4.0-8.0) 04/12/17 15:59 Gentamicin Trough 1.0 ug/ml (0.2-2.0) 04/12/17 13:10 Carbamazepine 5.4 ug/ml (4.0-12.0) 04/10/17 12:59 - Physical Exam Vitals and I&O: Vital Signs Temp 97.6 F 04/14/17 00:00 Pulse 96 04/14/17 09:08 Resp 18 04/14/17 08:13 BP 110/72 04/14/17 09:08 Pulse Ox 98 04/14/17 07:35 Intake & Output 04/13/17 04/14/17 04/14/17 18:59 06:59 18:59 Intake Total 952 1390 Balance 952 1390 Weight (lbs) 79 lb 8 oz 78 lb Intake: Intake, IV Amount 152 1000 Aztreonam 1 gm In 50 Dextrose 5% 50 ml @ 100 mls/hr IV Q8HR [facility] Rx#: [id number] D5-0.45NS 1,000 ml @ 70 1000 mls/hr IV .[id number] [facility] Rx #:[id number] Gentamicin 80 mg In 102 Sodium Chloride 0.9% 100 ml @ 200 mls/hr IV Q12H [facility] Rx#:[id number] Tube Feeding 600 190 Other 200 200 Other: # Voids 3 3 # Bowel Movements 1 0 Active Medications: Current Medications Acetaminophen (Tylenol 650mg/20.3ml Suspension) 650 mg GT Q4H PRN PRN Reason: mild pain or >100.1 Stop: 06/10/17 15:07 Last Admin: 04/13/17 21:38 Dose: 650 mg Albuterol Sulfate (Albuterol 2.5mg/3ml Neb Ud) 2.5 mg IH Q2HR PRN PRN Reason: Shortness of Breath or Wheeze Stop: 06/10/17 15:10 Ascorbic Acid (Vitamin C) 500 mg GT DAILY [facility] Stop: 06/11/17 08:59 Last Admin: 04/14/17 09:11 Dose: 500 mg Aspirin (Aspirin Chewable) 81 mg GT DAILY [facility] Stop: 06/11/17 08:59 Last Admin: 04/14/17 09:08 Dose: 81 mg Benztropine Mesylate (Cogentin) 1 mg GT BID [facility] Stop: 06/10/17 16:59 Last Admin: 04/14/17 09:09 Dose: 1 mg Calcium Carbonate (Tums) 500 mg GT TID [facility] Stop: 06/10/17 15:59 Last Admin: 04/14/17 09:09 Dose: 500 mg Carbamazepine (Tegretol) 200 mg GT TID [facility] PRN Reason: Protocol Stop: 06/10/17 20:59 Last Admin: 04/14/17 09:09 Dose: 200 mg Cholecalciferol (Vitamin D3) 1,000 iu GT DAILY [facility] Stop: 06/11/17 08:59 Last Admin: 04/14/17 09:08 Dose: 1,000 iu Ferrous Sulfate (Iron) 300 mg GT BID [facility] Stop: 06/10/17 16:59 Last Admin: 04/14/17 09:09 Dose: 300 mg Glycopyrrolate (Robinul) 2 mg GT DAILY [facility] Stop: 06/11/17 08:59 Last Admin: 04/14/17 09:09 Dose: 2 mg Guaifenesin (Robitussin) 100 mg PO Q4H PRN PRN Reason: Cough or Congestion Stop: 06/10/17 15:10 Gentamicin Sulfate 80 mg/ (Sodium Chloride) 102 mls @ 200 mls/hr IV Q12H [facility] Stop: 06/10/17 13:59 Last Admin: 04/14/17 01:49 Dose: 200 mls/hr Dextrose/Sodium Chloride (D5-0.45ns) 1,000 mls @ 70 mls/hr IV .[id number] [facility] Stop: 06/10/17 15:14 Last Admin: 04/13/17 23:33 Dose: 70 mls/hr Aztreonam 1 gm/ Dextrose 50 mls @ 100 mls/hr IV Q8HR [facility] Stop: 06/11/17 20:59 Last Admin: 04/13/17 21:30 Dose: 100 mls/hr Ibuprofen (Motrin) 400 mg GT Q6H PRN PRN Reason: Pain (Mild) IF APAP INEFFECTIV Ipratropium [place] (Atrovent Neb 0.5mg/2.5ml) 0.5 mg HHN Q3H PRN PRN Reason: Shortness of Breath Levetiracetam (Keppra) 1,000 mg GT BID [facility] Stop: 06/10/17 16:59 Last Admin: 04/14/17 09:11 Dose: 1,000 mg Loperamide HCl (Imodium 1mg/5ml Suspension) 2 mg GT Q6H PRN PRN Reason: Diarrhea Lorazepam (Ativan) 0.5 mg IV Q4HR PRN; Protocol PRN Reason: Seizure Stop: 06/10/17 15:10 Magnesium Hydroxide (Milk Of Magnesia) 30 ml GT PRN PRN PRN Reason: no BM after 3 days Stop: 06/10/17 15:07 Metoprolol Tartrate (Lopressor) 25 mg GT DAILY [facility] Stop: 06/10/17 16:59 Last Admin: 04/14/17 09:08 Dose: 25 mg Miscellaneous (Gentamicin Iv Per Pharmacy) 1 ea MC PRN [facility] Stop: 06/10/17 12:44 Pantoprazole Sodium (Protonix) 40 mg GT DAILY [facility] Stop: 06/10/17 16:59 Last Admin: 04/14/17 09:09 Dose: 40 mg Polyethylene Glycol (Miralax) 17 gm GT DAILY [facility] Stop: 06/11/17 08:59 Last Admin: 04/14/17 09:09 Dose: 17 gm Potassium Chloride (Potassium Chloride Elixir) 20 meq GT DAILY [facility] Stop: 06/11/17 08:59 Last Admin: 04/14/17 09:10 Dose: 20 meq Sodium Phosphate (Fleet Enema) 135 ml RC DAILY PRN PRN Reason: Constipation Stop: 06/10/17 15:07 General: weak, alert HEENT: NC/AT, PERRLA Neck: Supple Lungs: CTAB Cardiovascular: RRR, Normal S1, Normal S2, without murmur Abdomen: soft, non-tender, non-distended Extremities: excoriation Neurological: alert - Procedures Procedures: Procedures Procedure Code Date CHANGE FEEDING DEVICE IN UP INTEST TRACT, TERRESTRIAL ECOLOGIST APPROACH [id number] 09/03/16 INSERT INDWELLING CATH 57.94 12/31/09 INSERT PICC CATH 71982 05/18/14 INSERTION OF FEEDING DEVICE INTO STOMACH, ENDO [id number] 10/11/16 INSERTION OF INFUSION DEVICE INTO R ATRIUM, PERC APPROACH [id number] 10/11/16 VENOUS CATHETERIZATION NEC 38.93 05/18/14 Internal Medicine Assmt/Plan - Assessment Assessment: acute uti seizures cerebral palsy spastic quadriplegia GERD microcephaly blindness - Plan Plan: dc once cleared by id, appreciate abx recommendations continue empiric ivabx am labs ivf for hydration seizure precautions Nutritional Asmnt/Malnutr-PDOC - Dietary Evaluation Malnutrition Findings (Please click <Entered> for more info): Nutritional Asmnt/Malnutrition Start: 04/11/17 12: 57 Text: Status: Complete Freq: Document 04/11/17 15:31 [facility] (Rec: 04/11/17 16:01 [facility] [id number]) Nutritional Asmnt/Malnutrition Patient General Information Nutritional Screening Consult Diagnosis Seizure Pertinent Medical Hx/Surgical Hx HTN, cerebral palsy, spastic quadriplegia, GERD, microcephaly, blindness, s/p bilateral pneumonia, PEG Subjective Information Nutrition Consult for Marc 12 and gtube received and completed. Pt is a 41-year-old female from [facility] admitted with chief complaint of seizure. Pt is nonverbal and a poor historian . Tube feeding off during time of visit at 1346, per order. Pt appears well nourished with no signs of muscle or fat depletion. Teeth intact. Per chart, pt has had downward wt trend since June 2016 (88.8 #). Last wt measured at facility was 81.8# on 04/01. Current Diet Order/ Nutrition Support Fibersource HN at 53 ml/hr x 16 hours =1018kcal,46gm protein,687 ml H2O Patient / S.O Can't verbalize diet edu Pertinent Medications Vitamin C, Gentamicin, Levaquin, KCl Elixir Pertinent Labs Reviewed Nutritional Hx/Data Height 4 ft 7 in Height (Calculated Centimeters) 139.7 Current Weight (lbs) 81 lb 8 oz Weight (Calculated Kilograms) 37.0 Weight (Calculated Grams) 21205.8 Usual body Weight (lbs) 88 % Usual Body Weight 93 [place] Body Weight N/A Recent Weight Change Yes Weight Status Approriate GI Symptoms GI Symptoms None Difficult in: Chewing Swallowing Food Allergies No Usual diet at home Jevity 1.2 at 53 ml/hr x 16 hours between 1774-6335 Skin Integrity/Comment: Marc 14. Rash to abdomen but no skin breakdown. Estimated Nutritional Goals Calories/Kcals/Kg Using UBW 40 kg for wt maintenance: Kcals Calculated 4945-4618 kcals/day (25-30 kcals/k) Protein g/kg: Using UBW 40 kg with consideration of bedbound status: Protein Calculated 40-52 gm/day (1-1.3 gm/kg) Fluid: ml 9412-5801 ml/day (1 ml/kcal) Nutritional Problem 1. Problem Problem Unintentional wt loss related to Etiology possible imbalance of energy intake vs expenditure as evidenced by Signs/Symptoms: 5.6% body wt loss in 6 months. Malnutrition Alert Interpretation of weight loss Non-Severe up to 10% in 6 months (mod) Protein-Calorie Malnutrition N/A Is there a minimum of two criteria No selected? Query Text:Check all the applicable criteria. A minimum of two criteria are recommended for diagnosis of either severe or non-severe malnutrition. Malnutrition Related to Morbid Obesity Malnutrition related to morbid obesity No Intervention/Recommendation Comments 1. Recommend increase Fibersource HN to 63 ml/hr x 16 hours to run between 1600- 0800 to meet higher ends of estimated nutritional needs to prevent further wt loss. Tube feeding to provide 1210 kcals , 52 gm protein, and 816 ml free water per day. Expected Outcomes/Goals Expected Outcomes/Goals Provide pt with 100% of estimated nutritional needs to wt maintenance.
--- NOTE | 2017-04-14 17:32 | Infectious Disease Prog Note ---
Infectious Disease Subjective - Review of Systems Service Date: 04/14/17 Subjective: cc uti hpi pt wbc normalizedd/w staff schedule for discharge ros no fevr o/e blind vss cjest clear abd soft ext pulse dx uti gent stop on discharge Infectious Disease Objective - Results Result Diagrams: 04/14/17 06:30 04/14/17 06:30 Recent Labs: Laboratory Last Values WBC 7.2 Th/cmm (4.8-10.8) D 04/14/17 06:30 RBC 4.08 Mil/cmm (3.80-5.10) 04/14/17 06:30 Hgb 12.1 gm/dL (11.7-15.5) 04/14/17 06:30 Hct 35.6 % (35.0-45.0) 04/14/17 06:30 MCV 87.3 fl (81-100) 04/14/17 06:30 MCH 29.6 pg (27.0-31.0) 04/14/17 06:30 MCHC Differential 33.9 pg (28.0-36.0) 04/14/17 06:30 RDW 12.5 % (11.5-20.0) 04/14/17 06:30 Plt Count 220 Th/cmm (150-400) 04/14/17 06:30 MPV 9.5 fl 04/14/17 06:30 Neutrophils % 59.5 % (40.0-80.0) 04/14/17 06:30 Band Neutrophils % 3 % (0-10) 04/10/17 12:59 Lymphocytes % 24.5 % (20.0-50.0) 04/14/17 06:30 Monocytes % 10.5 % (2.0-10.0) H 04/14/17 06:30 Eosinophils % 4.9 % (0.0-5.0) 04/14/17 06:30 Basophils % 0.6 % (0.0-2.0) 04/14/17 06:30 Neutrophils (Manual) 64 % (40-80) 04/13/17 16:39 Lymphocytes 24 % (20-50) 04/13/17 16:39 Monocytes 4 % (2-10) 04/13/17 16:39 Eosinophils 6 % (0-5) H 04/13/17 16:39 Basophils 2 % (0-3) 04/13/17 16:39 Platelet Estimate ADEQUATE (NORMAL) 04/13/17 16:39 Platelet Morphology NORMAL (NORMAL) 04/10/17 12:59 RBC Morph Micro Appear NORMAL (NORMAL) 04/10/17 12:59 Sodium 136 mEq/L (136-145) 04/14/17 06:30 Potassium 3.8 mEq/L (3.5-5.1) 04/14/17 06:30 Chloride 108 mEq/L (98-107) H 04/14/17 06:30 Carbon Dioxide 23.1 mEq/L (21.0-31.0) 04/14/17 06:30 Anion Gap 8.7 (7.0-16.0) 04/14/17 06:30 BUN 6 mg/dL (7-25) L 04/14/17 06:30 Creatinine 0.5 mg/dL (0.6-1.2) L 04/14/17 06:30 Est GFR ( Amer) > 60.0 ml/min (>90) 04/14/17 06:30 Est GFR (Non-Af Amer) > 60.0 ml/min 04/14/17 06:30 BUN/Creatinine Ratio 12.0 04/14/17 06:30 Glucose 102 mg/dL (70-105) 04/14/17 06:30 Whole Bld Lactic Acid 1.45 mmol/L (0.60-1.99) 04/10/17 12:59 Calcium 8.6 mg/dL (8.6-10.3) 04/14/17 06:30 Urine Source CATH 04/10/17 14:17 Urine Color YELLOW 04/10/17 14:17 Urine Clarity SLIGHT CLOUDY (CLEAR) 04/10/17 14:17 Urine pH 7.0 (4.6 - 8.0) 04/10/17 14:17 Ur Specific [place] 1.020 (1.005-1.030) 04/10/17 14:17 Urine Protein 100 mg/dL (NEGATIVE) H 04/10/17 14:17 Urine Glucose (UA) NEGATIVE mg/dL (NEGATIVE) 04/10/17 14:17 Urine Ketones NEGATIVE mg/dL (NEGATIVE) 04/10/17 14: Urine Blood NEGATIVE (NEGATIVE) 08/10/17 14:17 Urine Nitrate NEGATIVE (NEGATIVE) 04/10/17 14:17 Urine Bilirubin NEGATIVE (NEGATIVE) 04/10/17 14:17 Urine Urobilinogen 0.2 E.U./dL (0.2 - 1.0) 04/10/17 14:17 Ur Leukocyte Esterase TRACE (NEGATIVE) H 04/10/17 14:17 Urine RBC 0-2 /hpf (0-5) 04/10/17 14:17 Urine WBC 25-50 /hpf (0-5) H 04/10/17 14:17 Ur Epithelial Cells FEW /lpf (FEW) 04/10/17 14:17 Urine Bacteria FEW /hpf (NONE SEEN) 04/10/17 14:17 Urine Mucus FEW /lpf (FEW) 04/10/17 14:17 Gentamicin Peak 7.1 ug/ml (4.0-8.0) 04/12/17 15:59 Gentamicin Trough 1.0 ug/ml (0.2-2.0) 04/12/17 13:10 Carbamazepine 5.4 ug/ml (4.0-12.0) 04/10/17 12:59 - Physical Exam Vitals and I&O: Vital Signs Temp 97.0 F 04/14/17 16:00 Pulse 57 04/14/17 16:00 Resp 18 04/14/17 16:00 BP 101/52 04/14/17 16:00 Pulse Ox 94 04/14/17 16:00 Intake & Output 04/13/17 04/14/17 04/14/17 18:59 06:59 18:59 Intake Total 952 1542 Balance 952 1542 Weight (lbs) 36.061 kg 35.38 kg Intake: Intake, IV Amount 152 1152 Aztreonam 1 gm In 50 50 Dextrose 5% 50 ml @ 100 mls/hr IV Q8HR [facility] Rx#: [id number] D5-0.45NS 1,000 ml @ 70 1000 mls/hr IV .[id number] [facility] Rx #:[id number] Gentamicin 80 mg In 102 102 Sodium Chloride 0.9% 100 ml @ 200 mls/hr IV Q12H [facility] Rx#:[id number] Tube Feeding 600 190 Other 200 200 Other: # Voids 3 3 # Bowel Movements 1 0 Active Medications: Current Medications Acetaminophen (Tylenol 650mg/20.3ml Suspension) 650 mg GT Q4H PRN PRN Reason: mild pain or >100.1 Stop: 06/10/17 15:07 Last Admin: 04/13/17 21:38 Dose: 650 mg Albuterol Sulfate (Albuterol 2.5mg/3ml Neb Ud) 2.5 mg IH Q2HR PRN PRN Reason: Shortness of Breath or Wheeze Stop: 06/10/17 15:10 Ascorbic Acid (Vitamin C) 500 mg GT DAILY [facility] Stop: 06/11/17 08:59 Last Admin: 04/14/17 09:11 Dose: 500 mg Aspirin (Aspirin Chewable) 81 mg GT DAILY [facility] Stop: 06/11/17 08:59 Last Admin: 04/14/17 09:08 Dose: 81 mg Benztropine Mesylate (Cogentin) 1 mg GT BID [facility] Stop: 06/10/17 16:59 Last Admin: 04/14/17 17:11 Dose: 1 mg Calcium Carbonate (Tums) 500 mg GT TID [facility] Stop: 06/10/17 15:59 Last Admin: 04/14/17 14:03 Dose: 500 mg Carbamazepine (Tegretol) 200 mg GT TID [facility] PRN Reason: Protocol Stop: 06/10/17 20:59 Last Admin: 04/14/17 14:03 Dose: 200 mg Cholecalciferol (Vitamin D3) 1,000 iu GT DAILY [facility] Stop: 06/11/17 08:59 Last Admin: 04/14/17 09:08 Dose: 1,000 iu Ferrous Sulfate (Iron) 300 mg GT BID [facility] Stop: 06/10/17 16:59 Last Admin: 04/14/17 17:10 Dose: 300 mg Glycopyrrolate (Robinul) 2 mg GT DAILY [facility] Stop: 06/11/17 08:59 Last Admin: 04/14/17 09:09 Dose: 2 mg Guaifenesin (Robitussin) 100 mg PO Q4H PRN PRN Reason: Cough or Congestion Stop: 06/10/17 15:10 Gentamicin Sulfate 80 mg/ (Sodium Chloride) 102 mls @ 200 mls/hr IV Q12H [facility] Stop: 06/10/17 13:59 Last Admin: 04/14/17 14:39 Dose: 200 mls/hr Dextrose/Sodium Chloride (D5-0.45ns) 1,000 mls @ 70 mls/hr IV .[id number] [facility] Stop: 06/10/17 15:14 Last Admin: 04/13/17 23:33 Dose: 70 mls/hr Aztreonam 1 gm/ Dextrose 50 mls @ 100 mls/hr IV Q8HR [facility] Stop: 06/11/17 20:59 Last Admin: 04/14/17 14:04 Dose: 100 mls/hr Ibuprofen (Motrin) 400 mg GT Q6H PRN PRN Reason: Pain (Mild) IF APAP INEFFECTIV Ipratropium [place] (Atrovent Neb 0.5mg/2.5ml) 0.5 mg HHN Q3H PRN PRN Reason: Shortness of Breath Levetiracetam (Keppra) 1,000 mg GT BID [facility] Stop: 06/10/17 16:59 Last Admin: 04/14/17 17:10 Dose: 1,000 mg Loperamide HCl (Imodium 1mg/5ml Suspension) 2 mg GT Q6H PRN PRN Reason: Diarrhea Lorazepam (Ativan) 0.5 mg IV Q4HR PRN; Protocol PRN Reason: Seizure Stop: 06/10/17 15:10 Magnesium Hydroxide (Milk Of Magnesia) 30 ml GT PRN PRN PRN Reason: no BM after 3 days Stop: 06/10/17 15:07 Metoprolol Tartrate (Lopressor) 25 mg GT DAILY [facility] Stop: 06/10/17 16:59 Last Admin: 04/14/17 09:08 Dose: 25 mg Miscellaneous (Gentamicin Iv Per Pharmacy) 1 ea MC PRN [facility] Stop: 06/10/17 12:44 Pantoprazole Sodium (Protonix) 40 mg GT DAILY [facility] Stop: 06/10/17 16:59 Last Admin: 04/14/17 09:09 Dose: 40 mg Polyethylene Glycol (Miralax) 17 gm GT DAILY [facility] Stop: 06/11/17 08:59 Last Admin: 04/14/17 09:09 Dose: 17 gm Potassium Chloride (Potassium Chloride Elixir) 20 meq GT DAILY [facility] Stop: 06/11/17 08:59 Last Admin: 04/14/17 09:10 Dose: 20 meq Sodium Phosphate (Fleet Enema) 135 ml RC DAILY PRN PRN Reason: Constipation Stop: 06/10/17 15:07 - Procedures Procedures: Procedures Procedure Code Date CHANGE FEEDING DEVICE IN UP INTEST TRACT, EMPLOYEE ADVISER APPROACH [id number] 09/03/16 INSERT INDWELLING CATH 57.94 12/31/09 INSERT PICC CATH [id number] 05/18/14 INSERTION OF FEEDING DEVICE INTO STOMACH, ENDO [id number] 10/11/16 INSERTION OF INFUSION DEVICE INTO R ATRIUM, PERC APPROACH 78X071S 10/11/16 VENOUS CATHETERIZATION NEC 38.93 05/18/14 Infectious Disease Assmt/Plan - Problem List Patient Problems: All Active Problems Seizure (Active 06/15/15) R56.9 Allergen injection reaction (Acute) T80.89XA Observed seizure-like activity (Acute) R56.9 Systemic inflammatory response syndrome (Acute) R65.10 Blindness - both eyes (Chronic) H54.0 Cerebral palsy (Chronic) G80.9 Microcephalus (Chronic) Q02 spastic quadriplegia (Chronic) Nutritional Asmnt/Malnutr-PDOC - Dietary Evaluation Malnutrition Findings (Please click <Entered> for more info): Nutritional Asmnt/Malnutrition Start: 04/11/17 12: 57 Text: Status: Complete Freq: Document 04/11/17 15:31 [facility] (Rec: 04/11/17 16:01 [facility] [id number]) Nutritional Asmnt/Malnutrition Patient General Information Nutritional Screening Consult Diagnosis Seizure Pertinent Medical Hx/Surgical Hx HTN, cerebral palsy, spastic quadriplegia, GERD, microcephaly, blindness, s/p bilateral pneumonia, PEG Subjective Information Nutrition Consult for Marc Myrick and gtube received and completed. Pt is a 41-year-old female from [facility] admitted with chief complaint of seizure. Pt is nonverbal and a poor historian . Tube feeding off during time of visit at 1346, per order. Pt appears well nourished with no signs of muscle or fat depletion. Teeth intact. Per chart, pt has had downward wt trend since June 2016 (88.8 #). Last wt measured at facility was 81.8# on 04/01. Current Diet Order/ Nutrition Support Fibersource HN at 53 ml/hr x 16 hours =1018kcal,46gm protein,687 ml H2O Patient / S.O Can't verbalize diet edu Pertinent Medications Vitamin C, Gentamicin, Levaquin, KCl Elixir Pertinent Labs Reviewed Nutritional Hx/Data Height 1.4 m Height (Calculated Centimeters) 139.7 Current Weight (lbs) 36.968 kg Weight (Calculated Kilograms) 37.0 Weight (Calculated Grams) 48740.8 Usual body Weight (lbs) 88 % Usual Body Weight 93 [place] Body Weight N/A Recent Weight Change Yes Weight Status Approriate GI Symptoms GI Symptoms None Difficult in: Chewing Swallowing Food Allergies No Usual diet at home Jevity 1.2 at 53 ml/hr x 16 hours between 7262-9495 Skin Integrity/Comment: Marc 14. Rash to abdomen but no skin breakdown. Estimated Nutritional Goals Calories/Kcals/Kg Using UBW 40 kg for wt maintenance: Kcals Calculated 8273-5854 kcals/day (25-30 kcals/k) Protein g/kg: Using UBW 40 kg with consideration of bedbound status: Protein Calculated 40-52 gm/day (1-1.3 gm/kg) Fluid: ml 3067-6928 ml/day (1 ml/kcal) Nutritional Problem 1. Problem Problem Unintentional wt loss related to Etiology possible imbalance of energy intake vs expenditure as evidenced by Signs/Symptoms: 5.6% body wt loss in 6 months. Malnutrition Alert Interpretation of weight loss Non-Severe up to 10% in 6 months (mod) Protein-Calorie Malnutrition N/A Is there a minimum of two criteria No selected? Query Text:Check all the applicable criteria. A minimum of two criteria are recommended for diagnosis of either severe or non-severe malnutrition. Malnutrition Related to Morbid Obesity Malnutrition related to morbid obesity No Intervention/Recommendation Comments 1. Recommend increase Fibersource HN to 63 ml/hr x 16 hours to run between 1600- 0800 to meet higher ends of estimated nutritional needs to prevent further wt loss. Tube feeding to provide 1210 kcals , 52 gm protein, and 816 ml free water per day. Expected Outcomes/Goals Expected Outcomes/Goals Provide pt with 100% of estimated nutritional needs to wt maintenance.
== END 2017-04-14 19:25 | disposition home or self-care (01) | DRG 871 ==
LOC: ER 12:38 → TELE 16:40
PROVIDERS: ADMIT Internal Medicine; ATTEND Internal Medicine
DX: A41.9 Sepsis, unspecified organism (principal); G80.0 Spastic quadriplegic cerebral palsy; F73 Profound intellectual disabilities; R56.9 Unspecified convulsions; N39.0 Urinary tract infection, site not specified; K21.9 Gastro-esophageal reflux disease without esophagitis; H54.42 Blindness, left eye, normal vision right eye; I10 Essential (primary) hypertension; Z66 Do not resuscitate; R13.10 Dysphagia, unspecified; Z88.7 Allergy status to serum and vaccine; Z88.1 Allergy status to other antibiotic agents; Z88.8 Allergy status to other drugs, medicaments and biological substances; Z93.1 Gastrostomy status; Z87.19 Personal history of other diseases of the digestive system
CPT/HCPCS: 36415-UA; 71010-TC; 80048-TC; 80156-TC; 80170-TC; 81001-TC; 83605; 85007-TC; 85025-TC; 85027-TC; 87086-90; 93005; 94760; J1580; J1956; J3490; J7030; J7040; X7704; Z7610

== ENCOUNTER 2017-07-19 23:05 | Inpatient (IN) | payer MEDICARE, MEDICAID ==
[2017-07-19] MEDS ORDERED: Sodium Chloride 0.9% 1,000 ML IV ONE (23:26)
[2017-07-20] LABS: HEMOGLOBIN 13.2 gm/dL (12-16); MEAN CELL VOLUME 86.2 fl (81-100); MEAN CORPUSCULAR HEMOGLOBIN 29.8 pg (27.0-31.0); MEAN CORPUSCULAR HGB CONC 34.6 pg (28.0-36.0); MEAN PLATELET VOLUME 8.9 fl; PLATELET COUNT 322 Th/cmm (150-400); RED BLOOD COUNT 4.41 Mil/cmm (3.80-5.10); RED CELL DISTRIBUTION WIDTH 13.1 % (11.5-20.0)
[2017-07-20 00:09] LABS: WHITE BLOOD COUNT 26.9 Th/cmm (4.8-10.8)
[2017-07-20 00:25] LABS: INR 1.11 (0.5-1.4); PROTHROMBIN TIME (TEST) 11.6 SECONDS (9.5-11.5)
[2017-07-20] MEDS ORDERED: Piperacillin Sodium/Tazobact 3.375 gm Vial IV ONE (00:28)
[2017-07-20 00:32] LABS: ALKALINE PHOSPHATASE 75 U/L (34-104); BILIRUBIN,TOTAL 0.4 mg/dL (0.3-1.0); BUN - UREA NITROGEN 26 mg/dL (7-25); BUN/CREATININE RATIO 43.3; CALCIUM SERUM 9.1 mg/dL (8.6-10.3); CARBON DIOXIDE 25.7 mEq/L (21.0-31.0); CHLORIDE 96 mEq/L (98-107); CREATININE - SERUM 0.6 mg/dL (0.6-1.2); GLUCOSE 104 mg/dL (70-105); SGOT 77 U/L (13-39); SGPT/ALT 91 U/L (7-52); SODIUM SERUM 128 mEq/L (136-145)
[2017-07-20 00:52] LABS: ANION GAP 9.4 (7.0-16.0); POTASSIUM SERUM 3.1 mEq/L (3.5-5.1)
[2017-07-20 00:58] LABS: URINE BILIRUBIN NEGATIVE (NEGATIVE); URINE BLOOD MODERATE (NEGATIVE); URINE GLUCOSE (UA) NEGATIVE (NEGATIVE); URINE KETONE NEGATIVE (NEGATIVE); URINE PH 5.5 (4.6 - 8.0); URINE PROTEIN 30 mg/dL (NEGATIVE)
[2017-07-20 01:20] LABS: URINE COLOR YELLOW
[2017-07-20] MEDS ORDERED: Heparin Sodium 1,000 Units/mL Vial IVP ONE (01:21)
[2017-07-20 01:22] LABS: URINE BACTERIA NONE SEEN /hpf (NONE SEEN); URINE EPITHELIAL CELLS NONE SEEN /lpf (FEW); URINE WBC 0-2 /hpf (0-5)
[2017-07-20] MEDS ORDERED: Potassium Chloride Elixir 20 mEq /15 mL UDC GT ONE (01:25)
[2017-07-20 02:11] LABS: TOTAL CELLS COUNTED 100
[2017-07-20 02:12] LABS: BAND NEUTROPHILE 6 % (0-10); BASOPHIL 0 % (0-3); EOSINOPHIL 0 % (0-5); NEUTROPHILS 74 % (40-80); PLATELET ESTIMATE ADEQUATE (NORMAL); PLATELET MORPHOLOGY NORMAL (NORMAL)
[2017-07-20] MEDS ORDERED: Potassium Chloride Elixir 20 mEq /15 mL UDC ONE (02:59)
[2017-07-20 03:05] VITALS: BP 113/58
[2017-07-20 07:31] LABS: CHOLESTEROL 134 mg/dL (<200); TRIGLYCERIDES 197 mg/dL (<150)
--- NOTE | 2017-07-20 09:02 | Diagnostic Imaging Report ---
Portable chest x-ray History: Cough Allowing for portable technique the heart size is normal. No focal pulmonary parenchymal processes. No hilar or mediastinal abnormalities. Small calcific density noted in the soft tissues adjacent to the lateral aspect of the humeral head consistent with calcific tendinitis. Impression: No acute abnormalities.
[2017-07-20] MEDS ORDERED: Magnesium Hydroxide (MOM) 30 mL UDC PO PRN (10:07)
[2017-07-20] MEDS ORDERED: Albuterol Nebulizer 2.5mg/3mL HHN PRN (10:11)
[2017-07-20] MEDS ORDERED: Fleet Enema 135 mL RC PRN ×2 (10:20→12:04)
[2017-07-20] MEDS ORDERED: Ipratropium Neb 0.5 mg/2.5 mL UD HHN PRN (10:41)
[2017-07-20] MEDS ORDERED: Ipratropium Neb 0.5 mg/2.5 mL UD HHN SCH (11:00)
[2017-07-20] MEDS ORDERED: Magnesium Hydroxide (MOM) 30 mL UDC GT PRN ×2 (12:04→12:38)
[2017-07-20] MEDS ORDERED: IPRATROPIUM BROMIDE INH PRN (12:04)
[2017-07-20] MEDS ORDERED: ALBUTEROL 0.09 MG IH PRN (12:04)
[2017-07-20] MEDS ORDERED: LOPERAMIDE HYDROCHLORIDE GT PRN (12:04)
[2017-07-20] MEDS ORDERED: BISACODYL 10 MG RC PRN (12:04)
[2017-07-20] MEDS ORDERED: Potassium Chloride 40 MEQ, Lidocaine 1% 20mL Vial 25 MG in Sodium Chloride 0.9% 250 ML IV ONE (12:22)
[2017-07-20] MEDS ORDERED: carBAMazepine 200 mg/10 mL UDC GT SCH (14:00)
[2017-07-20] MEDS ORDERED: CALCIUM CARBONATE GT SCH (14:00)
[2017-07-20] MEDS ORDERED: Probiotic Screen MC PRN (14:46)
[2017-07-20] MEDS: Levofloxacin 500mg/100mL 500 MG/100 ML BAG IV SCH (14:55)
[2017-07-20] MEDS ORDERED: Benztropine 1 MG TAB GT SCH (17:00)
[2017-07-20] MEDS ORDERED: Levetiracetam 500 mg/5mL 5mL UDC GT SCH (17:00)
--- NOTE | 2017-07-20 19:22 | History & Physical ---
ADMIT DATE: 07/20/2017 CHIEF COMPLAINT: Coffee-ground emesis. HISTORY OF PRESENT ILLNESS: This is a 42-year-old female with history of mental retardation, cerebral palsy, hypertension, was admitted from nursing facility secondary coffee-ground emesis. The patient was brought in the ER, the patient being worked up for possible aspiration. The patient with elevated white count. PAST MEDICAL HISTORY: As mentioned in history present illness. PAST SURGICAL HISTORY: Status post G-tube. ALLERGIES: CEFTRIAXONE, FENTANYL AND DEPAKOTE. MEDICATIONS: Albuterol, Atrovent, Cogentin, calcium, Tegretol, iron, Robinul, Keppra, multivitamins. FAMILY HISTORY: Noncontributory. SOCIAL HISTORY: The patient is a snf patient requiring 24-hour total care. REVIEW OF SYSTEMS: This is limited secondary to the patient's current mental state. We will try to obtain more detailed review of systems at a later date by talking to family members, Mónica Fernando is the relative ____. We will try to get information from nursing staff at [facility] ____ as well as from Dr. Joy who normally follows the patient. PHYSICAL EXAMINATION: VITAL SIGNS: Blood pressure 105/49, respirations 18, pulse 65, temperature 98.4. GENERAL: Elderly female, appears her stated age. NECK: Supple. No mass. LUNGS: Equal breath sounds. Few rhonchi. HEART: Regular rate and rhythm without appreciable murmur. ABDOMEN: Soft, globular. EXTREMITIES: Positive excoriations. NEUROLOGIC: Limited. LABORATORY DATA: WBC 26, hemoglobin 13, platelets 322. INR 1.1. Sodium 120, potassium 3.1, BUN 26, creatinine 0.6, AST and ALT 77 ____ respectively. UA showed 10-25 rbc's. ASSESSMENT AND PLAN: Leukocytosis, sepsis, aspiration, GI bleeding, hyponatremia, hypokalemia, renal insufficiency, elevated liver function tests, hematuria, cerebral palsy, seizure, hypertension. We will continue the patient on oxygen and bronchodilator treatment. Continue IV antibiotic. We will correct the patient's electrolyte abnormalities. Continue on aggressive hydration, continue current care with followup consult recommendations. We will refer the patient to GI as well. Review the patient's chest x-ray. We will admit the patient to telemetry. JOB# [id number]
--- NOTE | 2017-07-20 19:47 | ER Physician Documentation ---
DATE OF SERVICE: 07/20/2017 The labs came back. White count is high, very high at 26.9, hemoglobin is 13.2, hematocrit is 38, platelet count is 322,000. I did not see the manual differential count. It was stated yes, but did not see how much is the lymphocytes or neutrophils are. Troponin is 0.01, which is normal limits. Lactic acid is 1.01, which is within normal limits. BNP is within normal limits. Did not see any CHF on the x-ray. Protime is 11.6, which is within normal limits. The patient's sodium is 128, potassium 3.1, chloride is 96, anion gap is 9.4, glucose 104, BUN is 26, creatinine is 0.6. The patient's albumin level is 3.7, globulin is 3.8, AST is 77, ALT is 91, alkaline phosphatase is 75. Magnesium is 2.4. EKG is within normal limits. So in conclusion, the labs shows that the patient has sepsis. The patient has hyponatremia, hypokalemia and the patient has prerenal azotemia, maybe it could be ATN secondary to septic episodes and potassium supplement was given, normal saline bolus has been given to the patient. Liver function test is elevated, we do not know whether this is old or new, but one can recheck it again. EKG is within normal limits. The final diagnosis on this patient is sepsis, cerebral palsy and all other previous diagnosis mentioned earlier also true. The patient goes to Dr. Long. He sent the patient. The patient spoke to Dr. Long and the patient will be admitted, I believe under telemetry. JOB# [id number]
[2017-07-20] MEDS: D5-0.9%NS 1,000 ML IV SCH (20:23)
--- NOTE | 2017-07-20 20:39 | ER Physician Documentation ---
DATE OF SERVICE: 07/20/2017 TRIPLE LUMEN CATHETER REPORT The patient is admitted under the service of Dr. Long. The patient is a sick girl. She is a 42-year-old, mentally challenged patient. The patient came to the Emergency Room. She has a DNR status. She is septic, Dr. Long has sent the patient over here, and there were no lines available, only one 24 gauge through which the fluids are going very hardly at any speed, so we inserted a triple-lumen catheter under aseptic precautions. A dressing was applied. Mirela, Yovani, and Sabrina were all present during the thing and this was inserted and flushed with heparinized solution. A cap was applied and IV fluids were going. After a good aspiration through the port that was applied, we gave the fluids and antibiotics are being run through the patient. Dr. Long was called and he is admitting the patient in the telemetry floor. I do not see any complication. It went from the peripheral femoral venous line. I did not want to take the chance from the internal jugular from the right side of the neck because of the patient's critical nature and midline status. This was done somewhere around 1:15 p.m. and finished around 1:20. Dressing was applied and there were no complications that were seen. The dressing was applied by the nurses. They said I did my job and then let them do their job, so I left them to do the dressings and things. The patient's blood pressure, right now, hopefully should be getting better and antibiotics are going on. Thank you again, Dr. Long, for this privilege of taking care of your patient. JOB# [id number]
[2017-07-20] MEDS: carBAMazepine 200 mg/10 mL UDC GT SCH (22:01)
[2017-07-21 07:27] LABS: ALKALINE PHOSPHATASE 58 U/L (34-104); ANION GAP 9.4 (7.0-16.0); BILIRUBIN,TOTAL 0.7 mg/dL (0.3-1.0); BUN - UREA NITROGEN 18 mg/dL (7-25); CALCIUM SERUM 8.7 mg/dL (8.6-10.3); CARBON DIOXIDE 24.1 mEq/L (21.0-31.0); CHLORIDE 108 mEq/L (98-107); CREATININE - SERUM 0.6 mg/dL (0.6-1.2); GLUCOSE 130 mg/dL (70-105); MAGNESIUM 2.6 mg/dL (1.9-2.7); POTASSIUM SERUM 3.5 mEq/L (3.5-5.1); SGOT 51 U/L (13-39); SGPT/ALT 70 U/L (7-52); SODIUM SERUM 138 mEq/L (136-145)
[2017-07-21 07:48] LABS: % BASOPHILS 0.2 % (0.0-2.0); % EOSINOPHILS 0.1 % (0.0-5.0); % LYMPHOCYTES 9.4 % (20.0-50.0); % MONOCYTES 10.2 % (2.0-10.0); % NEUTROPHILS 80.1 % (40.0-80.0); MEAN CELL VOLUME 87.6 fl (81-100); MEAN CORPUSCULAR HEMOGLOBIN 29.5 pg (27.0-31.0); MEAN CORPUSCULAR HGB CONC 33.7 pg (28.0-36.0); MEAN PLATELET VOLUME 10.1 fl; NEUTROPHILE ABSOLUTE 13.2 Th/cmm (1.8-8.0); RED BLOOD COUNT 3.81 Mil/cmm (3.80-5.10); RED CELL DISTRIBUTION WIDTH 13.2 % (11.5-20.0)
--- NOTE | 2017-07-21 07:55 | Diagnostic Imaging Report ---
Exam: Ultrasound examination of the abdomen. HISTORY: Nausea and vomiting. Findings: Real-time ultrasound examination abdomen performed multiple planes. The study correlated with the previous CT examination of 04/11/2017. The study demonstrates normal echogenicity liver parenchyma. The gallbladder is distended the common bile duct measures 3.2 mm Pancreas poorly visualized. There is no evidence of obstructive uropathy or nephrolithiasis. Ill-defined 1.7 cm lucency left kidney might represent small cyst. The spleen is intact. No free fluid is noted. IMPRESSION: extremely limited examination due to large amount of intra-abdominal bowel gas Distended gallbladder. Nonvisualized pancreas. Question of left renal cyst. Clinical correlation recommended.
[2017-07-21 07:57] LABS: HEMATOCRIT 33.3 % (41.0-60); HEMOGLOBIN 11.2 gm/dL (12-16); PLATELET COUNT 211 Th/cmm (150-400); WHITE BLOOD COUNT 16.5 Th/cmm (4.8-10.8)
[2017-07-21] MEDS ORDERED: METOPROLOL TARTRATE 25 MG GT SCH (09:00)
[2017-07-21] MEDS ORDERED: Non-Formulary Item 1 EA (Multivit,Th Iron,Other Min [Thera-M] 1 TAB) GT SCH (09:00)
[2017-07-21] MEDS ORDERED: CHOLECALCIFEROL GT SCH (09:00)
[2017-07-21] MEDS ORDERED: POLYETHYLENE GLYCOL 17 GM GT SCH (09:00)
[2017-07-21] MEDS ORDERED: Non-Formulary Item 1 EA (Ascorbic Acid 500 MG) GT SCH (09:00)
--- NOTE | 2017-07-21 09:22 | Internal Medicine Prog Note ---
Internal Medicine Subjective - Subjective Service Date: 07/21/17 Patient seen and examined:: with staff Patient is:: awake, non-verbal Per staff patient has:: no adverse event Internal Medicine Objective - Results Result Diagrams: 07/21/17 06:20 07/21/17 06:20 Recent Labs: Laboratory Last Values WBC 16.5 Th/cmm (4.8-10.8) H D 07/21/17 06:20 RBC 3.81 Mil/cmm (3.80-5.10) 07/21/17 06:20 Hgb 11.2 gm/dL (12-16) L D 07/21/17 06:20 Hct 33.3 % (41.0-60) L D 07/21/17 06:20 MCV 87.6 fl (81-100) 07/21/17 06:20 MCH 29.5 pg (27.0-31.0) 07/21/17 06:20 MCHC Differential 33.7 pg (28.0-36.0) 07/21/17 06:20 RDW 13.2 % (11.5-20.0) 07/21/17 06:20 Plt Count 211 Th/cmm (150-400) D 07/21/17 06:20 MPV 10.1 fl 07/21/17 06:20 Neutrophils % 80.1 % (40.0-80.0) H 07/21/17 06:20 Band Neutrophils % 6 % (0-10) 07/19/17 23:45 Lymphocytes % 9.4 % (20.0-50.0) L 07/21/17 06:20 Monocytes % 10.2 % (2.0-10.0) H 07/21/17 06:20 Eosinophils % 0.1 % (0.0-5.0) 07/21/17 06:20 Basophils % 0.2 % (0.0-2.0) 07/21/17 06:20 Neutrophils (Manual) 74 % (40-80) 07/19/17 23:45 Lymphocytes 12 % (20-50) L 07/19/17 23:45 Monocytes 8 % (2-10) 07/19/17 23:45 Eosinophils 0 % (0-5) 07/19/17 23:45 Basophils 0 % (0-3) 07/19/17 23:45 Platelet Estimate ADEQUATE (NORMAL) 07/19/17 23:45 Platelet Morphology NORMAL (NORMAL) 07/19/17 23:45 RBC Morph Micro Appear NORMAL (NORMAL) 07/19/17 23:45 PT 11.6 SECONDS (9.5-11.5) H 07/19/17 23:45 INR 1.11 (0.5-1.4) 07/19/17 23:45 PTT (Actin FS) 23.8 SECONDS (26.0-38.0) L 07/21/17 06:20 Sodium 138 mEq/L (136-145) 07/21/17 06:20 Potassium 3.5 mEq/L (3.5-5.1) 07/21/17 06:20 Chloride 108 mEq/L (98-107) H 07/21/17 06:20 Carbon Dioxide 24.1 mEq/L (21.0-31.0) 07/21/17 06:20 Anion Gap 9.4 (7.0-16.0) 07/21/17 06:20 BUN 18 mg/dL (7-25) 07/21/17 06:20 Creatinine 0.6 mg/dL (0.6-1.2) 07/21/17 06:20 Est GFR ( Amer) > 60.0 ml/min (>90) 07/21/17 06:20 Est GFR (Non-Af Amer) > 60.0 ml/min 07/21/17 06:20 BUN/Creatinine Ratio 30.0 07/21/17 06:20 Glucose 130 mg/dL (70-105) H 07/21/17 06:20 POC Glucose 132 MG/DL (70 - 105) H 07/21/17 05:09 Whole Bld Lactic Acid 1.01 mmol/L (0.60-1.99) 07/19/17 23:45 Calcium 8.7 mg/dL (8.6-10.3) 07/21/17 06:20 Magnesium 2.6 mg/dL (1.9-2.7) 07/21/17 06:20 Total Bilirubin 0.7 mg/dL (0.3-1.0) 07/21/17 06:20 AST 51 U/L (13-39) H 07/21/17 06:20 ALT 70 U/L (7-52) H 07/21/17 06:20 Alkaline Phosphatase 58 U/L (34-104) 07/21/17 06:20 Troponin I 0.01 ng/mL (0.01-0.05) 07/19/17 23:45 C-Reactive Protein 0.2 mg/dL (0.0-0.9) 07/19/17 23:45 B-Natriuretic Peptide 109.0 pg/mL (5.0-100.0) H 07/19/17 23:45 Total Protein 6.3 gm/dL (6.0-8.3) 07/21/17 06:20 Albumin 3.2 gm/dL (3.7-5.3) L 07/21/17 06:20 Globulin 3.1 gm/dL 07/21/17 06:20 Albumin/Globulin Ratio 1.0 (1.0-1.8) 07/21/17 06:20 Triglycerides 197 mg/dL (<150) H 07/20/17 06:50 Cholesterol 134 mg/dL (<200) 07/20/17 06:50 LDL Cholesterol Direct 61 mg/dL (75-193) L 07/20/17 06:50 HDL Cholesterol 55 mg/dL (23-92) 07/20/17 06:50 Urine Source CATH 07/19/17 23:59 Urine Color YELLOW 07/19/17 23:59 Urine Clarity HAZY (CLEAR) 07/19/17 23:59 Urine pH 5.5 (4.6 - 8.0) 07/19/17 23:59 Ur Specific [place] 1.025 (1.005-1.030) 07/19/17 23:59 Urine Protein 30 mg/dL (NEGATIVE) H 07/19/17 23:59 Urine Glucose (UA) NEGATIVE mg/dL (NEGATIVE) 07/19/17 23:59 Urine Ketones NEGATIVE mg/dL (NEGATIVE) 07/19/17 23:59 Urine Blood MODERATE (NEGATIVE) H 07/19/17 23:59 Urine Nitrate NEGATIVE (NEGATIVE) 07/19/17 23:59 Urine Bilirubin NEGATIVE (NEGATIVE) 07/19/17 23:59 Urine Urobilinogen 1.0 E.U./dL (0.2 - 1.0) 07/19/17 23:59 Ur Leukocyte Esterase NEGATIVE (NEGATIVE) 07/19/17 23:59 Urine RBC 10-25 /hpf (0-5) H 07/19/17 23:59 Urine WBC 0-2 /hpf (0-5) 07/19/17 23:59 Ur Epithelial Cells NONE SEEN /lpf (FEW) 07/19/17 23:59 Urine Bacteria NONE SEEN /hpf (NONE SEEN) 07/19/17 23:59 Vancomycin Trough 5.3 ug/mL (10-20) L 07/21/17 01:32 - Physical Exam Vitals and I&O: Vital Signs Temp 98.0 F 07/21/17 04:00 Pulse 54 07/21/17 08:18 Resp 12 07/21/17 08:18 BP 123/63 07/21/17 04:00 Pulse Ox 97 07/21/17 08:18 Intake & Output 07/20/17 07/21/17 07/21/17 18:59 06:59 18:59 Intake Total 100 980 Output Total 401 275 Balance -301 705 Weight (lbs) 78 lb 83 lb 14.4 oz Intake: Intake, IV Amount 100 980 D5-0.9%Ns 1,000 ml @ 80 780 mls/hr IV .[id number] COUNT INCLUDES THE [facility] Rx #:[id number] Levofloxacin 500mg/100mL 100 500 mg In 100 ml @ 100 mls/hr IV Q24HR COUNT INCLUDES THE [facility] Rx#: [id number] Vancomycin HCl 500 mg In 100 100 Dextrose 5% 100 ml @ 100 mls/hr IV Q12HR@0200,1400 JUANI Rx#:[id number] Output: Urine 400 275 Stool 1 0 Other: # Bowel Movements 1 Stool Characteristics Soft Formed Active Medications: Current Medications Acetaminophen (Tylenol 650mg/20.3ml Suspension) 650 mg GT Q4H PRN PRN Reason: for mild pain, temp >100. Stop: 09/18/17 10:29 Albuterol Sulfate (Albuterol 2.5mg/3ml Neb Ud) 0.083 mg HHN Q4HRT PRN PRN Reason: Congestion, Wheezing Stop: 09/18/17 10:10 Ascorbic Acid (Vitamin C) 500 mg GT DAILY COUNT INCLUDES THE [facility] Stop: 09/19/17 08:59 Aspirin (Aspirin Chewable) 81 mg GT DAILY COUNT INCLUDES THE [facility] Stop: 09/19/17 08:59 Benztropine Mesylate (Cogentin) 1 mg GT BID COUNT INCLUDES THE [facility] Stop: 09/18/17 16:59 Bisacodyl (Dulcolax 10 Mg Supp) 10 mg RC DAILY PRN PRN Reason: Constipated & MOM uneffective Stop: 09/18/17 12:42 Calcium Carbonate (Calcium Carb) 1,200 mg GT TID COUNT INCLUDES THE [facility] Stop: 09/18/17 13:59 Last Admin: 07/20/17 22:01 Dose: 1,200 mg Carbamazepine (Tegretol) 200 mg GT TID JUANI PRN Reason: Protocol Stop: 09/18/17 13:59 Last Admin: 07/20/17 22:01 Dose: 200 mg Cholecalciferol (Vitamin D3) 1,000 iu GT DAILY COUNT INCLUDES THE [facility] Stop: 09/19/17 08:59 Ferrous Sulfate (Iron) 300 mg GT BID COUNT INCLUDES THE [facility] Stop: 09/18/17 16:59 Glycopyrrolate (Robinul) 2 mg GT DAILY COUNT INCLUDES THE [facility] Stop: 09/19/17 08:59 Dextrose/Sodium Chloride (D5-0.9%Ns) 1,000 mls @ 80 mls/hr IV .[id number] COUNT INCLUDES THE [facility] Stop: 09/18/17 12:14 Last Infusion: 07/21/17 06:08 Dose: 80 mls/hr Levofloxacin (Levaquin Pb) 500 mg in 100 mls @ 100 mls/hr IV Q24HR COUNT INCLUDES THE [facility] Stop: 09/18/17 12:14 Last Infusion: 07/21/17 06:08 Dose: Infused Vancomycin HCl 500 mg/ (Dextrose) 100 mls @ 100 mls/hr IV Q12HR@0200,1400 COUNT INCLUDES THE [facility] Stop: 09/18/17 13:59 Last Infusion: 07/21/17 06:09 Dose: Infused Ibuprofen (Motrin Childrens) 400 mg GT Q6HR PRN PRN Reason: Pain (Mild) Stop: 09/18/17 10:21 Ipratropium Cameron (Atrovent Neb 0.5mg/2.5ml) 0.5 mg HHN Q4HRT PRN PRN Reason: Shortness of Breath Stop: 09/18/17 10:59 Lactobacillus Rhamnosus (Culturelle) 1 each GT DAILY COUNT INCLUDES THE [facility] Stop: 09/19/17 08:59 Levetiracetam (Keppra) 1,000 mg GT BID COUNT INCLUDES THE [facility] Stop: 09/18/17 16:59 Loperamide HCl (Imodium 1mg/5ml Suspension) 2 mg GT Q6HR PRN PRN Reason: Diarrhea Stop: 09/18/17 12:48 Magnesium Hydroxide (Milk Of Magnesia) 30 ml GT DAILY PRN PRN Reason: Constipation Stop: 09/18/17 10:06 Metoprolol Tartrate (Lopressor) 25 mg GT DAILY JUANI Stop: 09/19/17 08:59 Miscellaneous (Vancomycin Iv Per Pharmacy) 1 ea PRN JUANI Stop: 09/18/17 12:14 Miscellaneous (Probiotic Screen) 1 ea PRN PRN PRN Reason: PROTOCOL Stop: 09/18/17 14:45 Multivitamins/Vitamin C (Theragran) 1 tab GT DAILY JUANI Stop: 09/19/17 08:59 Pantoprazole Sodium (Protonix) 40 mg IVP BID JUANI Stop: 09/18/17 16:59 Polyethylene Glycol (Miralax) 17 gm GT DAILY JUANI Stop: 09/19/17 08:59 Potassium Chloride (Potassium Chloride Elixir) 20 meq GT DAILY JUANI Stop: 09/19/17 08:59 Sodium Phosphate (Fleet Enema) 135 ml RC DAILY PRN PRN Reason: Constipation Stop: 09/18/17 10:19 General: weak, alert HEENT: NC/AT, PERRLA Neck: Supple Lungs: CTAB Cardiovascular: RRR, Normal S1, Normal S2, without murmur Abdomen: soft, non-tender, non-distended, +GT, positive bowel sound Extremities: excoriation Neurological: unable to follow command - Procedures Procedures: Procedures Procedure Code Date CHANGE FEEDING DEVICE IN UP INTEST TRACT, CONDOMINIUM PROPERTY MANAGER APPROACH [id number] 09/03/16 INSERT INDWELLING CATH 57.94 12/31/09 INSERT PICC CATH [id number] 05/18/14 INSERTION OF FEEDING DEVICE INTO STOMACH, ENDO [id number] 10/11/16 INSERTION OF INFUSION DEVICE INTO R ATRIUM, PERC APPROACH 06R929C 10/11/16 VENOUS CATHETERIZATION NEC 38.93 05/18/14 Internal Medicine Assmt/Plan - Assessment Assessment: LEUKOCYTOSIS SEPSIS ASPIRATION ACUTE GI BLEED HYPONATREMIA HYPOKALEMIA ACUTE RENAL INSUFFICIENCY MRSA NARES INTRA-ABDOMINAL GAS - Plan Plan: aspiration precautions keep npo ivf for hydration supplemental oxygen and bronchodilators gi follow up bactroban bid
--- NOTE | 2017-07-21 09:50 | Diagnostic Imaging Report ---
Portable chest x-ray HISTORY: Pneumonia The exam is compromised due to difficulty in patient positioning and marked patient rotation. Heart size difficult to assess. No focal pulmonary processes. No evidence of pleural fluid. IMPRESSION: 1. No definite acute abnormalities
[2017-07-21] MEDS: Levetiracetam 500 mg/5mL 5mL UDC GT SCH ×2 (11:19→17:47)
[2017-07-21] MEDS: Ferrous Sulfate 300 MG/5 ML UDC GT SCH ×2 (11:19→17:47)
[2017-07-21] MEDS: Aspirin 81mg Chewable Tab GT SCH (11:19)
[2017-07-21] MEDS: carBAMazepine 200 mg/10 mL UDC GT SCH ×3 (11:19→21:08)
[2017-07-21] MEDS: Lactobacillus Rhamnosus 10 Billion CFU Capsule GT SCH (11:20)
[2017-07-21] MEDS: POLYETHYLENE GLYCOL 3350 17 GM PACK GT SCH (11:20)
[2017-07-21] MEDS: Multivitamin Tab GT SCH (11:20)
[2017-07-21] MEDS: Potassium Chloride Elixir 20 mEq /15 mL UDC GT SCH (11:20)
[2017-07-21] MEDS: D5-0.9%NS 1,000 ML IV SCH ×2 (12:07→21:09)
[2017-07-21] MEDS ORDERED: VTE Chemical Prophylaxis Screen/Admission MC PRN (14:31)
[2017-07-21] MEDS: Levofloxacin 500mg/100mL 500 MG/100 ML BAG IV SCH (15:00)
--- NOTE | 2017-07-21 15:24 | ER Physician Documentation ---
DATE OF SERVICE: 07/20/2017 EMERGENCY ROOM EVALUATION AND TREATMENT A 42-year-old female patient. Date of is 1975. She is a DNR candidate, [facility] by [facility]. Long [facility], probably to be seen and evaluated and most likely to be admitted. The patient's weight is 35.38 kilograms. Body surface area 1.17 square meters. BMI is 18.1 kilograms per square meter. This is a female patient who does not speak, does not answer any questions, referred by Dr. Long because of vomiting and elevated white count at [facility]. She is allergic to Rocephin, Depakote, tetanus DAP, and valproic acid. Pain is 0/10. Code status is DNR. Emergency Room triage nurse did triage, found the vital signs to be temperature 96.4, pulse is 66, respirations 20, blood pressure is 92/56, 96% room air saturation. Height is 55 inches, weighing 78 pounds. Last menstrual period unknown. Tetanus allergy. SOCIAL HISTORY: She does not smoke. She does not drink. She does not use any unusual drugs or anything. She takes Dr. Long and his colleague's medications only. HISTORY OF PRESENT ILLNESS: She does not speak and hence history of present illness and other information could not be obtained from her, but they were kind enough to give some information from the [facility], which will be mentioned over here. She has a past history of intellectual disability, chest pain, MRSA, and seizure disorder. She has spastic quadriplegia, dysphagia, G-tube, GERD, aspiration pneumonia, hypertension, blindness total, anemia, microcephaly, thrombocytosis. The patient's other diagnosis includes that she has seizure disorder, cerebral palsy, spastic quadriplegia, tachycardia, microcephaly, MRSA colonized sputum, total blindness, allergies, etc. Diet is Jevity 1.2, 853 mL per hour ____ to provide 848 mL total, 1017 kilocalories for 24 hours on at 4:00 p.m. and off at 8:00 a.m. or when the dose is complete. [facility] in the [facility] includes that she is on aspirin 81 mg a day, benztropine 1 mg tablet twice daily for drooling, calcium carbonate 1250 five mL one teaspoonful per G-tube 3 times a day, carbamazepine 100 mg 5 mL suspension per G-tube 3 times a day for seizure, which is equivalent to Tegretol 5 mL. The G-tube needs to be cleaned up every shift as needed, ferrous sulfate elixir 220 mg twice a day was prescribed, flushed with 250 mL of water, glycopyrrolate 2 mg 1 tablet per NG tube for secretion, Levetiracetam 100 mg G-tube equivalent to Keppra and she is getting twice a day 1000 mg which might be little high, considering the patient's total body mass area is very little. Metoprolol tartrate 25 mg 1 tablet G-tube, hold if heart rate is less than 60, monitor side effects of Keppra. Monitor for headache, anorexia, nausea, dizziness, vertigo attacks, depression, rhinitis, diarrhea, irritability, schedule once a day, daily at around 7:00 or so. Monitor for side effects of Tegretol, which includes drowsiness, lethargy, dizziness, sore throat, fever. Omeprazole [address], given capsule per the G-tube before breakfast, equivalent to Prilosec. The patient's primary care physician is Dr. Chico Lyons . The patient is also getting polyethylene glycol powder 3350 NF powder one capful, that means 17 gram with 4 ounce of water, give per G-tube once daily, hold for loose stools. Potassium chloride 15 mL, that is 20 mEq once daily supplement, Theragran-M one tablet daily from the G-tube. Vitamin C from G-tube. She has a G-tube vitamin D3 1000 units once a day. P.r.n. medications are albuterol, Biscolax, fleet enema, ibuprofen, ipratropium, loperamide, MPEP and ____ cream is applied any time there is needed, change the G-tube for clogging or dislodgement. Check G-tube placement before medication fluid administration. Check G-tube residuals, Desitin cream applied to the G-tube area as needed for skin irritation. Gastrotomy tube if needed needs to be changed. Medication administration through the G-tube. All the medications through the G-tube will be given . place was [place], sex is female, race is . Attending physician is Dr. Migue Joy, telephone number [phone]. Address is [address] [place] [address]. Attending crime investigator special agent, Dr. Heidy Watson. Telephone number [phone]. Address is [address] [place] [address]. Attending dentist is [facility], telephone ____, pharmacy alternative is [phone], hospital preference is [facility] [phone], next of relationship Alma Ferguson father. Telephone number ____[phone]. Address is, [address] [place] [address]. Next of kin relationship, Mónica Marquez, aunt, leave message to Mónica Santana if unable to reach father in the above number and she will contact him. Telephone number, home is ____, Mónica's cell phone number is [phone]. Resident marketing development representative Radha Mock ____ telephone number [phone], address is [facility], [address] [place] [address]. ADMISSION DIAGNOSES: Sepsis, seizure disorder, intellectual disability, cerebral palsy, spastic quadriplegia, dysphagia, gastroesophageal reflux disease, gastrostomy tube, thrombocytosis, anemia, total blindness, allergy also to valproic acid, seizure disorder, hypertension, bilateral aspiration pneumonia in the past. The patient has allergy to Depakene, tetanus toxoid, and Rocephin. In the past, she had been admitted at [facility] from 05/23/2014 to 06/28/2014. Other prior hospital, [facility] 05/18/2014-05/23. Usual occupation, unemployed. Father's name is Javid Marquez. Mother's name is ____. service is none. Will do Medical. Address is [address] [place] [id number]. Mortuary preference is [employer]. Telephone number [phone]. Addresses [address] [place] [id number]. Medical number [id number]. [facility] gave the following things. The patient's white count is up. The patient possibly may be septic and Dr. Long will be the admitting physician. Once we get the lab, I will just look at the x-ray and other lab results and then decide further treatment that needs to be given to her. Her blood workup in the past 07/19 white count was 1771. Today is 07/20/2017, which is very high and she is septic with neutrophil count of 85, which confirms that the patient is septic. Absolute lymphocytes is 1.10, very low absolute monocytes is 0.01. The patient's other lab results that was done yesterday showing glucose to be 184, BUN of 28, creatinine of 0.66, prerenal azotemia, estimated glomerular filtration rate is 99 mL. Electrolytes done yesterday showing 139 sodium, potassium 3.8, chloride 100, CO2 of 23, calcium 95, BUN and creatinine ratio of ____. All the medication I discussed earlier. The diagnosis will be now, the patient has septicemia and may be with lactic acidosis elevated, so depending upon the lactic acid level ____ may need to be aggravated at the present moment. Zosyn and vancomycin have been given. She had pneumococcal vaccine, flu vaccine, other vaccine etc. has been given. FINAL DIAGNOSES: Septicemia, profound intellectual disabilities, seizure disorder, cerebral palsy, spastic quadriplegia, GERD, thrombotic thrombocytosis, thrombosis, micro encephalopathy, MRSA colonized sputum, total blindness, allergies, and Jevity has been given to the patient. Once I look at the x-ray, which will be in 1 minute, will let ____is our x-ray customer support technician. Thanks to him for coming. All other ENT and other people are on the case as needed by Dr. Long. G-tube flushing, ____ medication, etc all the feedings will be given through the G-tube. Controlled substances are ordered, are valid for only ____ 5 times supply. Thank you again Dr. Long for this privilege. JOB# [id number]
--- NOTE | 2017-07-21 20:19 | Consultation ---
DATE OF CONSULTATION: 07/21/2017 INPATIENT GASTROINTESTINAL CONSULTATION REFERRING PHYSICIAN: Dr. Long. REASON FOR CONSULTATION: Upper GI bleed in the form of coffee ground emesis. HISTORY: This is a 42-year-old female with intellectual disability. The patient was at a nursing facility and had some coffee ground emesis and therefore was brought to the hospital. She is otherwise a poor historian. PAST MEDICAL HISTORY: Cerebral palsy, mental retardation, hypertension, and dysphagia. PAST SURGICAL HISTORY: PEG tube placement. FAMILY HISTORY: Noncontributory. SOCIAL HISTORY: Resident of [facility] facility. ALLERGIES: CEFTRIAXONE, TETANUS, VALPROIC ACID. MEDICATIONS: Tylenol, vitamin C, aspirin, Cogentin, Dulcolax, Tegretol, iron, Robinul, Motrin, Atrovent, Keppra, Levaquin, Imodium, milk of magnesia, Lopressor, vancomycin, Protonix, MiraLax, Fleet enema, vancomycin. REVIEW OF SYSTEMS: Unobtainable. PHYSICAL EXAMINATION: VITAL SIGNS: Temperature 98, breathing 12, pulse of 54, blood pressure 123/63, satting 97%. GENERAL: In no apparent distress. EYES: Anicteric. HEENT: Normocephalic, atraumatic. NECK: Soft, supple. CHEST: Clear. No effort. CARDIOVASCULAR: Regular rate and rhythm. ABDOMEN: Soft, nontender, nondistended with G-tube. SKIN: Warm and dry. EXTREMITIES: No cyanosis, contracted. PSYCHOLOGICAL: Awake. LABORATORY DATA: Show white count 16.5, hemoglobin 11.2, platelets 211. INR is 1.11. Total bilirubin 0.7, AST 51, ALT 70, alkaline phosphatase is 58. Abdominal ultrasound showed a distended gallbladder. IMPRESSION: A 42-year-old female with coffee-ground emesis, upper GI bleed, cause could be from esophagitis, gastritis, peptic ulcer disease, will likely benefit from having an endoscopy. She also has mildly elevated LFTs of unclear etiology. Abdominal ultrasound was unremarkable. It is possible that the medication could be the source of the patient's elevated LFTs, especially Keppra, another possibility could she has an underlying liver disease. PLAN: 1. We will plan for EGD when consent has been obtained. 2. Continue to provide the patient with Protonix. 3. Follow LFTs. 4. If LFTs remain persistently elevated, will likely need workup. Thank you for allowing me to participate. Please call me if any questions. JOB# [id number]
[2017-07-22] MEDS: D5-0.9%NS 1,000 ML IV SCH (02:35)
[2017-07-22 07:06] LABS: % BASOPHILS 0.7 % (0.0-2.0); % EOSINOPHILS 0.2 % (0.0-5.0); % LYMPHOCYTES 8.4 % (20.0-50.0); % MONOCYTES 8.7 % (2.0-10.0); HEMATOCRIT 32.8 % (41.0-60); HEMOGLOBIN 11.1 gm/dL (12-16); MEAN CELL VOLUME 87.1 fl (81-100); MEAN CORPUSCULAR HEMOGLOBIN 29.5 pg (27.0-31.0); MEAN CORPUSCULAR HGB CONC 33.9 pg (28.0-36.0); NEUTROPHILE ABSOLUTE 14.5 Th/cmm (1.8-8.0); PLATELET COUNT 221 Th/cmm (150-400); RED BLOOD COUNT 3.77 Mil/cmm (3.80-5.10); RED CELL DISTRIBUTION WIDTH 13.4 % (11.5-20.0)
[2017-07-22 07:10] LABS: WHITE BLOOD COUNT 17.6 Th/cmm (4.8-10.8)
[2017-07-22 07:24] LABS: INR 1.22 (0.5-1.4); PROTHROMBIN TIME (TEST) 12.8 SECONDS (9.5-11.5)
[2017-07-22 07:30] LABS: ALB/GLOB RATIO 1.1 (1.0-1.8); BILIRUBIN,DIRECT 0.42 mg/dL (0.0-0.2); BILIRUBIN,TOTAL 0.9 mg/dL (0.3-1.0)
[2017-07-22 07:31] LABS: ANION GAP 7.5 (7.0-16.0); BUN - UREA NITROGEN 17 mg/dL (7-25); BUN/CREATININE RATIO 24.3; CALCIUM SERUM 8.8 mg/dL (8.6-10.3); CARBON DIOXIDE 25.9 mEq/L (21.0-31.0); CHLORIDE 114 mEq/L (98-107); CREATININE - SERUM 0.7 mg/dL (0.6-1.2); GLUCOSE 125 mg/dL (70-105); POTASSIUM SERUM 3.4 mEq/L (3.5-5.1); SODIUM SERUM 144 mEq/L (136-145)
[2017-07-22] MEDS: Ferrous Sulfate 300 MG/5 ML UDC GT SCH (09:02)
[2017-07-22] MEDS: carBAMazepine 200 mg/10 mL UDC GT SCH ×3 (09:02→20:37)
[2017-07-22] MEDS: Aspirin 81mg Chewable Tab GT SCH (09:02)
[2017-07-22] MEDS: Levetiracetam 500 mg/5mL 5mL UDC GT SCH ×2 (09:02→20:35)
[2017-07-22] MEDS: Lactobacillus Rhamnosus 10 Billion CFU Capsule GT SCH (09:03)
[2017-07-22] MEDS: Potassium Chloride Elixir 20 mEq /15 mL UDC GT SCH (09:08)
[2017-07-22] MEDS: Multivitamin Tab GT SCH (09:08)
[2017-07-22] MEDS: POLYETHYLENE GLYCOL 3350 17 GM PACK GT SCH (09:08)
--- NOTE | 2017-07-22 10:56 | Internal Medicine Prog Note ---
Internal Medicine Subjective - Subjective Service Date: 07/22/17 Patient seen and examined:: with staff Patient is:: awake, non-verbal Per staff patient has:: no adverse event, tolerating meds Internal Medicine Objective - Results Result Diagrams: 07/22/17 06:52 07/22/17 06:52 Recent Labs: Laboratory Last Values WBC 17.6 Th/cmm (4.8-10.8) H 07/22/17 06:52 RBC 3.77 Mil/cmm (3.80-5.10) L 07/22/17 06:52 Hgb 11.1 gm/dL (12-16) L 07/22/17 06:52 Hct 32.8 % (41.0-60) L 07/22/17 06:52 MCV 87.1 fl (81-100) 07/22/17 06:52 MCH 29.5 pg (27.0-31.0) 07/22/17 06:52 MCHC Differential 33.9 pg (28.0-36.0) 07/22/17 06:52 RDW 13.4 % (11.5-20.0) 07/22/17 06:52 Plt Count 221 Th/cmm (150-400) 07/22/17 06:52 MPV 9.0 fl 07/22/17 06:52 Neutrophils % 82.0 % (40.0-80.0) H 07/22/17 06:52 Band Neutrophils % 6 % (0-10) 07/19/17 23:45 Lymphocytes % 8.4 % (20.0-50.0) L 07/22/17 06:52 Monocytes % 8.7 % (2.0-10.0) 07/22/17 06:52 Eosinophils % 0.2 % (0.0-5.0) 07/22/17 06:52 Basophils % 0.7 % (0.0-2.0) 07/22/17 06:52 Neutrophils (Manual) 74 % (40-80) 07/19/17 23:45 Lymphocytes 12 % (20-50) L 07/19/17 23:45 Monocytes 8 % (2-10) 07/19/17 23:45 Eosinophils 0 % (0-5) 07/19/17 23:45 Basophils 0 % (0-3) 07/19/17 23:45 Platelet Estimate ADEQUATE (NORMAL) 07/19/17 23:45 Platelet Morphology NORMAL (NORMAL) 07/19/17 23:45 RBC Morph Micro Appear NORMAL (NORMAL) 07/19/17 23:45 PT 12.8 SECONDS (9.5-11.5) H 07/22/17 06:52 INR 1.22 (0.5-1.4) 07/22/17 06:52 PTT (Actin FS) 23.8 SECONDS (26.0-38.0) L 07/21/17 06:20 Sodium 144 mEq/L (136-145) 07/22/17 06:52 Potassium 3.4 mEq/L (3.5-5.1) L 07/22/17 06:52 Chloride 114 mEq/L (98-107) H 07/22/17 06:52 Carbon Dioxide 25.9 mEq/L (21.0-31.0) 07/22/17 06:52 Anion Gap 7.5 (7.0-16.0) 07/22/17 06:52 BUN 17 mg/dL (7-25) 07/22/17 06:52 Creatinine 0.7 mg/dL (0.6-1.2) 07/22/17 06:52 Est GFR ( Amer) > 60.0 ml/min (>90) 07/22/17 06:52 Est GFR (Non-Af Amer) > 60.0 ml/min 07/22/17 06:52 BUN/Creatinine Ratio 24.3 07/22/17 06:52 Glucose 125 mg/dL (70-105) H 07/22/17 06:52 POC Glucose 132 MG/DL (70 - 105) H 07/21/17 05:09 Whole Bld Lactic Acid 1.01 mmol/L (0.60-1.99) 07/19/17 23:45 Calcium 8.8 mg/dL (8.6-10.3) 07/22/17 06:52 Magnesium 2.6 mg/dL (1.9-2.7) 07/21/17 06:20 Total Bilirubin 0.9 mg/dL (0.3-1.0) 07/22/17 06:52 Direct Bilirubin 0.42 mg/dL (0.0-0.2) H 07/22/17 06:52 AST 70 U/L (13-39) H 07/22/17 06:52 ALT 96 U/L (7-52) H 07/22/17 06:52 Alkaline Phosphatase 60 U/L (34-104) 07/22/17 06:52 Troponin I 0.01 ng/mL (0.01-0.05) 07/19/17 23:45 C-Reactive Protein 0.2 mg/dL (0.0-0.9) 07/19/17 23:45 B-Natriuretic Peptide 109.0 pg/mL (5.0-100.0) H 07/19/17 23:45 Total Protein 6.4 gm/dL (6.0-8.3) 07/22/17 06:52 Albumin 3.3 gm/dL (3.7-5.3) L 07/22/17 06:52 Globulin 3.1 gm/dL 07/22/17 06:52 Albumin/Globulin Ratio 1.1 (1.0-1.8) 07/22/17 06:52 Triglycerides 197 mg/dL (<150) H 07/20/17 06:50 Cholesterol 134 mg/dL (<200) 07/20/17 06:50 LDL Cholesterol Direct 61 mg/dL (75-193) L 07/20/17 06:50 HDL Cholesterol 55 mg/dL (23-92) 07/20/17 06:50 Urine Source CATH 07/19/17 23:59 Urine Color YELLOW 07/19/17 23:59 Urine Clarity HAZY (CLEAR) 07/19/17 23:59 Urine pH 5.5 (4.6 - 8.0) 07/19/17 23:59 Ur Specific [place] 1.025 (1.005-1.030) 07/19/17 23:59 Urine Protein 30 mg/dL (NEGATIVE) H 07/19/17 23:59 Urine Glucose (UA) NEGATIVE mg/dL (NEGATIVE) 07/19/17 23:59 Urine Ketones NEGATIVE mg/dL (NEGATIVE) 07/19/17 23:59 Urine Blood MODERATE (NEGATIVE) H 07/19/17 23:59 Urine Nitrate NEGATIVE (NEGATIVE) 07/19/17 23:59 Urine Bilirubin NEGATIVE (NEGATIVE) 07/19/17 23:59 Urine Urobilinogen 1.0 E.U./dL (0.2 - 1.0) 07/19/17 23:59 Ur Leukocyte Esterase NEGATIVE (NEGATIVE) 07/19/17 23:59 Urine RBC 10-25 /hpf (0-5) H 07/19/17 23:59 Urine WBC 0-2 /hpf (0-5) 07/19/17 23:59 Ur Epithelial Cells NONE SEEN /lpf (FEW) 07/19/17 23:59 Urine Bacteria NONE SEEN /hpf (NONE SEEN) 07/19/17 23:59 Vancomycin Trough 5.3 ug/mL (10-20) L 07/21/17 01:32 - Physical Exam Vitals and I&O: Vital Signs Temp 98.3 F 07/22/17 08:00 Pulse 54 07/22/17 09:14 Resp 18 07/22/17 08:00 BP 97/72 07/22/17 09:14 Pulse Ox 97 07/22/17 08:00 Intake & Output 07/21/17 07/22/17 07/22/17 18:59 06:59 18:59 Intake Total 320 1407.334 Balance 320 1407.334 Intake: Intake, IV Amount 320 1407.334 D5-0.9%Ns 1,000 ml @ 80 220 1157.334 mls/hr IV .[id number] [facility] Rx #:[id number] Levofloxacin 500mg/100mL 100 500 mg In 100 ml @ 100 mls/hr IV Q24HR [facility] Rx#: [id number] Vancomycin HCl 0.75 gm In 250 Sodium Chloride 0.9% 250 ml @ 165 mls/hr IV Q12H [facility] Rx#:[id number] Other: Stool Characteristics Soft Soft Soft Formed Formed Formed Active Medications: Current Medications Acetaminophen (Tylenol 650mg/20.3ml Suspension) 650 mg GT Q4H PRN PRN Reason: for mild pain, temp >100. Stop: 09/18/17 10:29 Albuterol Sulfate (Albuterol 2.5mg/3ml Neb Ud) 0.083 mg HHN Q4HRT PRN PRN Reason: Congestion, Wheezing Stop: 09/18/17 10:10 Ascorbic Acid (Vitamin C) [address] [facility] Stop: 09/19/17 08:59 Last Admin: 07/22/17 09:02 Dose: Not Given Aspirin (Aspirin Chewable) [address] [facility] Stop: 09/19/17 08:59 Last Admin: 07/22/17 09:02 Dose: Not Given Benztropine Mesylate (Cogentin) [address] [facility] Stop: 09/18/17 16:59 Last Admin: 07/22/17 09:02 Dose: Not Given Bisacodyl (Dulcolax 10 Mg Supp) 10 mg RC DAILY PRN PRN Reason: Constipated & MOM uneffective Stop: 09/18/17 12:42 Calcium Carbonate (Calcium Carb) 1,[address] [facility] Stop: 09/18/17 13:59 Last Admin: 07/22/17 09:02 Dose: Not Given Carbamazepine (Tegretol) 200 mg GT TID [facility] PRN Reason: Protocol Stop: 09/18/17 13:59 Last Admin: 07/22/17 09:02 Dose: Not Given Cholecalciferol (Vitamin D3) 1,[address] [facility] Stop: 09/19/17 08:59 Last Admin: 07/22/17 09:02 Dose: Not Given Ferrous Sulfate (Iron) [address] [facility] Stop: 09/18/17 16:59 Last Admin: 07/22/17 09:02 Dose: Not Given Glycopyrrolate (Robinul) [address] [facility] Stop: 09/19/17 08:59 Last Admin: 07/22/17 09:03 Dose: Not Given Dextrose/Sodium Chloride (D5-0.9%Ns) 1,000 mls @ 80 mls/hr IV .[id number] [facility] Stop: 09/18/17 12:14 Last Admin: 07/22/17 02:35 Dose: 80 mls/hr Levofloxacin (Levaquin Pb) 500 mg in 100 mls @ 100 mls/hr IV Q24HR [facility] Stop: 09/18/17 12:14 Last Infusion: 07/21/17 18:27 Dose: Infused Vancomycin HCl 0.75 gm/ Sodium (Chloride) 250 mls @ 165 mls/hr IV Q12H [facility] Stop: 09/19/17 13:59 Last Admin: 07/22/17 02:34 Dose: 165 mls/hr Ibuprofen (Motrin Childrens) 400 mg GT Q6HR PRN PRN Reason: Pain (Mild) Stop: 09/18/17 10:21 Ipratropium [place] (Atrovent Neb 0.5mg/2.5ml) 0.5 mg HHN Q4HRT PRN PRN Reason: Shortness of Breath Stop: 09/18/17 10:59 Lactobacillus Rhamnosus (Culturelle) 1 each GT DAILY [facility] Stop: 09/19/17 08:59 Last Admin: 07/22/17 09:03 Dose: Not Given Levetiracetam (Keppra) 1,000 mg GT BID [facility] Stop: 09/18/17 16:59 Last Admin: 07/22/17 09:02 Dose: Not Given Loperamide HCl (Imodium 1mg/5ml Suspension) 2 mg GT Q6HR PRN PRN Reason: Diarrhea Stop: 09/18/17 12:48 Magnesium Hydroxide (Milk Of Magnesia) 30 ml GT DAILY PRN PRN Reason: Constipation Stop: 09/18/17 10:06 Metoprolol Tartrate (Lopressor) 25 mg GT DAILY [facility] Stop: 09/19/17 08:59 Last Admin: 07/22/17 09:14 Dose: Not Given Miscellaneous (Vancomycin Iv Per Pharmacy) 1 ea MC PRN JU[facility] Stop: 09/18/17 12:14 Miscellaneous (Probiotic Screen) 1 ea PRN PRN PRN Reason: PROTOCOL Stop: 09/18/17 14:45 Miscellaneous (Vte Chemical Prophylaxis Screen/ Admission) 1 ea PRN PRN PRN Reason: PROTOCOL Stop: 09/19/17 14:30 Multivitamins/Vitamin C (Theragran) 1 tab GT DAILY [facility] Stop: 09/19/17 08:59 Last Admin: 07/22/17 09:08 Dose: Not Given Mupirocin (Bactroban Oint) 1 appl NS BID [facility] Stop: 07/25/17 17:01 Last Admin: 07/22/17 09:25 Dose: 1 appl Pantoprazole Sodium (Protonix) 40 mg IVP BID [facility] Stop: 09/18/17 16:59 Last Admin: 07/22/17 09:02 Dose: Not Given Polyethylene Glycol (Miralax) 17 gm GT DAILY [facility] Stop: 09/19/17 08:59 Last Admin: 07/22/17 09:08 Dose: Not Given Potassium Chloride (Potassium Chloride Elixir) 20 meq GT DAILY [facility] Stop: 09/19/17 08:59 Last Admin: 07/22/17 09:08 Dose: Not Given Sodium Phosphate (Fleet Enema) 135 ml RC DAILY PRN PRN Reason: Constipation Stop: 09/18/17 10:19 General: weak, alert HEENT: NC/AT, PERRLA Neck: Supple Lungs: CTAB Cardiovascular: RRR, Normal S1, Normal S2, without murmur Abdomen: soft, non-tender, non-distended, +GT, positive bowel sound Extremities: excoriation Neurological: unable to follow command - Procedures Procedures: Procedures Procedure Code Date CHANGE FEEDING DEVICE IN UP INTEST TRACT, PROFESSOR OF ARCHAEOLOGY APPROACH [id number] 09/03/16 INSERT INDWELLING CATH 57.94 12/31/09 INSERT PICC CATH 97995 05/18/14 INSERTION OF FEEDING DEVICE INTO STOMACH, ENDO [id number] 10/11/16 INSERTION OF INFUSION DEVICE INTO R ATRIUM, PERC APPROACH 77F364C 10/11/16 VENOUS CATHETERIZATION NEC 38.93 05/18/14 Internal Medicine Assmt/Plan - Assessment Assessment: LEUKOCYTOSIS SEPSIS ASPIRATION ACUTE GI BLEED HYPONATREMIA HYPOKALEMIA ACUTE RENAL INSUFFICIENCY MRSA NARES INTRA-ABDOMINAL GAS - Plan Plan: aspiration precautions ivf for hydration supplemental oxygen and bronchodilators gi follow up bactroban bid follow up labs in am Nutritional Asmnt/Malnutr-PDOC - Dietary Evaluation Malnutrition Findings (Please click <Entered> for more info): Nutritional Asmnt/Malnutrition Start: 07/21/17 17: 01 Text: Status: Active Freq: Document 07/21/17 17:01 LCHENG (Rec: 07/21/17 17:20 [email or web address] [id number]) Nutritional Asmnt/Malnutrition Patient General Information Nutritional Screening High Risk Consult Diagnosis sepsis, vomiting Pertinent Medical Hx/Surgical Hx mental retardation, cerebral palsy, HTN Subjective Information consult received for low dunia score 14. Pt was admitted from SNF for coffee- ground emesis. Non-verbal noted. Spoke to nurse, pt is currently NPO, PEG tube was leaking, will fix it and possible restart TF soon. Current Diet Order/ Nutrition Support NPO Pertinent Medications vitamin C, Calcium, vitamin D3 , D5, Iron, culturelle, MVI, vancomycin (PO meds not given d/t NPO) Pertinent Labs 07/21 Na 135, K 3.5, Cl 108H, BUN 18, Cr 0.6, Glu 130H, POC 132, AST 51H, ALT 70H, Alb 3.2 Nutritional Hx/Data Height 4 ft 7 in Height (Calculated Centimeters) 139.7 Current Weight (lbs) 83 lb 14.4 oz Weight (Calculated Kilograms) 38.1 Weight (Calculated Grams) 10320.4 % Usual Body Weight 90 % [place] Body Weight 93 Body Mass Index (BMI) 19.5 Weight Status Approriate GI Symptoms Last BM 07/21 Usual diet at home Jevity 1.2 at 53ml/hr x 16hr daily from 4pm-8am, providing 848ml total volume, 1017kcal Skin Integrity/Comment: intact Estimated Nutritional Goals BEE in Kcals: Using Current wt Kcals Calculated 1140-1330kcal (30-35kcal/kg) Protein: Using Current wt Protein g/k.2-1.4 Protein Calculated 46-53 Fluid: ml 1382-2665 Nutritional Problem 1. Problem Problem increased nutrition needs ( calorie and protein) Etiology increased demand for healing Signs/Symptoms: dx of sepsis Malnutrition Alert Protein-Calorie Malnutrition N/A Is there a minimum of two criteria No selected? Query Text:Check all the applicable criteria. A minimum of two criteria are recommended for diagnosis of either severe or non-severe malnutrition. Intervention/Recommendation Comments 1. monitor NPO status. 2. If TF needed, recommend starting FiberSource HN at 20ml/hr for first 24hr, increased 10ml/hr q6hr to goal rate of 40ml/hr x 24hr daily. It provides 960ml total volume, 1152kcal and 52g protein, meeting 100% of nutritional needs. 3. F/U as high risk in 2-3 days, 07/23-07/24 Expected Outcomes/Goals Expected Outcomes/Goals 1. pt to meet at least 75% of nutritional needs in 2-3 days 2. wt stability, skin to remain intact, labs to improve
[2017-07-22] MEDS ORDERED: Lidocaine 2% Gel 5 mL TP ONE (11:25)
[2017-07-22] MEDS: Levofloxacin 500mg/100mL 500 MG/100 ML BAG IV SCH (11:35)
--- NOTE | 2017-07-22 14:21 | Operative Report ---
DATE OF SURGERY: 07/22/2017 INPATIENT GASTROINTESTINAL PROCEDURE NAME OF PROCEDURE: EGD with biopsy and G-tube change. REFERRING PHYSICIAN: Blayne Long DO REASON FOR PROCEDURE: Upper GI bleed and coffee ground emesis. CONSENT: Risks, benefits, alternatives, nature, indication, possible outcomes were discussed. Mentioned bleeding, infection, perforation, , disability, cardiopulmonary distress and arrest, missed lesion and cancers, need for surgery. The patient's agreeing and republican provided informed consent. PREOPERATIVE DIAGNOSES: Upper gastrointestinal bleed, coffee ground emesis, malfunctioning G-tube. POSTOPERATIVE DIAGNOSES: Mild esophagitis, mild gastritis, small hiatal hernia, and G-tube change. MEDICATIONS: Provided by anesthesiologist due to patient's combativeness. DESCRIPTION OF PROCEDURE: The patient was placed on her left side. Upper endoscope advanced from mouth to second portion of duodenum, which appeared to be normal. Scope brought back in stomach. Retroflexion view of fundus, cardia, lesser curvature, small hiatal hernia. Scope was straightened. Antral biopsies were taken. G-tube was identified and was removed after deflating internal balloon and pulled out. A new 22-Romanian gastrostomy tube was lubricated the tip inserted through the gastrocutaneous fistula entering stomach lumen on endoscope view. The balloon was inflated with 20 mL of sterile saline. The outer flange was secured in position. Balloon was confirmed to be satisfactory and placed in the stomach. Scope was slowly withdrawn through esophagus and removed. COMPLICATIONS: None. FINDINGS: 1. GE junction at 32 cm with mild distal esophagitis, not actively bleeding. 2. Mild gastritis, status post biopsy. 3. G-tube change to 22-Romanian gastrostomy. 4. Normal duodenum. RECOMMENDATIONS: 1. Follow H and H. 2. Provide the patient with Protonix. 3. May use G-tube. Thank you for allowing me to participate. Please call me if you have any questions. JOB# [id number]
[2017-07-23] MEDS: D5-0.9%NS 1,000 ML IV SCH (00:54)
[2017-07-23 07:05] LABS: HEMATOCRIT 31.7 % (41.0-60); HEMOGLOBIN 10.6 gm/dL (12-16); MEAN CELL VOLUME 87.6 fl (81-100); MEAN CORPUSCULAR HEMOGLOBIN 29.3 pg (27.0-31.0); MEAN CORPUSCULAR HGB CONC 33.5 pg (28.0-36.0); RED BLOOD COUNT 3.62 Mil/cmm (3.80-5.10); RED CELL DISTRIBUTION WIDTH 13.4 % (11.5-20.0)
[2017-07-23 07:06] LABS: WHITE BLOOD COUNT 13.7 Th/cmm (4.8-10.8)
[2017-07-23 07:30] LABS: ANION GAP 11.3 (7.0-16.0); BUN - UREA NITROGEN 15 mg/dL (7-25); CALCIUM SERUM 8.4 mg/dL (8.6-10.3); CHLORIDE 115 mEq/L (98-107); CREATININE - SERUM 0.6 mg/dL (0.6-1.2); POTASSIUM SERUM 3.3 mEq/L (3.5-5.1); SODIUM SERUM 146 mEq/L (136-145)
[2017-07-23] MEDS: Ferrous Sulfate 300 MG/5 ML UDC GT SCH ×3 (07:35→17:26)
[2017-07-23 07:40] LABS: GLUCOSE 93 mg/dL (70-105)
[2017-07-23 08:11] LABS: BAND NEUTROPHILE 2 % (0-10); NEUTROPHILS 80 % (40-80); TOTAL CELLS COUNTED 100
[2017-07-23 08:12] LABS: PLATELET ESTIMATE ADEQUATE (NORMAL); PLATELET MORPHOLOGY NORMAL (NORMAL)
[2017-07-23] MEDS: Aspirin 81mg Chewable Tab GT SCH (08:32)
[2017-07-23] MEDS: Multivitamin Tab GT SCH (08:32)
[2017-07-23] MEDS: Lactobacillus Rhamnosus 10 Billion CFU Capsule GT SCH (08:33)
[2017-07-23] MEDS: POLYETHYLENE GLYCOL 3350 17 GM PACK GT SCH (08:33)
[2017-07-23] MEDS: Potassium Chloride Elixir 20 mEq /15 mL UDC GT SCH (08:33)
--- NOTE | 2017-07-23 09:53 | Internal Medicine Prog Note ---
Internal Medicine Subjective - Subjective Service Date: 07/23/17 Patient is:: awake, non-verbal Per staff patient has:: no adverse event, tolerating meds Internal Medicine Objective - Results Result Diagrams: 07/23/17 06:59 07/23/17 06:15 Recent Labs: Laboratory Last Values WBC 13.7 Th/cmm (4.8-10.8) H D 07/23/17 06:59 RBC 3.62 Mil/cmm (3.80-5.10) L 07/23/17 06:59 Hgb 10.6 gm/dL (12-16) L 07/23/17 06:59 Hct 31.7 % (41.0-60) L 07/23/17 06:59 MCV 87.6 fl (81-100) 07/23/17 06:59 MCH 29.3 pg (27.0-31.0) 07/23/17 06:59 MCHC Differential 33.5 pg (28.0-36.0) 07/23/17 06:59 RDW 13.4 % (11.5-20.0) 07/23/17 06:59 Plt Count 911 EMERGENCY DISPATCHER 07/23/17 06:59 MPV 9.0 fl 07/22/17 06:52 Neutrophils % 82.0 % (40.0-80.0) H 07/22/17 06:52 Band Neutrophils % 2 % (0-10) 07/23/17 06:59 Lymphocytes % 8.4 % (20.0-50.0) L 07/22/17 06:52 Monocytes % 8.7 % (2.0-10.0) 07/22/17 06:52 Eosinophils % 0.2 % (0.0-5.0) 07/22/17 06:52 Basophils % 0.7 % (0.0-2.0) 07/22/17 06:52 Neutrophils (Manual) 80 % (40-80) 07/23/17 06:59 Lymphocytes 13 % (20-50) L 07/23/17 06:59 Monocytes 5 % (2-10) 07/23/17 06:59 Eosinophils 0 % (0-5) 07/19/17 23:45 Basophils 0 % (0-3) 07/19/17 23:45 Platelet Estimate ADEQUATE (NORMAL) 07/23/17 06:59 Platelet Morphology NORMAL (NORMAL) 07/23/17 06:59 RBC Morph Micro Appear NORMAL (NORMAL) 07/19/17 23:45 PT 12.8 SECONDS (9.5-11.5) H 07/22/17 06:52 INR 1.22 (0.5-1.4) 07/22/17 06:52 PTT (Actin FS) 23.8 SECONDS (26.0-38.0) L 07/21/17 06:20 Sodium 146 mEq/L (136-145) H 07/23/17 06:15 Potassium 3.3 mEq/L (3.5-5.1) L 07/23/17 06:15 Chloride 115 mEq/L (98-107) H 07/23/17 06:15 Carbon Dioxide 23.0 mEq/L (21.0-31.0) 07/23/17 06:15 Anion Gap 11.3 (7.0-16.0) 07/23/17 06:15 BUN 15 mg/dL (7-25) 07/23/17 06:15 Creatinine 0.6 mg/dL (0.6-1.2) 07/23/17 06:15 Est GFR ( Amer) > 60.0 ml/min (>90) 07/23/17 06:15 Est GFR (Non-Af Amer) > 60.0 ml/min 07/23/17 06:15 BUN/Creatinine Ratio 25.0 07/23/17 06:15 Glucose 93 mg/dL (70-105) D 07/23/17 06:15 POC Glucose 132 MG/DL (70 - 105) H 07/21/17 05:09 Whole Bld Lactic Acid 1.01 mmol/L (0.60-1.99) 07/19/17 23:45 Calcium 8.4 mg/dL (8.6-10.3) L 07/23/17 06:15 Magnesium 2.6 mg/dL (1.9-2.7) 07/21/17 06:20 Total Bilirubin 0.9 mg/dL (0.3-1.0) 07/22/17 06:52 Direct Bilirubin 0.42 mg/dL (0.0-0.2) H 07/22/17 06:52 AST 70 U/L (13-39) H 07/22/17 06:52 ALT 96 U/L (7-52) H 07/22/17 06:52 Alkaline Phosphatase 60 U/L (34-104) 07/22/17 06:52 Troponin I 0.01 ng/mL (0.01-0.05) 07/19/17 23:45 C-Reactive Protein 0.2 mg/dL (0.0-0.9) 07/19/17 23:45 B-Natriuretic Peptide 109.0 pg/mL (5.0-100.0) H 07/19/17 23:45 Total Protein 6.4 gm/dL (6.0-8.3) 07/22/17 06:52 Albumin 3.3 gm/dL (3.7-5.3) L 07/22/17 06:52 Globulin 3.1 gm/dL 07/22/17 06:52 Albumin/Globulin Ratio 1.1 (1.0-1.8) 07/22/17 06:52 Triglycerides 197 mg/dL (<150) H 07/20/17 06:50 Cholesterol 134 mg/dL (<200) 07/20/17 06:50 LDL Cholesterol Direct 61 mg/dL (75-193) L 07/20/17 06:50 HDL Cholesterol 55 mg/dL (23-92) 07/20/17 06:50 Urine Source CATH 07/19/17 23:59 Urine Color YELLOW 07/19/17 23:59 Urine Clarity HAZY (CLEAR) 07/19/17 23:59 Urine pH 5.5 (4.6 - 8.0) 07/19/17 23:59 Ur Specific [place] 1.025 (1.005-1.030) 07/19/17 23:59 Urine Protein 30 mg/dL (NEGATIVE) H 07/19/17 23:59 Urine Glucose (UA) NEGATIVE mg/dL (NEGATIVE) 07/19/17 23:59 Urine Ketones NEGATIVE mg/dL (NEGATIVE) 07/19/17 23:59 Urine Blood MODERATE (NEGATIVE) H 07/19/17 23:59 Urine Nitrate NEGATIVE (NEGATIVE) 07/19/17 23:59 Urine Bilirubin NEGATIVE (NEGATIVE) 07/19/17 23:59 Urine Urobilinogen 1.0 E.U./dL (0.2 - 1.0) 07/19/17 23:59 Ur Leukocyte Esterase NEGATIVE (NEGATIVE) 07/19/17 23:59 Urine RBC 10-25 /hpf (0-5) H 07/19/17 23:59 Urine WBC 0-2 /hpf (0-5) 07/19/17 23:59 Ur Epithelial Cells NONE SEEN /lpf (FEW) 07/19/17 23:59 Urine Bacteria NONE SEEN /hpf (NONE SEEN) 07/19/17 23:59 Vancomycin Trough 9.0 ug/mL (10-20) L 07/22/17 12:55 - Physical Exam Vitals and I&O: Vital Signs Temp 98.4 F 07/23/17 04:00 Pulse 82 07/23/17 08:32 Resp 18 07/23/17 07:30 BP 124/52 07/23/17 08:32 Pulse Ox 97 07/23/17 07:30 Intake & Output 07/22/17 07/23/17 07/23/17 18:59 06:59 18:59 Intake Total 1100 250 Output Total 550 Balance 1100 -300 Weight (lbs) 87 lb 4.8 oz Intake: Intake, IV Amount 1100 250 D5-0.9%Ns 1,000 ml @ 80 1000 mls/hr IV .[id number] [facility] Rx #:[id number] Levofloxacin 500mg/100mL 100 500 mg In 100 ml @ 100 mls/hr IV Q24HR [facility] Rx#: [id number] Vancomycin HCl 750 mg In 250 Sodium Chloride 0.9% 250 ml @ 167 mls/hr IV Q8H [facility] Rx#:[id number] Output: Urine 550 Other: Stool Characteristics Soft Formed Active Medications: Current Medications Acetaminophen (Tylenol 650mg/20.3ml Suspension) 650 mg GT Q4H PRN PRN Reason: for mild pain, temp >100. Stop: 09/18/17 10:29 Albuterol Sulfate (Albuterol 2.5mg/3ml Neb Ud) 0.083 mg HHN Q4HRT PRN PRN Reason: Congestion, Wheezing Stop: 09/18/17 10:10 Ascorbic Acid (Vitamin C) 500 mg GT DAILY [facility] Stop: 09/19/17 08:59 Last Admin: 07/23/17 08:33 Dose: Not Given Aspirin (Aspirin Chewable) 81 mg GT DAILY [facility] Stop: 09/19/17 08:59 Last Admin: 07/23/17 08:32 Dose: Not Given Benztropine Mesylate (Cogentin) 1 mg GT BID [facility] Stop: 09/18/17 16:59 Last Admin: 07/22/17 20:37 Dose: 1 mg Bisacodyl (Dulcolax 10 Mg Supp) 10 mg RC DAILY PRN PRN Reason: Constipated & MOM uneffective Stop: 09/18/17 12:42 Calcium Carbonate (Calcium Carb) 1,200 mg GT TID [facility] Stop: 09/18/17 13:59 Last Admin: 07/23/17 08:32 Dose: Not Given Carbamazepine (Tegretol) 200 mg GT TID [facility] PRN Reason: Protocol Stop: 09/18/17 13:59 Last Admin: 07/22/17 20:37 Dose: 200 mg Cholecalciferol (Vitamin D3) 1,000 iu GT DAILY [facility] Stop: 09/19/17 08:59 Last Admin: 07/23/17 08:32 Dose: Not Given Ferrous Sulfate (Iron) 300 mg GT BID [facility] Stop: 09/18/17 16:59 Last Admin: 07/23/17 07:35 Dose: Not Given Glycopyrrolate (Robinul) 2 mg GT DAILY [facility] Stop: 09/19/17 08:59 Last Admin: 07/23/17 08:32 Dose: Not Given Dextrose/Sodium Chloride (D5-0.9%Ns) 1,000 mls @ 80 mls/hr IV .[id number] [facility] Stop: 09/18/17 12:14 Last Admin: 07/23/17 00:54 Dose: 80 mls/hr Levofloxacin (Levaquin Pb) 500 mg in 100 mls @ 100 mls/hr IV Q24HR [facility] Stop: 09/18/17 12:14 Last Infusion: 07/22/17 12:35 Dose: Infused Vancomycin HCl 750 mg/ Sodium (Chloride) 250 mls @ 167 mls/hr IV Q8H [facility] Stop: 09/20/17 19:59 Last Admin: 07/23/17 04:27 Dose: 167 mls/hr Ibuprofen (Motrin Childrens) 400 mg GT Q6HR PRN PRN Reason: Pain (Mild) Stop: 09/18/17 10:21 Ipratropium [place] (Atrovent Neb 0.5mg/2.5ml) 0.5 mg HHN Q4HRT PRN PRN Reason: Shortness of Breath Stop: 09/18/17 10:59 Lactobacillus Rhamnosus (Culturelle) 1 each GT DAILY [facility] Stop: 09/19/17 08:59 Last Admin: 07/23/17 08:33 Dose: Not Given Levetiracetam (Keppra) 1,000 mg GT BID [facility] Stop: 09/18/17 16:59 Last Admin: 07/22/17 20:35 Dose: 1,000 mg Loperamide HCl (Imodium 1mg/5ml Suspension) 2 mg GT Q6HR PRN PRN Reason: Diarrhea Stop: 09/18/17 12:48 Lorazepam (Ativan) 0.5 mg IVP Q6HR PRN; Protocol PRN Reason: Agitation Stop: 09/20/17 17:34 Last Admin: 07/23/17 08:34 Dose: 0.5 mg Magnesium Hydroxide (Milk Of Magnesia) 30 ml GT DAILY PRN PRN Reason: Constipation Stop: 09/18/17 10:06 Metoprolol Tartrate (Lopressor) 25 mg GT DAILY [facility] Stop: 09/19/17 08:59 Last Admin: 07/23/17 08:32 Dose: Not Given Miscellaneous (Vancomycin Iv Per Pharmacy) 1 ea MC PRN [facility] Stop: 09/18/17 12:14 Miscellaneous (Probiotic Screen) 1 ea PRN PRN PRN Reason: PROTOCOL Stop: 09/18/17 14:45 Miscellaneous (Vte Chemical Prophylaxis Screen/ Admission) 1 ea PRN PRN PRN Reason: PROTOCOL Stop: 09/19/17 14:30 Multivitamins/Vitamin C (Theragran) 1 tab GT DAILY [facility] Stop: 09/19/17 08:59 Last Admin: 07/23/17 08:32 Dose: Not Given Mupirocin (Bactroban Oint) 1 appl NS BID [facility] Stop: 07/25/17 17:01 Last Admin: 07/23/17 08:32 Dose: 1 appl Pantoprazole Sodium (Protonix) 40 mg IVP BID [facility] Stop: 09/18/17 16:59 Last Admin: 07/23/17 08:33 Dose: 40 mg Polyethylene Glycol (Miralax) 17 gm GT DAILY [facility] Stop: 09/19/17 08:59 Last Admin: 07/23/17 08:33 Dose: Not Given Potassium Chloride (Potassium Chloride Elixir) 20 meq GT DAILY [facility] Stop: 09/19/17 08:59 Last Admin: 07/23/17 08:33 Dose: Not Given Sodium Phosphate (Fleet Enema) 135 ml RC DAILY PRN PRN Reason: Constipation Stop: 09/18/17 10:19 General: weak, alert HEENT: NC/AT, PERRLA Neck: Supple Lungs: CTAB Cardiovascular: RRR, Normal S1, Normal S2, without murmur Abdomen: soft, non-tender, non-distended, +GT, positive bowel sound Extremities: excoriation Neurological: unable to follow command - Procedures Procedures: Procedures Procedure Code Date CHANGE FEEDING DEVICE IN UP INTEST TRACT, MEDICAL COST CONSULTANT APPROACH 5Z32IMQ 09/03/16 INSERT INDWELLING CATH 57.94 12/31/09 INSERT PICC CATH 23224 05/18/14 INSERTION OF FEEDING DEVICE INTO STOMACH, ENDO [id number] 10/11/16 INSERTION OF INFUSION DEVICE INTO R ATRIUM, PERC APPROACH 03L285F 10/11/16 VENOUS CATHETERIZATION NEC 38.93 05/18/14 Internal Medicine Assmt/Plan - Assessment Assessment: LEUKOCYTOSIS SEPSIS ASPIRATION ACUTE GI BLEED HYPONATREMIA HYPOKALEMIA ACUTE RENAL INSUFFICIENCY MRSA NARES INTRA-ABDOMINAL GAS - Plan Plan: HIDA scan today aspiration precautions ivf for hydration supplemental oxygen and bronchodilators follow up labs in am Nutritional Asmnt/Malnutr-PDOC - Dietary Evaluation Malnutrition Findings (Please click <Entered> for more info): Nutritional Asmnt/Malnutrition Start: 07/21/17 17: 01 Text: Status: Active Freq: Document 07/21/17 17:01 LCHENG (Rec: 07/21/17 17:20 [email or web address] [id number]) Nutritional Asmnt/Malnutrition Patient General Information Nutritional Screening High Risk Consult Diagnosis sepsis, vomiting Pertinent Medical Hx/Surgical Hx mental retardation, cerebral palsy, HTN Subjective Information consult received for low dunia score 14. Pt was admitted from SNF for coffee- ground emesis. Non-verbal noted. Spoke to nurse, pt is currently NPO, PEG tube was leaking, will fix it and possible restart TF soon. Current Diet Order/ Nutrition Support NPO Pertinent Medications vitamin C, Calcium, vitamin D3 , D5, Iron, culturelle, MVI, vancomycin (PO meds not given d/t NPO) Pertinent Labs 07/21 Na 135, K 3.5, Cl 108H, BUN 18, Cr 0.6, Glu 130H, POC 132, AST 51H, ALT 70H, Alb 3.2 Nutritional Hx/Data Height 4 ft 7 in Height (Calculated Centimeters) 139.7 Current Weight (lbs) 83 lb 14.4 oz Weight (Calculated Kilograms) 38.1 Weight (Calculated Grams) 94155.4 % Usual Body Weight 90 % [place] Body Weight 93 Body Mass Index (BMI) 19.5 Weight Status Approriate GI Symptoms Last BM 07/21 Usual diet at home Jevity 1.2 at 53ml/hr x 16hr daily from 4pm-8am, providing 848ml total volume, 1017kcal Skin Integrity/Comment: intact Estimated Nutritional Goals BEE in Kcals: Using Current wt Kcals Calculated 1140-1330kcal (30-35kcal/kg) Protein: Using Current wt Protein g/k.2-1.4 Protein Calculated 46-53 Fluid: ml 1005-4866 Nutritional Problem 1. Problem Problem increased nutrition needs ( calorie and protein) Etiology increased demand for healing Signs/Symptoms: dx of sepsis Malnutrition Alert Protein-Calorie Malnutrition N/A Is there a minimum of two criteria No selected? Query Text:Check all the applicable criteria. A minimum of two criteria are recommended for diagnosis of either severe or non-severe malnutrition. Intervention/Recommendation Comments 1. monitor NPO status. 2. If TF needed, recommend starting FiberSource HN at 20ml/hr for first 24hr, increased 10ml/hr q6hr to goal rate of 40ml/hr x 24hr daily. It provides 960ml total volume, 1152kcal and 52g protein, meeting 100% of nutritional needs. 3. F/U as high risk in 2-3 days, 07/23-07/24 Expected Outcomes/Goals Expected Outcomes/Goals 1. pt to meet at least 75% of nutritional needs in 2-3 days 2. wt stability, skin to remain intact, labs to improve
[2017-07-23] MEDS ORDERED: KCL 20mEq/100mL Premix 20 MEQ/100 ML PIGGYBACK IV ONE (09:54)
[2017-07-23] MEDS: Levetiracetam 500 mg/5mL 5mL UDC GT SCH ×2 (10:06→17:26)
[2017-07-23] MEDS: carBAMazepine 200 mg/10 mL UDC GT SCH ×2 (10:06→14:35)
[2017-07-23] MEDS: Levofloxacin 500mg/100mL 500 MG/100 ML BAG IV SCH (11:50)
--- NOTE | 2017-07-23 15:55 | Pathology Report ---
[id number] Collection Date: 07/22/2017 Surgeon: Dr. Shira Bowers Specimen Description: Antrum biopsy Gross Description: Received in formalin is a single steve soft tissue fragment measuring 0.2 cm in greatest dimension. Totally submitted in one cassette. Microscopic Description: The histologic sections show gastric mucosa with mild chronic inflammation present consisting of lymphocytes and plasma cells. The Giemsa stain shows no evidence for Helicobacter pylori. Diagnosis: 1. Mild chronic gastritis, antrum biopsy. 2. The Giemsa stain is negative for Helicobacter pylori. PSYCHIATRIC# [id number]
--- NOTE | 2017-07-23 16:34 | GI Progress Note ---
Subjective - Review of Systems Subjective: NO EVENTS NO GI BLEEDING Objective - Results Result Diagrams: 07/23/17 06:59 07/23/17 06:15 Recent Labs: Laboratory Last Values WBC 13.7 Th/cmm (4.8-10.8) H D 07/23/17 06:59 RBC 3.62 Mil/cmm (3.80-5.10) L 07/23/17 06:59 Hgb 10.6 gm/dL (12-16) L 07/23/17 06:59 Hct 31.7 % (41.0-60) L 07/23/17 06:59 MCV 87.6 fl (81-100) 07/23/17 06:59 MCH 29.3 pg (27.0-31.0) 07/23/17 06:59 MCHC Differential 33.5 pg (28.0-36.0) 07/23/17 06:59 RDW 13.4 % (11.5-20.0) 07/23/17 06:59 Plt Count STAIN DIPPER 07/23/17 06:59 MPV 9.0 fl 07/22/17 06:52 Neutrophils % 82.0 % (40.0-80.0) H 07/22/17 06:52 Band Neutrophils % 2 % (0-10) 07/23/17 06:59 Lymphocytes % 8.4 % (20.0-50.0) L 07/22/17 06:52 Monocytes % 8.7 % (2.0-10.0) 07/22/17 06:52 Eosinophils % 0.2 % (0.0-5.0) 07/22/17 06:52 Basophils % 0.7 % (0.0-2.0) 07/22/17 06:52 Neutrophils (Manual) 80 % (40-80) 07/23/17 06:59 Lymphocytes 13 % (20-50) L 07/23/17 06:59 Monocytes 5 % (2-10) 07/23/17 06:59 Eosinophils 0 % (0-5) 07/19/17 23:45 Basophils 0 % (0-3) 07/19/17 23:45 Platelet Estimate ADEQUATE (NORMAL) 07/23/17 06:59 Platelet Morphology NORMAL (NORMAL) 07/23/17 06:59 RBC Morph Micro Appear NORMAL (NORMAL) 07/19/17 23:45 PT 12.8 SECONDS (9.5-11.5) H 07/22/17 06:52 INR 1.22 (0.5-1.4) 07/22/17 06:52 PTT (Actin FS) 23.8 SECONDS (26.0-38.0) L 07/21/17 06:20 Sodium 146 mEq/L (136-145) H 07/23/17 06:15 Potassium 3.3 mEq/L (3.5-5.1) L 07/23/17 06:15 Chloride 115 mEq/L (98-107) H 07/23/17 06:15 Carbon Dioxide 23.0 mEq/L (21.0-31.0) 07/23/17 06:15 Anion Gap 11.3 (7.0-16.0) 07/23/17 06:15 BUN 15 mg/dL (7-25) 07/23/17 06:15 Creatinine 0.6 mg/dL (0.6-1.2) 07/23/17 06:15 Est GFR ( Amer) > 60.0 ml/min (>90) 07/23/17 06:15 Est GFR (Non-Af Amer) > 60.0 ml/min 07/23/17 06:15 BUN/Creatinine Ratio 25.0 07/23/17 06:15 Glucose 93 mg/dL (70-105) D 07/23/17 06:15 POC Glucose 132 MG/DL (70 - 105) H 07/21/17 05:09 Whole Bld Lactic Acid 1.01 mmol/L (0.60-1.99) 07/19/17 23:45 Calcium 8.4 mg/dL (8.6-10.3) L 07/23/17 06:15 Magnesium 2.6 mg/dL (1.9-2.7) 07/21/17 06:20 Total Bilirubin 0.9 mg/dL (0.3-1.0) 07/22/17 06:52 Direct Bilirubin 0.42 mg/dL (0.0-0.2) H 07/22/17 06:52 AST 70 U/L (13-39) H 07/22/17 06:52 ALT 96 U/L (7-52) H 07/22/17 06:52 Alkaline Phosphatase 60 U/L (34-104) 07/22/17 06:52 Troponin I 0.01 ng/mL (0.01-0.05) 07/19/17 23:45 C-Reactive Protein 0.2 mg/dL (0.0-0.9) 07/19/17 23:45 B-Natriuretic Peptide 109.0 pg/mL (5.0-100.0) H 07/19/17 23:45 Total Protein 6.4 gm/dL (6.0-8.3) 07/22/17 06:52 Albumin 3.3 gm/dL (3.7-5.3) L 07/22/17 06:52 Globulin 3.1 gm/dL 07/22/17 06:52 Albumin/Globulin Ratio 1.1 (1.0-1.8) 07/22/17 06:52 Triglycerides 197 mg/dL (<150) H 07/20/17 06:50 Cholesterol 134 mg/dL (<200) 07/20/17 06:50 LDL Cholesterol Direct 61 mg/dL (75-193) L 07/20/17 06:50 HDL Cholesterol 55 mg/dL (23-92) 07/20/17 06:50 Urine Source CATH 07/19/17 23:59 Urine Color YELLOW 07/19/17 23:59 Urine Clarity HAZY (CLEAR) 07/19/17 23:59 Urine pH 5.5 (4.6 - 8.0) 07/19/17 23:59 Ur Specific [place] 1.025 (1.005-1.030) 07/19/17 23:59 Urine Protein 30 mg/dL (NEGATIVE) H 07/19/17 23:59 Urine Glucose (UA) NEGATIVE mg/dL (NEGATIVE) 07/19/17 23:59 Urine Ketones NEGATIVE mg/dL (NEGATIVE) 07/19/17 23:59 Urine Blood MODERATE (NEGATIVE) H 07/19/17 23:59 Urine Nitrate NEGATIVE (NEGATIVE) 07/19/17 23:59 Urine Bilirubin NEGATIVE (NEGATIVE) 07/19/17 23:59 Urine Urobilinogen 1.0 E.U./dL (0.2 - 1.0) 07/19/17 23:59 Ur Leukocyte Esterase NEGATIVE (NEGATIVE) 07/19/17 23:59 Urine RBC 10-25 /hpf (0-5) H 07/19/17 23:59 Urine WBC 0-2 /hpf (0-5) 07/19/17 23:59 Ur Epithelial Cells NONE SEEN /lpf (FEW) 07/19/17 23:59 Urine Bacteria NONE SEEN /hpf (NONE SEEN) 07/19/17 23:59 Vancomycin Trough 9.0 ug/mL (10-20) L 07/22/17 12:55 - Physical Exam Vitals and I&O: Vital Signs Temp 97.4 F 07/23/17 15:57 Pulse 64 07/23/17 15:57 Resp 18 07/23/17 15:57 BP 132/64 07/23/17 15:57 Pulse Ox 99 07/23/17 15:57 Intake & Output 07/22/17 07/23/17 07/23/17 18:59 06:59 18:59 Intake Total 1100 250 Output Total 550 Balance 1100 -300 Weight (lbs) 39.599 kg Intake: Intake, IV Amount 1100 250 D5-0.9%Ns 1,000 ml @ 80 1000 mls/hr IV .[id number] [facility] Rx #:[id number] Levofloxacin 500mg/100mL 100 500 mg In 100 ml @ 100 mls/hr IV Q24HR [facility] Rx#: [id number] Vancomycin HCl 750 mg In 250 Sodium Chloride 0.9% 250 ml @ 167 mls/hr IV Q8H [facility] Rx#:[id number] Output: Urine 550 Other: Stool Characteristics Soft Soft Formed Formed Active Medications: Current Medications Acetaminophen (Tylenol 650mg/20.3ml Suspension) 650 mg GT Q4H PRN PRN Reason: for mild pain, temp >100. Stop: 09/18/17 10:29 Albuterol Sulfate (Albuterol 2.5mg/3ml Neb Ud) 0.083 mg HHN Q4HRT PRN PRN Reason: Congestion, Wheezing Stop: 09/18/17 10:10 Ascorbic Acid (Vitamin C) 500 mg GT DAILY [facility] Stop: 09/19/17 08:59 Last Admin: 07/23/17 08:33 Dose: Not Given Aspirin (Aspirin Chewable) 81 mg GT DAILY [facility] Stop: 09/19/17 08:59 Last Admin: 07/23/17 08:32 Dose: Not Given Benztropine Mesylate (Cogentin) 1 mg GT BID [facility] Stop: 09/18/17 16:59 Last Admin: 07/23/17 10:06 Dose: Not Given Bisacodyl (Dulcolax 10 Mg Supp) 10 mg RC DAILY PRN PRN Reason: Constipated & MOM uneffective Stop: 09/18/17 12:42 Calcium Carbonate (Calcium Carb) 1,200 mg GT TID [facility] Stop: 09/18/17 13:59 Last Admin: 07/23/17 14:35 Dose: Not Given Carbamazepine (Tegretol) 200 mg GT TID [facility] PRN Reason: Protocol Stop: 09/18/17 13:59 Last Admin: 07/23/17 14:35 Dose: Not Given Cholecalciferol (Vitamin D3) 1,000 iu GT DAILY [facility] Stop: 09/19/17 08:59 Last Admin: 07/23/17 08:32 Dose: Not Given Ferrous Sulfate (Iron) 300 mg GT BID [facility] Stop: 09/18/17 16:59 Last Admin: 07/23/17 10:06 Dose: Not Given Glycopyrrolate (Robinul) 2 mg GT DAILY [facility] Stop: 09/19/17 08:59 Last Admin: 07/23/17 08:32 Dose: Not Given Vancomycin HCl 750 mg/ Sodium (Chloride) 250 mls @ 167 mls/hr IV ONCE ONE Stop: 07/24/17 00:29 Vancomycin HCl 750 mg/ Sodium (Chloride) 250 mls @ 167 mls/hr IV Q8H [facility] Stop: 09/22/17 07:59 Ibuprofen (Motrin Childrens) 400 mg GT Q6HR PRN PRN Reason: Pain (Mild) Stop: 09/18/17 10:21 Ipratropium [place] (Atrovent Neb 0.5mg/2.5ml) 0.5 mg HHN Q4HRT PRN PRN Reason: Shortness of Breath Stop: 09/18/17 10:59 Lactobacillus Rhamnosus (Culturelle) 1 each GT DAILY [facility] Stop: 09/19/17 08:59 Last Admin: 07/23/17 08:33 Dose: Not Given Levetiracetam (Keppra) 1,000 mg GT BID [facility] Stop: 09/18/17 16:59 Last Admin: 07/23/17 10:06 Dose: Not Given Loperamide HCl (Imodium 1mg/5ml Suspension) 2 mg GT Q6HR PRN PRN Reason: Diarrhea Stop: 09/18/17 12:48 Lorazepam (Ativan) 0.5 mg IVP Q6HR PRN; Protocol PRN Reason: Agitation Stop: 09/20/17 17:34 Last Admin: 07/23/17 08:34 Dose: 0.5 mg Magnesium Hydroxide (Milk Of Magnesia) 30 ml GT DAILY PRN PRN Reason: Constipation Stop: 09/18/17 10:06 Metoprolol Tartrate (Lopressor) 25 mg GT DAILY [facility] Stop: 09/19/17 08:59 Last Admin: 07/23/17 08:32 Dose: Not Given Miscellaneous (Vancomycin Iv Per Pharmacy) 1 ea PRN [facility] Stop: 09/18/17 12:14 Miscellaneous (Probiotic Screen) 1 ea PRN PRN PRN Reason: PROTOCOL Stop: 09/18/17 14:45 Miscellaneous (Vte Chemical Prophylaxis Screen/ Admission) 1 ea PRN PRN PRN Reason: PROTOCOL Stop: 09/19/17 14:30 Multivitamins/Vitamin C (Theragran) 1 tab GT DAILY JUANI Stop: 09/19/17 08:59 Last Admin: 07/23/17 08:32 Dose: Not Given Mupirocin (Bactroban Oint) 1 appl NS BID JUANI Stop: 07/25/17 17:01 Last Admin: 07/23/17 08:32 Dose: 1 appl Nitrofurantoin Macrocrystals (Macrobid) 100 mg PO BID JUANI PRN Reason: Protocol Stop: 09/21/17 16:59 Pantoprazole Sodium (Protonix) 40 mg PO BID JUANI Stop: 09/21/17 16:59 Polyethylene Glycol (Miralax) 17 gm GT DAILY JUANI Stop: 09/19/17 08:59 Last Admin: 07/23/17 08:33 Dose: Not Given Potassium Chloride (Potassium Chloride Elixir) 20 meq GT DAILY JUANI Stop: 09/19/17 08:59 Last Admin: 07/23/17 08:33 Dose: Not Given Sodium Phosphate (Fleet Enema) 135 ml RC DAILY PRN PRN Reason: Constipation Stop: 09/18/17 10:19 - Procedures Procedures: Procedures Procedure Code Date CHANGE FEEDING DEVICE IN UP INTEST TRACT, [employer] APPROACH [id number] 09/03/16 INSERT INDWELLING CATH 57.94 12/31/09 INSERT PICC CATH [id number] 05/18/14 INSERTION OF FEEDING DEVICE INTO STOMACH, ENDO [id number] 10/11/16 INSERTION OF INFUSION DEVICE INTO R ATRIUM, PERC APPROACH [id number] 10/11/16 VENOUS CATHETERIZATION NEC 38.93 05/18/14 Assessment/Plan - Problem List Patient Problems: All Active Problems Seizure (Active 06/15/15) R56.9 Allergen injection reaction (Acute) T80.89XA Observed seizure-like activity (Acute) R56.9 Systemic inflammatory response syndrome (Acute) 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
[2017-07-23] MEDS ORDERED: Pantoprazole 40 mg EC Tab PO SCH (17:00)
[2017-07-24 08:12] LABS: ANTITRYPSIN SERUM A1 147 mg/dL (90-200); CERULOPLASMIN 27.8 mg/dL (19.0-39.0); F1 ACTIN-SMOOTH MUSC IGG 23 Units (0-19); FERRITIN 87 ng/mL (15-150); HEP B CORE IGM Negative (Negative); IRON SATURATION 17 % (15-55); TIBC (LC) 231 ug/dL (250-450); UIBC 191 ug/dL (131-425)
== END 2017-07-23 17:30 | disposition home or self-care (01) | DRG 871 ==
LOC: ER 23:05 → TELE 07-20 01:35
PROVIDERS: ADMIT Internal Medicine; ATTEND Internal Medicine
PROC: 06HM33Z Insertion of Infusion Device into Right Femoral Vein, Percutaneous Approach (ICD-10-PCS; 2017-07-20)
PROC: 0DB68ZX Excision of Stomach, Via Natural or Artificial Opening Endoscopic, Diagnostic (ICD-10-PCS; principal; 2017-07-22)
PROC: 0D20XUZ Change Feeding Device in Upper Intestinal Tract, External Approach (ICD-10-PCS; 2017-07-22)
DX: A41.9 Sepsis, unspecified organism (principal); G80.0 Spastic quadriplegic cerebral palsy; G93.49 Other encephalopathy; K29.71 Gastritis, unspecified, with bleeding; F73 Profound intellectual disabilities; E87.1 Hypo-osmolality and hyponatremia; R13.10 Dysphagia, unspecified; N28.9 Disorder of kidney and ureter, unspecified; E87.6 Hypokalemia; R14.0 Abdominal distension (gaseous); Z66 Do not resuscitate; G40.909 Epilepsy, unspecified, not intractable, without status epilepticus; I10 Essential (primary) hypertension; D47.3 Essential (hemorrhagic) thrombocythemia; H54.7 Unspecified visual loss; D64.9 Anemia, unspecified; R31.9 Hematuria, unspecified; K21.0 Gastro-esophageal reflux disease with esophagitis; K44.9 Diaphragmatic hernia without obstruction or gangrene; Z88.1 Allergy status to other antibiotic agents; Z93.1 Gastrostomy status; Z88.7 Allergy status to serum and vaccine; Z88.8 Allergy status to other drugs, medicaments and biological substances
CPT/HCPCS: 36415-UA; 71010-TC; 76700-TC; 80048-TC; 80053-TC; 80061-TC; 80074-90; 80076-TC; 80202-TC; 81001-TC; 82103-90; 82390-90; 82728-90; 82948-90; 83516-90; 83540-90; 83550-90; 83605; 83735-TC; 83880-TC; 84484-TC; 85007-TC; 85025-TC; 85027-TC; 85610-TC; 85730-TC; 86141-TC; 86255-90; 87086-90; 93005; 94760; 96375; C9113; J1644; J1956; J2001; J2060; J2405; J2543; J2704; J3370; J3480; J7030; J7042; Z7506; Z7610